=== PATIENT | female | born 1990 | race Caucasian/White ===

== ENCOUNTER 2016-10-09 17:24 | Emergency (ER) | payer BC ==
[2016-10-09 17:45] VITALS: BP 130/89; PULSE 90; O2SAT 96
--- NOTE | 2016-10-09 17:50 | ERPHSYRPT ---
- History of Present Illness Time Seen by Provider: 10/09/16 17:45 Source: patient Physician History: The patient is a 26-year-old female with a friend complaining of hurting her low back when she slipped while working with her donkey. This happened earlier today. Her low back muscles have been painful now. She has a past medical history of back pain. She denies any numbness or tingling in her legs. Timing/Duration: today Method of Injury: fall Quality: aching Back Pain Location: lumbar spine, paraspinous muscles Severity of Pain-Max: moderate Severity of Pain-Current: moderate Modifying Factors: Improves With: nothing Associated Symptoms: denies symptoms Previous symptoms: same symptoms as today Allergies/Adverse Reactions: No Known Drug Allergies Allergy (Verified 10/09/16 17:38) Home Medications: Bupropion HCl 150 mg Sr [Wellbutrin SR 150 MG] 200 mg PO BID 10/29/15 [ History] Vits W-Ca,Fe,FA(<1Mg) [] 1 each PO DAILY 10/09/16 [History] Hx Tetanus, Diphtheria Vaccination/Date Given: Yes (unknown) Hx Influenza Vaccination/Date Given: No Hx Pneumococcal Vaccination/Date Given: No - Review of Systems Constitutional: No Fever, No Chills Eyes: No Symptoms Ears, Nose, & Throat: No Symptoms Respiratory: No Cough, No Dyspnea Cardiac: No Chest Pain, No Edema, No Syncope Abdominal/Gastrointestinal: No Abdominal Pain, No Nausea, No Vomiting, No Diarrhea Genitourinary Symptoms: No Dysuria Musculoskeletal: Back Pain, Fall Skin: No Rash Neurological: No Dizziness, No Focal Weakness, No Sensory Changes Psychological: No Symptoms Endocrine: No Symptoms Hematologic/Lymphatic: No Symptoms Immunological/Allergic: No Symptoms All Other Systems: Reviewed and Negative - Past Medical History Pertinent Past Medical History: Yes Neurological History: No Pertinent History ENT History: No Pertinent History Cardiac History: Hypertension Respiratory History: No Pertinent History Endocrine Medical History: No Pertinent History Musculoskeletal History: Other GI Medical History: No Pertinent History History: No Pertinent History Psycho-Social History: Anxiety, Depression Female Reproductive Disorders: No Pertinent History Other Medical History: CONSTIPATION - Past Surgical History Past Surgical History: No Neuro Surgical History: No Pertinent History Cardiac: No Pertinent History Respiratory: No Pertinent History Gastrointestinal: No Pertinent History Genitourinary: No Pertinent History Musculoskeletal: No Pertinent History Female Surgical History: No Pertinent History Other Surgical History: excision of back cyst - Aug 2015 - Social History Smoking Status: Never smoker Exposure to second hand smoke: Yes Drug Use: none Patient Lives Alone: No - Physical Exam General Appearance: no apparent distress, alert Eye Exam: PERRL/EOMI, eyes nml inspection Neck Exam: normal inspection, non-tender, supple, full range of motion, No meningismus, No midline tenderness Respiratory Exam: normal breath sounds, lungs clear, No respiratory distress Cardiovascular Exam: regular rate/rhythm, normal heart sounds Gastrointestinal Exam: soft, No tenderness, No mass Back Exam: muscle spasm (lower bilateral paraspinous muscles), No vertebral tenderness Extremity Exam: normal inspection, normal range of motion, No calf tenderness, No pedal edema Neurologic Exam: alert, oriented x 3, cooperative, program analyst II-XII nml as tested, normal mood/affect, nml station & gait, sensation nml, No motor deficits Skin Exam: normal color, warm, dry, No rash SpO2 Interpretation: normal - Progress Progress: improved Counseled pt/family regarding: diagnosis - Departure Time of Disposition: 17:52 Departure Disposition: Home Clinical Impression: Back pain Condition: Stable Critical Care Time: No Additional Instructions: Take tylenol and ibuprofen as needed. Apply ice as needed. Take flexeril 10 mg every 8 hrs as needed. Prescriptions: Cyclobenzaprine HCl [Flexeril] 10 mg PO Q8H PRN PRN #10 tablet PRN Reason: Pain
[2016-10-09] MEDS ORDERED: TORAdol 30 mg Injection IM ONE (18:06)
[2016-10-09] MEDS ORDERED: TORAdol 30 mg Injection ONE (18:08)
== END 2016-10-09 18:02 | disposition home or self-care (01) ==
LOC: ED 17:24
DX: M54.9 Dorsalgia, unspecified (principal); W18.39XA Other fall on same level, initial encounter; I10 Essential (primary) hypertension
CPT/HCPCS: 96372; 99281; 99284; J1885

== ENCOUNTER 2017-01-18 06:11 | Emergency (ER) | payer BC ==
[2017-01-18] MEDS ORDERED: Reglan 10 MG/2 ML IV ONE (06:25)
[2017-01-18] MEDS ORDERED: BENADRYL 50 MG/ML IV ONE (06:25)
[2017-01-18] MEDS ORDERED: Sodium Chloride 0.9% 1000 ML 1,000 ML IV STA (06:25)
[2017-01-18] MEDS ORDERED: TORAdol 30 mg Injection IV ONE (06:25)
[2017-01-18] MEDS ORDERED: TORAdol 30 mg Injection ONE (06:37)
[2017-01-18] MEDS ORDERED: Reglan 10 MG/2 ML ONE (06:37)
[2017-01-18] MEDS ORDERED: BENADRYL 50 MG/ML ONE (06:37)
[2017-01-18] MEDS ORDERED: Sodium Chloride 0.9% 1000 ML 1,000 ML ONE (06:38)
--- NOTE | 2017-01-18 06:46 | ERPHSYRPT ---
- History of Present Illness Time Seen by Provider: 01/18/17 06:13 Source: patient, family () Patient Subjective Stated Complaint: Pt sts headaches off and on for awhile. Sts today pain 10/10 with nausea and dizziness. Sts headache has been pretty constant for the last few weeks after a control change. Pt sts lights and loud noises increase pain. Sts similar to headaches in the past. Triage Nursing Assessment: Pt alert, oriented, answers all questions appropriately. Skin p/w/d, resps non-labored. Follows all commands appropriately. Ambulatory, steady gait noted. Physician History: CC: headache HX: 26 y/o patient of JAMI Locke. She has hx of some headaches in the past. She had been on OCP and stopped it due to headache. She restarted a different kind thru Dr De La Garza. Now has headaches again. Worse in left. No fever. She has photophobia. Headache rather severe. Not better with cold compress. No N/T/W. Last headache of this severity was one month ago. Severity of Pain-Max: severe Severity of Pain-Current: severe Allergies/Adverse Reactions: No Known Drug Allergies Allergy (Verified 01/18/17 06:19) Home Medications: Bupropion HCl 150 mg Sr [Wellbutrin SR 150 MG] 200 mg PO BID 10/29/15 [ History] Vits W-Ca,Fe,FA(<1Mg) [] 1 each PO DAILY 10/09/16 [History] Desogestrel-Ethinyl Estradiol [Enskyce] 1 each PO 01/18/17 [History] Loratadine 10 mg PO 01/18/17 [History] Nortriptyline HCl 25 mg PO HS 01/18/17 [History] Hx Tetanus, Diphtheria Vaccination/Date Given: Yes (unknown) Hx Influenza Vaccination/Date Given: No Hx Pneumococcal Vaccination/Date Given: No Immunizations Up to Date: Yes - Review of Systems Constitutional: No Fever, No Chills Eyes: Photophobia, No Vision Changes Ears, Nose, & Throat: No Symptoms Respiratory: No Cough, No Dyspnea Cardiac: No Chest Pain Abdominal/Gastrointestinal: Nausea, No Abdominal Pain, No Vomiting Musculoskeletal: No Back Pain, No Neck Pain Skin: No Rash Neurological: Headache, No Focal Weakness, No Parasthesia All Other Systems: Reviewed and Negative - Past Medical History Pertinent Past Medical History: Yes Neurological History: No Pertinent History ENT History: No Pertinent History Cardiac History: Hypertension Respiratory History: No Pertinent History Endocrine Medical History: No Pertinent History Musculoskeletal History: Other GI Medical History: No Pertinent History History: No Pertinent History Psycho-Social History: Anxiety, Depression Female Reproductive Disorders: No Pertinent History Other Medical History: CONSTIPATION - Past Surgical History Past Surgical History: No Neuro Surgical History: No Pertinent History Cardiac: No Pertinent History Respiratory: No Pertinent History Gastrointestinal: No Pertinent History Genitourinary: No Pertinent History Musculoskeletal: No Pertinent History Female Surgical History: No Pertinent History Other Surgical History: excision of back cyst - Aug 2015 - Social History Smoking Status: Never smoker Exposure to second hand smoke: No Drug Use: none Patient Lives Alone: No - Female History Hx Last Menstrual Period: unsure of last regular period - spotting now - Nursing Vital Signs Nursing Vital Signs: Initial Vital Signs Temperature 97.8 F Temperature Source Oral Pulse Rate 91 Respiratory Rate 16 Blood Pressure [Right Arm] 122/83 Pain Intensity 10 - Physical Exam General Appearance: alert Eye Exam: PERRL/EOMI, photophobia Ears, Nose, Throat Exam: normal ENT inspection, moist mucous membranes Neck Exam: normal inspection, non-tender, supple, No meningismus Respiratory Exam: normal breath sounds, lungs clear Cardiovascular Exam: regular rate/rhythm Gastrointestinal/Abdominal Exam: soft, No tenderness, No distention Extremity Exam: normal inspection, normal range of motion Mental Status Exam: alert, oriented x 3, cooperative robotype operator Exam: normal hearing, normal speech, PERRL Coordination/Gait Exam: normal gait, normal cerebellar function Motor/Sensory Exam: no motor deficit, no sensory deficit Skin Exam: warm, dry, No rash SpO2 Interpretation: normal SpO2: 99 Oxygen Delivery: Room Air - Course Nursing assessment & vital signs reviewed: Yes Ordered Tests: Active Orders 24 hr Category Date Time Status IV Insertion STAT Care 01/18/17 06:25 Active Oxygen-ED Only NON-REBREATHER 100% Care 01/18/17 06:25 Active HCG,QUALITATIVE URINE Stat Lab 01/18/17 06:26 Completed VENOUS BLOOD GAS Urgent Lab 01/18/17 06:45 Completed Medication Summary Generic Name Dose Route Start Last Admin Trade Name Freq PRN Reason Stop Dose Admin Sodium Chloride 1,000 mls @ 999 mls/hr 01/18/17 06:25 01/18/17 06:48 Sodium Chloride 0.9% 1000 Ml IV 01/18/17 07:25 999 mls/hr .Q1H1M STA Administration Discontinued Medications Generic Name Dose Route Start Last Admin Trade Name Mandy PRN Reason Stop Dose Admin Diphenhydramine HCl 25 mg 01/18/17 06:25 01/18/17 06:47 Benadryl 50 Mg/Ml IV 01/18/17 06:26 25 mg STAT ONE Administration Diphenhydramine HCl Confirm 01/18/17 06:37 Benadryl 50 Mg/Ml Administered 01/18/17 06:38 Dose 50 mg .ROUTE .STK-MED ONE Sodium Chloride Confirm 01/18/17 06:38 Sodium Chloride 0.9% 1000 Ml Administered 01/18/17 06:39 Dose 1,000 mls @ ud .ROUTE .STK-MED ONE Ketorolac Tromethamine 30 mg 01/18/17 06:25 01/18/17 06:47 Toradol 30 Mg Injection IV 01/18/17 06:26 30 mg STAT ONE Administration Ketorolac Tromethamine Confirm 01/18/17 06:37 Toradol 30 Mg Injection Administered 01/18/17 06:38 Dose 30 mg .ROUTE .STK-MED ONE Metoclopramide HCl 10 mg 01/18/17 06:25 01/18/17 06:48 Reglan 10 Mg/2 Ml IV 01/18/17 06:26 10 mg STAT ONE Administration Metoclopramide HCl Confirm 01/18/17 06:37 Reglan 10 Mg/2 Ml Administered 01/18/17 06:38 Dose 10 mg .ROUTE .STK-MED ONE Lab/Rad Data: Laboratory Results 01/18/17 01/18/17 Range/Units 06:45 06:26 VBG pH 7.39 (7.32-7.42) VBG pCO2 at Pat Temp 42 (42-55) mm/Hg VBG pO2 at Pat Temp 35 (25-40) mm/Hg VBG HCO3 25.4 (22-28) meq/L VBG O2 Sat (Misty) 74.8 L (95-100) VBG Base Excess 0.3 (-2.0-2.0) VBG Hemoglobin 14.4 VBG Carboxyhemoglobin 3.6 (0.0-6.9) % T HGB POC Potassium 4.0 (3.5-5.1) Urine HCG, Qual NEGATIVE (Negative) - Progress Progress Note: 01/18/17 06:43 Trial oxygen. Not much relief. Will check VBG. HCG negative. IVF, benadryl, reglan, and toradol ordered for headache relief. Advised she follow up with JAMI Locke to discuss. Possibly this migraine type phenomena is related to her hormone manipulation. 01/18/17 07:03 Pain improved to level 2 after meds. Will release with migraine instructions. Counseled pt/family regarding: lab results, diagnosis, need for follow-up - Departure Time of Disposition: 07:04 Departure Disposition: Home Clinical Impression: Headache Qualifiers: Headache type: unspecified Headache chronicity pattern: episodic headache Intractability: intractable Qualified Code(s): R51 - Headache Condition: Stable Critical Care Time: No Referrals: WENDIE LOCKE [NON-STAFF PHY W/O PRIVILEGES] - Instructions: Headache Additional Instructions: HEADACHE 1. After discharge from the emergency department, you should rest at home in a cool, dark, quiet place for 12-24 hours. 2. If any of the following signs or symptoms are noticed, you should be re- evaluated right away: A. Visual changes B. Stiff Neck C. Change in quality or location of pain D. Fever E. Recurrent vomiting 3. If pain medications were prescribed or given, they may cause drowsiness. Follow up with JAMI Locke this week. No driving today and stay with family. Return for problems or concerns.
[2017-01-18 06:51] LABS: VBG BASE EXCESS 0.3 (-2.0-2.0); VBG CARBOXYHEMOGLOBIN 3.6 % T HGB (0.0-6.9); VBG HCO3- 25.4 meq/L (22-28); VBG HEMOGLOBIN 14.4; VBG O2 SATURATION 74.8 (95-100); VBG pH 7.39 (7.32-7.42)
[2017-01-18 07:52] VITALS: BP 123/76; PULSE 87; O2SAT 98
== END 2017-01-18 07:51 | disposition home or self-care (01) ==
LOC: ED 06:11
DX: R51 Headache (principal); R11.0 Nausea; R42 Dizziness and giddiness; Z79.899 Other long term (current) drug therapy; I10 Essential (primary) hypertension
CPT/HCPCS: 36000; 82805; 84703; 96360; 96374; 96375; 99284; J1200; J1885

== ENCOUNTER 2017-02-13 13:02 | Emergency (ER) | payer BC ==
[2017-02-13 13:10] VITALS: BP 165/98
[2017-02-13] MEDS ORDERED: Nitrostat 0.4 MG (ED) SL ONE ×2 (13:23→13:27)
[2017-02-13] MEDS ORDERED: BABY ASPIRIN 81 MG CHEW PO ONE (13:23)
[2017-02-13] MEDS ORDERED: Sodium Chloride 0.9% 1000 ML 1,000 ML ONE (13:27)
[2017-02-13] MEDS ORDERED: BABY ASPIRIN 81 MG CHEW ONE (13:27)
--- NOTE | 2017-02-13 13:28 | ERPHSYRPT ---
- History of Present Illness Time Seen by Provider: 02/13/17 13:25 Historian: patient, family Exam Limitations: no limitations Patient Subjective Stated Complaint: pt reports migranies et chest pain beginning on [id number]-[id number] diaphoresis-nausea with pain-pain substernal et nonradiaiting Triage Nursing Assessment: pt pink warm et orq-pfpod-bhoj easy et nonlabored- lungs clear et equal bialterally-cap refill 3 seconds-radial pulse regular et strong Physician History: pt reports migranies et chest pain beginning on avbspim-aybfsdgvbqvs-bessobl diaphoresis-nausea with pain-pain sub sternal and non radiating, patient has strong family hx of heart disease Timing/Duration: day(s) (4-5 days) Activities at Onset: none Quality: stabbing Location: substernal Chest Pain Radiation: no radiation Severity of Pain-Max: mild Severity of Pain-Current: mild Modifying Factors: Improves With: nothing Aspirin Treatment Today: no aspirin today Allergies/Adverse Reactions: No Known Drug Allergies Allergy (Verified 02/13/17 13:10) Home Medications: Bupropion HCl 150 mg Sr [Wellbutrin SR 150 MG] 200 mg PO BID 10/29/15 [ History] Vits W-Ca,Fe,FA(<1Mg) [] 1 each PO DAILY 10/09/16 [History] Desogestrel-Ethinyl Estradiol [Enskyce] 1 each PO UD 01/18/17 [History] Loratadine 10 mg PO UD 01/18/17 [History] Nortriptyline HCl 25 mg PO HS 01/18/17 [History] Hx Tetanus, Diphtheria Vaccination/Date Given: Yes Hx Influenza Vaccination/Date Given: Yes (2015) Hx Pneumococcal Vaccination/Date Given: No Immunizations Up to Date: Yes - Review of Systems Constitutional: No Fever, No Chills Eyes: No Symptoms Ears, Nose, & Throat: No Symptoms Respiratory: No Cough, No Dyspnea Cardiac: Chest Pain, No Edema, No Syncope Abdominal/Gastrointestinal: No Abdominal Pain, No Nausea, No Vomiting, No Diarrhea Genitourinary Symptoms: No Dysuria Musculoskeletal: No Back Pain, No Neck Pain Skin: No Rash Neurological: No Dizziness, No Focal Weakness, No Sensory Changes Psychological: No Symptoms Endocrine: No Symptoms All Other Systems: Reviewed and Negative - Past Medical History Pertinent Past Medical History: Yes Neurological History: No Pertinent History ENT History: No Pertinent History Cardiac History: Hypertension Respiratory History: No Pertinent History Endocrine Medical History: No Pertinent History Musculoskeletal History: Other GI Medical History: No Pertinent History History: No Pertinent History Psycho-Social History: Anxiety, Depression Female Reproductive Disorders: No Pertinent History Other Medical History: CONSTIPATION - Past Surgical History Past Surgical History: No Neuro Surgical History: No Pertinent History Cardiac: No Pertinent History Respiratory: No Pertinent History Gastrointestinal: No Pertinent History Genitourinary: No Pertinent History Musculoskeletal: No Pertinent History Female Surgical History: No Pertinent History Other Surgical History: excision of back cyst - Aug 2015 - Social History Smoking Status: Never smoker Exposure to second hand smoke: No Drug Use: none Patient Lives Alone: No - Female History Hx Last Menstrual Period: control - Nursing Vital Signs Nursing Vital Signs: Initial Vital Signs Temperature 98.3 F Temperature Source Oral Pulse Rate [] 100 Pulse Rate 100 Respiratory Rate 20 Blood Pressure [] 165/98 Pain Intensity 5 - Physical Exam General Appearance: no apparent distress, alert Eye Exam: PERRL/EOMI, eyes nml inspection Ears, Nose, Throat Exam: normal ENT inspection, moist mucous membranes Neck Exam: normal inspection, non-tender, supple, full range of motion Respiratory Exam: normal breath sounds, lungs clear, No respiratory distress Cardiovascular Exam: regular rate/rhythm, normal heart sounds Gastrointestinal/Abdomen Exam: soft, No tenderness, No mass Back Exam: normal inspection, No CVA tenderness, No vertebral tenderness Extremity Exam: normal inspection, normal range of motion Neurologic Exam: alert, oriented x 3, cooperative, normal mood/affect, sensation nml, No motor deficits Skin Exam: normal color, warm, dry SpO2: 100 Oxygen Delivery: Room Air - Course Nursing assessment & vital signs reviewed: Yes EKG Interpreted by Me: Sinus Rhythm - Radiology Exams Chest X-ray Interpretation: Reviewed by me Ordered Tests: Active Orders 24 hr Category Date Time Status Memorial Designer STAT Care 02/13/17 13:27 Active EKG-ER Only STAT Care 02/13/17 13:23 Active Pulse Oximetry (ED) STAT Care 02/13/17 13:27 Active CHEST 2 VIEWS (PA AND LAT) Stat Exams 02/13/17 13:24 Taken CBC W DIFF Stat Lab 02/13/17 13:15 Completed CMP Stat Lab 02/13/17 13:15 Completed TROPONIN Stat Lab 02/13/17 13:15 Completed Medication Summary Generic Name Dose Route Start Last Admin Trade Name Mandy PRN Reason Stop Dose Admin Sodium Chloride 1,000 mls @ 50 mls/hr 02/13/17 13:30 02/13/17 13:29 Sodium Chloride 0.9% 1000 Ml IV 03/15/17 13:29 50 mls/hr .Q20H VINAYAK Administration Discontinued Medications Generic Name Dose Route Start Last Admin Trade Name Mandy PRN Reason Stop Dose Admin Aspirin 324 mg 02/13/17 13:23 02/13/17 13:30 Baby Aspirin 81 Mg Chew PO 02/13/17 13:24 324 mg STAT ONE Administration Aspirin Confirm 02/13/17 13:27 Baby Aspirin 81 Mg Chew Administered 02/13/17 13:28 Dose 324 mg .ROUTE .STK-MED ONE Nitroglycerin 0.4 mg 02/13/17 13:23 02/13/17 13:30 Nitrostat 0.4 Mg (Ed) SL 02/13/17 13:24 0.4 mg STAT ONE Administration Nitroglycerin Confirm 02/13/17 13:27 Nitrostat 0.4 Mg (Ed) Administered 02/13/17 13:28 Dose 0.4 mg SL .STK-MED ONE Ondansetron HCl Confirm 02/13/17 13:36 Zofran 4 Mg/2 Ml Vial Administered 02/13/17 13:37 Dose 4 mg .ROUTE .STK-MED ONE Ondansetron HCl 4 mg 02/13/17 13:39 02/13/17 13:40 Zofran 4 Mg/2 Ml Vial IV 02/13/17 13:40 4 mg STAT ONE Administration Lab/Rad Data: Laboratory Result Diagrams 02/13/17 13:15 02/13/17 13:15 Laboratory Results 02/13/17 02/13/17 02/13/17 Range/Units 13:15 13:15 13:15 WBC 6.9 (4.0-10.5) K/mm3 RBC 4.50 (4.1-5.4) M/mm3 Hgb 13.4 (12.0-16.0) gm/dl Hct 38.8 (35-47) % MCV 86.2 (78-100) fl MCH 29.8 (26-32) pg MCHC 34.5 (32-36) g/dl RDW 12.6 (11.5-14.0) % Plt Count 306 (150-450) K/mm3 MPV 10.0 H (6-9.5) fl Gran % 51.7 (36.0-66.0) % Lymphocytes % 34.7 (24.0-44.0) % Monocytes % 12.0 (0.0-12.0) % Eosinophils % 1.3 (0.00-5.0) % Basophils % 0.3 (0.0-0.4) % Basophils # 0.02 (0-0.4) Sodium 142 (136-145) mEq/L Potassium 4.0 (3.5-5.1) mEq/L Chloride 106 (98-107) mEq/L Carbon Dioxide 25.0 (21-32) mEq/L Anion Gap 14.6 (5-15) MEQ/L BUN 8 L (9-20) mg/dL Creatinine 1.01 (0.55-1.30) mg/dl Estimated GFR > 60 ML/MIN Glucose 88 (70-110) MG/DL Calcium 8.9 (8.5-10.1) mg/dL Total Bilirubin 0.20 (0.2-1.0) mg/dL AST 17 (15-37) U/L ALT 24 (12-78) U/L Alkaline Phosphatase 75 (46-116) U/L Troponin I < 0.017 (0.000-0.056) ng/ml Serum Total Protein 7.5 (6.4-8.2) gm/dL Albumin 3.4 (3.4-5.0) g/dL - Progress Progress: improved Air Movement: good Blood Culture(s) Obtained: No Antibiotics given: No Counseled pt/family regarding: lab results, diagnosis, need for follow-up, rad results - Departure Time of Disposition: 14:06 Departure Disposition: Home Clinical Impression: Dyspepsia, Chest pain of uncertain etiology Condition: Stable Critical Care Time: Yes Critical Care Time(excluding separately billable procedures): 30-74 minutes Referrals: BRANDEE ANSARI [Primary Care Provider] - Instructions: Atypical Chest Pain, Gastroesophageal Reflux Disease (GERD), GERD Diet Prescriptions: Omeprazole 40 mg PO HS #30 capsule. Famotidine 20 mg [Pepcid 20 MG] 20 mg PO BID #60 tablet
[2017-02-13] MEDS ORDERED: Sodium Chloride 0.9% 1000 ML 1,000 ML IV SCH (13:30)
[2017-02-13 13:31] LABS: BASOPHIL % 0.3 % (0.0-0.4); Eosinophil % 1.3 % (0.00-5.0); Granulocytes % 51.7 % (36.0-66.0); Lymphocytes % 34.7 % (24.0-44.0); Mean Cell Volume 86.2 fl (78-100); Mean Corpuscular Hemoglobin 29.8 pg (26-32); Platelet Count 306 K/mm3 (150-450); Red Cell Distribution Width 12.6 % (11.5-14.0); White Blood Count 6.9 K/mm3 (4.0-10.5)
[2017-02-13] MEDS ORDERED: Zofran 4 MG/2 ML VIAL ONE (13:36)
[2017-02-13] MEDS ORDERED: Zofran 4 MG/2 ML VIAL IV ONE (13:39)
[2017-02-13 13:40] LABS: ALBUMIN 3.4 g/dL (3.4-5.0); ALKALINE PHOSPHATASE 75 U/L (46-116); ANION GAP 14.6 MEQ/L (5-15); BLOOD UREA NITROGEN 8 mg/dL (9-20); CHLORIDE 106 mEq/L (98-107); Glucose 88 MG/DL (70-110); SGOT/AST 17 U/L (15-37); SGPT/ALT 24 U/L (12-78); SODIUM 142 mEq/L (136-145); Total Protein 7.5 gm/dL (6.4-8.2)
[2017-02-13 13:57] VITALS: PULSE 100
[2017-02-13 14:09] VITALS: O2SAT 100
--- NOTE | 2017-02-13 22:06 | XRAY ---
Indication: Chest pain. Comparison: December 11, 2014. PA/lateral chest again demonstrates normal heart, lungs, and bony thorax.
== END 2017-02-13 14:19 | disposition home or self-care (01) ==
LOC: ED 13:02
DX: R10.13 Epigastric pain (principal); R07.89 Other chest pain; R61 Generalized hyperhidrosis; R11.0 Nausea; I10 Essential (primary) hypertension
CPT/HCPCS: 36000; 36415; 71020; 80053; 84484; 85025; 93005; 93041; 96360; 96361; 99283; 99285; J2405; A9270-GY

== ENCOUNTER 2017-10-03 11:37 | Emergency (ER) | payer BC ==
--- NOTE | 2017-10-03 12:07 | ERPHSYRPT ---
- History of Present Illness Time Seen by Provider: 10/03/17 11:54 Source: patient, family () Patient Subjective Stated Complaint: pt reports constipation intermittant for several days-mild relief with miralax no other tx tried-reports low intermittant cramping beginning garth 3 days ago-states it has not changed-denies vaginal discharge Triage Nursing Assessment: pt pink warm and tlg-tovsf-evls easy and nonlabored- abd soft and nontender to palp-pt is garth 8 wks Physician History: CC: abdominal cramping Hx: 27 y/o patient of Dr Alexander is around 8 weeks . Some constipation, abd cramping, and clear discharge today. No fever, vaginal bleeding, dysuria. She had prior diagnostic laparoscopy remotely. No intercourse since discovering . She had in vitro in May last year but no results. This current was naturally occuring. Allergies/Adverse Reactions: No Known Drug Allergies Allergy (Verified 10/03/17 11:55) Home Medications: Vits W-Ca,Fe,FA(<1Mg) [] 1 each PO DAILY 10/09/16 [History] Hx Tetanus, Diphtheria Vaccination/Date Given: Yes Hx Influenza Vaccination/Date Given: Yes (2016) Hx Pneumococcal Vaccination/Date Given: No - Review of Systems Constitutional: No Fever, No Chills Eyes: No Symptoms Ears, Nose, & Throat: No Symptoms Respiratory: No Cough, No Dyspnea Cardiac: No Chest Pain Abdominal/Gastrointestinal: Abdominal Pain (abd cramping), No Nausea, No Vomiting, No Diarrhea Genitourinary Symptoms: , Vaginal Discharge (clear), No Dysuria, No Vaginal Bleeding Musculoskeletal: No Back Pain Skin: No Rash Neurological: No Headache All Other Systems: Reviewed and Negative - Past Medical History Pertinent Past Medical History: Yes Neurological History: No Pertinent History ENT History: No Pertinent History Cardiac History: Hypertension Respiratory History: Asthma Endocrine Medical History: No Pertinent History Musculoskeletal History: Other GI Medical History: No Pertinent History History: No Pertinent History Psycho-Social History: Anxiety, Depression Female Reproductive Disorders: No Pertinent History Other Medical History: CONSTIPATION - Past Surgical History Past Surgical History: Yes Neuro Surgical History: No Pertinent History Cardiac: No Pertinent History Respiratory: No Pertinent History Gastrointestinal: No Pertinent History Genitourinary: No Pertinent History Musculoskeletal: No Pertinent History Female Surgical History: Other Other Surgical History: excision of back cyst - Aug 2015 - Social History Smoking Status: Never smoker Exposure to second hand smoke: No Drug Use: none Patient Lives Alone: No - Female History Hx Now: Yes - Nursing Vital Signs Nursing Vital Signs: Initial Vital Signs Temperature 97.9 F 10/03/17 11:49 Pulse Rate 89 10/03/17 11:49 Respiratory Rate 20 10/03/17 11:49 Blood Pressure 141/84 10/03/17 11:49 O2 Sat by Pulse Oximetry 100 10/03/17 11:49 Pain Scale Pain Intensity 1 - Physical Exam General Appearance: alert, obese, other (pleasant lady) Eye Exam: PERRL/EOMI Ears, Nose, Throat Exam: normal ENT inspection, moist mucous membranes Neck Exam: normal inspection, non-tender, supple Respiratory Exam: normal breath sounds, lungs clear Cardiovascular Exam: regular rate/rhythm Gastrointestinal/Abdomen Exam: soft, No tenderness, No distention Pelvic Exam: normal external exam, vaginal discharge (physiologic), No vaginal bleeding Back Exam: normal inspection Extremity Exam: normal inspection, normal range of motion Neurologic Exam: alert, oriented x 3, cooperative, customs inspector II-XII nml as tested, sensation nml, No motor deficits Skin Exam: warm, dry, No rash SpO2 Interpretation: normal SpO2: 100 Oxygen Delivery: Room Air - Course Nursing assessment & vital signs reviewed: Yes - Radiology Ultrasound Exam ob Ultrasound: tele radiology report (single viable 8 week IUP) Ordered Tests: Active Orders 24 hr Category Date Time Status Cath for Specimen-Straight STAT Care 10/03/17 12:00 Active Pelvic Exam Assist STAT Care 10/03/17 11:59 Active OB TRANSVAGINAL [US] Stat Exams 10/03/17 12:00 Completed CBC W DIFF Stat Lab 10/03/17 11:59 Completed CULTURE,URINE Stat Lab 10/03/17 12:46 Received HCG, Quantitative (Inhouse) Stat Lab 10/03/17 11:59 Ordered UA W/ MICROSCOPIC Stat Lab 10/03/17 12:46 Completed Wet Prep Stat Lab 10/03/17 12:46 Completed Lab/Rad Data: Laboratory Result Diagrams 10/03/17 11:59 Laboratory Results 10/03/17 10/03/17 10/03/17 Range/Units 12:46 12:46 11:59 WBC 9.8 (4.0-10.5) K/mm3 RBC 4.40 (4.1-5.4) M/mm3 Hgb 13.0 (12.0-16.0) gm/dl Hct 38.5 (35-47) % MCV 87.5 (78-100) fl MCH 29.5 (26-32) pg MCHC 33.8 (32-36) g/dl RDW 12.4 (11.5-14.0) % Plt Count 343 (150-450) K/mm3 MPV 9.5 (6-9.5) fl Gran % 61.0 (36.0-66.0) % Lymphocytes % 25.4 (24.0-44.0) % Monocytes % 12.3 H (0.0-12.0) % Eosinophils % 1.1 (0.00-5.0) % Basophils % 0.2 (0.0-0.4) % Basophils # 0.02 (0-0.4) Ur Collection Type CATH Urine Color YELLOW (YELLOW) Urine Appearance CLEAR (CLEAR) Urine pH 6.0 (5-6) Ur Specific [place] 1.005 (1.005-1.025) Urine Protein NEGATIVE (Negative) Urine Ketones NEGATIVE (NEGATIVE) Urine Blood 50 (0-5) Mychal/ul Urine Nitrite NEGATIVE (NEGATIVE) Urine Bilirubin NEGATIVE (NEGATIVE) Urine Urobilinogen NORMAL (0-1) mg/dL Ur Leukocyte Esterase TRACE (NEGATIVE) Urine Microscopic RBC 0-2 (0-2) /HPF Ur Epithelial Cells FEW (FEW) /HPF Urine Bacteria FEW (NEGATIVE) /HPF Urine Culture Reflexed YES (NO) Urine Glucose NEGATIVE (NEGATIVE) mg/dL WBC (Wet Prep) None Seen RBC (Wet Prep) Rare Epi Cells (Wet Prep) Few Bacteria (Wet Prep) Few Clue Cells (Wet Prep) Few Trichomonas (Wet Prep) None Seen Budding Yeast (Wet Prp) None Seen Specimen Received 10-03-17 1300 - Progress Progress Note: 10/03/17 13:12 Pt stable. Sonogram reassuring. Will release with instructions to follow up with Dr Alexander. Counseled pt/family regarding: lab results, diagnosis, need for follow-up, rad results - Departure Time of Disposition: 13:13 Departure Disposition: Home Clinical Impression: 8 week intrauterine Condition: Stable Critical Care Time: No Referrals: MONET ALEXANDER [ACTIVE STAFF] - Instructions: Nutrition Before and During , Taking Ylsl-ozo-Xzfjzln Medicines During Additional Instructions: Drink plenty of fluids. Follow up with Dr Alexander. Continue vitamins.
[2017-10-03 12:42] LABS: BASOPHIL % 0.2 % (0.0-0.4); Basophil (Absolute #) 0.02 (0-0.4); Eosinophil % 1.1 % (0.00-5.0); Eosinophil (Absolute #) 0.11 (0-0.5); Granulocyte Absolute (ANC) 5.94 (1.4-6.9); Hematocrit 38.5 % (35-47); Lymphocyte (Absolute #) 2.48 (1.0-4.6); Lymphocytes % 25.4 % (24.0-44.0); Mean Cell Volume 87.5 fl (78-100); Mean Corpuscular Hemoglobin 29.5 pg (26-32); Mean Corpuscular Hgb Concent. 33.8 g/dl (32-36); Mean Platelet Volume 9.5 fl (6-9.5); Monocytes % 12.3 % (0.0-12.0); Platelet Count 343 K/mm3 (150-450); Red Cell Distribution Width 12.4 % (11.5-14.0); White Blood Count 9.8 K/mm3 (4.0-10.5)
[2017-10-03 12:52] LABS: Bacteria Few; Clue Cells Few; Red Blood Cells Rare; Trichomonas None Seen; White Blood Cells None Seen
[2017-10-03 12:54] VITALS: PULSE 90
--- NOTE | 2017-10-03 12:57 | XRAY ---
Indication: Cramping. Two-dimensional transvaginal early OB ultrasound performed. Comparison: None There is a single intrauterine gestational sac with presence of a single pole. The mean crown-rump length measures 1.55 cm corresponding to 8 weeks 0 days. heart rate 154 BPM. No abnormal subchorionic fluid collection. Right ovary demonstrates a 2.5 cm corpus luteal cyst. Left ovary unremarkable. No free fluid. Impression: Single viable intrauterine measuring 8 weeks 0 days. Expected date confinement is May 15, 2018.
[2017-10-03 13:03] LABS: Appearance CLEAR (CLEAR); Bacteria FEW /HPF (NEGATIVE); Bilirubin NEGATIVE (NEGATIVE); Blood 50 Ery/ul (0-5); Epithelial Cells FEW /HPF (FEW); Glucose NEGATIVE (NEGATIVE); Ketones NEGATIVE (NEGATIVE); Leukocyte Esterase TRACE (NEGATIVE); Nitrite NEGATIVE (NEGATIVE); Protein,Urine Dip NEGATIVE (Negative); Specific Gravity 1.005 (1.005-1.025); Urobilinogen NORMAL mg/dL (0-1)
[2017-10-03 13:20] VITALS: BP 138/78; O2SAT 98
[2017-10-03 16:42] LABS: ABO TYPING A
[2017-10-03 16:43] LABS: Antibody Screen NEGATIVE (NEGATIVE); RH TYPING POSITIVE
== END 2017-10-03 13:21 | disposition home or self-care (01) ==
LOC: ED 11:37
DX: O26.891 Other specified pregnancy related conditions, first trimester (principal); Z3A.08 8 weeks gestation of pregnancy; K59.00 Constipation, unspecified
CPT/HCPCS: 36415; 76815; 76817; 81000; 84702; 85025; 86850; 86900; 86901; 87086; 87210; 87490; 87590; 99284; P9612

== ENCOUNTER 2017-11-22 17:59 | Emergency (ER) | payer BC ==
--- NOTE | 2017-11-22 19:18 | ERPHSYRPT ---
- History of Present Illness Time Seen by Provider: 11/22/17 19:12 Source: patient Patient Subjective Stated Complaint: cramping in lower abd today. is 15 wks . denies any vaginal discharge or bleeding. states vaginal area itches. Triage Nursing Assessment: ambulated to room per self. skin w/d, color normal, resp easy. tender lower abd. urine yellow, clear. denies any vaginal bleeding Physician History: PATIENT IS A 15 WEEKS GESTATION WITH AN EDC 05/2018 COMPLAINS OF ABDOMINAL CRAMPING THROUGHOUT THE DAY. DENIES VAGINAL BLEEDING. COMPLAINS OF VAGINAL ITCHING. Timing/Duration: today Activites at Onset: none Quality: cramping Onset Location: suprapubic Pain Radiation: none Severity of Pain-Max: moderate Severity of Pain-Current: none Sexual intercourse history: non-contributory Modifying Factors: Improves With: nothing Associated Symptoms: denies symptoms Allergies/Adverse Reactions: miconazole [From Monistat 7] Allergy (Verified 11/22/17 18:15) Home Medications: Vits W-Ca,Fe,FA(<1Mg) [] 1 each PO DAILY 10/09/16 [History] Hydroxyzine HCl 25 mg [Atarax 25 mg] 25 mg PO TID 11/22/17 [History] Melatonin/Pyridoxine HCl (B6) [Melatonin 10 mg Tablet] 1 each PO HS 11/22/17 [ History] Polyethylene Glycol 3350 17 gm [Miralax Powder 17GM PACKET] 17 gm PO DAILY [History] Hx Tetanus, Diphtheria Vaccination/Date Given: Yes Hx Influenza Vaccination/Date Given: Yes (2016) Hx Pneumococcal Vaccination/Date Given: No - Review of Systems Constitutional: No Fever, No Chills Eyes: No Symptoms Ears, Nose, & Throat: No Symptoms Respiratory: No Cough, No Dyspnea Cardiac: No Chest Pain, No Edema, No Syncope Abdominal/Gastrointestinal: Abdominal Pain, No Nausea, No Vomiting, No Diarrhea Genitourinary Symptoms: No Symptoms, No Dysuria Musculoskeletal: No Back Pain, No Neck Pain Skin: No Rash Neurological: No Dizziness, No Focal Weakness, No Sensory Changes Psychological: No Symptoms Endocrine: No Symptoms All Other Systems: Reviewed and Negative - Past Medical History Pertinent Past Medical History: Yes Neurological History: No Pertinent History ENT History: No Pertinent History Cardiac History: Hypertension Respiratory History: Asthma Endocrine Medical History: No Pertinent History Musculoskeletal History: Other GI Medical History: No Pertinent History History: No Pertinent History Psycho-Social History: Anxiety, Depression Female Reproductive Disorders: No Pertinent History Other Medical History: CONSTIPATION - Past Surgical History Past Surgical History: Yes Neuro Surgical History: No Pertinent History Cardiac: No Pertinent History Respiratory: No Pertinent History Gastrointestinal: No Pertinent History Genitourinary: No Pertinent History Musculoskeletal: No Pertinent History Female Surgical History: Other Other Surgical History: excision of back cyst - Aug 2015 - Social History Smoking Status: Never smoker Exposure to second hand smoke: No Drug Use: none Patient Lives Alone: No - Female History Hx Now: Yes - Nursing Vital Signs Nursing Vital Signs: Initial Vital Signs Temperature 97.7 F 11/22/17 18:10 Pulse Rate 81 11/22/17 18:10 Respiratory Rate 16 11/22/17 18:10 Blood Pressure 125/73 11/22/17 18:10 O2 Sat by Pulse Oximetry 100 11/22/17 18:10 Pain Scale Pain Intensity 0 - Physical Exam General Appearance: no apparent distress, alert Eye Exam: PERRL/EOMI, eyes nml inspection Ears, Nose, Throat Exam: normal ENT inspection, TMs normal, pharynx normal, moist mucous membranes Neck Exam: normal inspection, non-tender, supple, full range of motion Respiratory Exam: normal breath sounds, lungs clear, No respiratory distress Cardiovascular Exam: regular rate/rhythm, normal heart sounds, normal peripheral pulses Gastrointestinal/Abdomen Exam: soft, No tenderness, No mass Pelvic Exam: normal external exam, other (UTERINE SIZE 13-14 WEEKS GESTATION) Back Exam: normal inspection, normal range of motion, No CVA tenderness, No vertebral tenderness Extremity Exam: normal inspection, normal range of motion, pelvis stable Neurologic Exam: alert, oriented x 3, cooperative, automation engineer II-XII nml as tested, normal mood/affect, sensation nml, No motor deficits Skin Exam: normal color, warm, dry Lymphatic Exam: No adenopathy SpO2 Interpretation: normal SpO2: 99 Oxygen Delivery: Room Air - Radiology Ultrasound Exam OB Ultrasound: discussed w/radiologist (15 WEEKS INTRAUTERIN GESTATION, HEART 155) Ordered Tests: Active Orders 24 hr Category Date Time Status Clean Catch Urine Specimen STAT Care 11/22/17 19:19 Active IV Insertion STAT Care 11/22/17 19:18 Active OB >14 WKS 1st GESTATION [US] Stat Exams 11/22/17 Ordered UA W/RFX UR CULTURE Stat Lab 11/22/17 19:16 Completed Wet Prep Stat Lab 11/22/17 19:25 Completed Lab/Rad Data: Laboratory Results 11/22/17 11/22/17 Range/Units 19:25 19:16 Ur Collection Type CLEAN CATCH Urine Color YELLOW (YELLOW) Urine Appearance CLEAR (CLEAR) Urine pH 6.0 (5-6) Ur Specific [place] 1.010 (1.005-1.025) Urine Protein NEGATIVE (Negative) Urine Ketones NEGATIVE (NEGATIVE) Urine Blood NEGATIVE (0-5) Mychal/ul Urine Nitrite NEGATIVE (NEGATIVE) Urine Bilirubin NEGATIVE (NEGATIVE) Urine Urobilinogen NORMAL (0-1) mg/dL Ur Leukocyte Esterase NEGATIVE (NEGATIVE) Urine Culture Reflexed NO (NO) Urine Glucose NEGATIVE (NEGATIVE) mg/dL WBC (Wet Prep) Rare RBC (Wet Prep) Rare Epi Cells (Wet Prep) Rare Bacteria (Wet Prep) Few Clue Cells (Wet Prep) None Seen Trichomonas (Wet Prep) None Seen Budding Yeast (Wet Prp) None Seen Specimen Received 11/22/176 - Progress Counseled pt/family regarding: lab results, diagnosis - Departure Time of Disposition: 21:30 Departure Disposition: Home Clinical Impression: Condition: Stable Critical Care Time: No Referrals: BRANDEE ANSARI [Primary Care Provider] - Additional Instructions: CONSULT YOUR PRIMARY CARE PROVIDER FOR EVALUATION, AND TIME OFF WORK. RETURN TO EMERGENCY FOR VAGINAL BLEEDING OR INCREASING PAIN.
[2017-11-22 19:39] LABS: Appearance CLEAR (CLEAR); Bilirubin NEGATIVE (NEGATIVE); Blood NEGATIVE Ery/ul (0-5); Glucose NEGATIVE (NEGATIVE); Ketones NEGATIVE (NEGATIVE); Leukocyte Esterase NEGATIVE (NEGATIVE); Nitrite NEGATIVE (NEGATIVE); Protein,Urine Dip NEGATIVE (Negative); Urobilinogen NORMAL mg/dL (0-1)
[2017-11-22 19:57] LABS: Bacteria Few; Clue Cells None Seen; Red Blood Cells Rare; Trichomonas None Seen; White Blood Cells Rare
[2017-11-22 20:51] VITALS: BP 133/86; PULSE 76; O2SAT 98
--- NOTE | 2017-11-23 08:37 | XRAY ---
Indication: Pain. Two-dimensional early OB ultrasound performed. Comparison: October 03, 2017. Again there is a single viable intrauterine with heart rate 155 BPM. Posterior placenta without abruption/previa. BPD measures 3.20 cm corresponding to 16 weeks 0 day. HC measures 11.05 cm corresponding to 15 weeks 2 days. AC measures 9.06 cm corresponding to 15 weeks 2 days. FL measures 2.05 cm corresponding to 16 weeks 1 day. Impression: Again single viable intrauterine with mean gestational age 15 weeks 5 days. Normal progression of . Nothing acute. Comment: Preliminary report was given.
== END 2017-11-22 20:50 | disposition home or self-care (01) ==
LOC: ED 17:59
DX: O26.892 Other specified pregnancy related conditions, second trimester (principal); Z3A.15 15 weeks gestation of pregnancy
CPT/HCPCS: 36000; 76805; 81002; 87210; 87490; 87590; 99283; 99284

== ENCOUNTER 2017-12-28 18:17 | Observation (INO) | payer BC ==
[2017-12-28 18:46] VITALS: BP 119/64; PULSE 92
== END 2017-12-28 19:20 | disposition home or self-care (01) ==
LOC: UNDOADMOB 18:17 → OB 18:17 → UNDODISOB 19:20
PROVIDERS: ADMIT Family Medicine; ATTEND Family Medicine
DX: Z34.02 Encounter for supervision of normal first pregnancy, second trimester (principal)
CPT/HCPCS: G0378

== ENCOUNTER 2018-01-25 10:51 | Observation (INO) | payer BC | END 2018-01-25 11:50 | disposition home or self-care (01) | LOC: MED SURG 10:51 | PROVIDERS: ADMIT Family Medicine; ATTEND Family Medicine | DX: Z34.90 Encounter for supervision of normal pregnancy, unspecified, unspecified trimester (principal) | CPT/HCPCS: G0378 ==

== ENCOUNTER 2018-02-06 14:54 | Observation (INO) | payer BC ==
[2018-02-06 16:28] VITALS: BP 121/73; PULSE 89
--- NOTE | 2018-02-06 16:57 | XRAY ---
Indication: well-being following fall. 2-dimensional ultrasound performed. Comparison: December 29, 2017. Again there is a single viable intrauterine now in cephalic presentation. heart rate 140 BPM. Normal three-vessel cord and cord insertion previously documented. Visualized stomach, kidneys, and bladder are unremarkable. Again posterior placenta without abruption/previa. BPD measures 6.54 cm corresponding to 26 weeks 3 days. HC measures 23.66 cm corresponding to 25 weeks 5 days. AC measures 22.00 cm corresponding to 26 weeks 3 days. FL measures 4.95 cm corresponding to 26 weeks 5 days. MIRNA 9.0 cm. Impression: Again single viable intrauterine with mean gestational age 26 weeks 2 days. Normal progression of . No new/acute findings.
== END 2018-02-06 16:50 | disposition home or self-care (01) ==
LOC: OB 14:54
PROVIDERS: ADMIT Family Medicine; ATTEND Family Medicine
DX: O26.892 Other specified pregnancy related conditions, second trimester (principal); Z3A.25 25 weeks gestation of pregnancy; W11.XXXA Fall on and from ladder, initial encounter; Y92.219 Unspecified school as the place of occurrence of the external cause; Y99.0 Civilian activity done for income or pay
CPT/HCPCS: 76805; G0378

== ENCOUNTER 2018-02-20 15:33 | Observation (INO) | payer BC ==
[2018-02-20 17:58] LABS: Appearance HAZY (CLEAR)
[2018-02-20 17:59] LABS: Bilirubin NEGATIVE (NEGATIVE); Blood NEGATIVE Ery/ul (0-5); Glucose NEGATIVE (NEGATIVE); Ketones NEGATIVE (NEGATIVE); Leukocyte Esterase TRACE (NEGATIVE); Nitrite NEGATIVE (NEGATIVE); Protein,Urine Dip NEGATIVE (Negative); Urobilinogen NORMAL mg/dL (0-1)
[2018-02-20 18:00] LABS: Bacteria MODERATE /HPF (NEGATIVE); Epithelial Cells MODERATE /HPF (FEW)
[2018-02-20 18:39] LABS: Granulocyte Absolute (ANC) 14.19 (1.4-6.9); Hematocrit 34.6 % (35-47); Hemoglobin 11.9 gm/dl (12.0-16.0); Mean Cell Volume 87.8 fl (78-100); Mean Corpuscular Hemoglobin 30.2 pg (26-32); Mean Corpuscular Hgb Concent. 34.4 g/dl (32-36); Mean Platelet Volume 9.3 fl (6-9.5); Platelet Count 312 K/mm3 (150-450); Red Blood Count 3.94 M/mm3 (4.1-5.4); Red Cell Distribution Width 13.2 % (11.5-14.0); White Blood Count 17.9 K/mm3 (4.0-10.5)
[2018-02-20 19:01] LABS: ALBUMIN 3.7 g/dL (3.5-5.0); ALKALINE PHOSPHATASE 120 U/L (38-126); BILIRUBIN,TOTAL < 0.10 mg/dL (0.2-1.3); BLOOD UREA NITROGEN 4 mg/dL (7-17); CHLORIDE 107 mmol/L (98-107); Calcium 9.2 mg/dL (8.4-10.2); Carbon Dioxide 18 mmol/L (22-30); Creatinine 1 0.46 mg/dL (0.52-1.04); Glucose 142 mg/dL (74-106); Potassium 3.7 mmol/L (3.5-5.1); SGOT/AST 14 U/L (14-36); SODIUM 138 mmol/L (137-145); Total Protein 6.8 g/dL (6.3-8.2)
[2018-02-20 19:08] LABS: SGPT/ALT 17 U/L (0-35)
[2018-02-20] MEDS ORDERED: TYLENOL 325 MG PO ONE (19:45)
[2018-02-20] MEDS ORDERED: BENADRYL 25 MG CAPSULE PO ONE (19:45)
[2018-02-20] MEDS ORDERED: TYLENOL 325 MG ONE (19:48)
[2018-02-20] MEDS ORDERED: BENADRYL 25 MG CAPSULE ONE (19:49)
[2018-02-20 21:14] VITALS: BP 129/62; PULSE 86
[2018-02-20 21:24] LABS: BAND 4 % (0.0-2.0); Neutrophils 77 % (36.0-66.0); Total Cells Counted 100
[2018-02-20 21:25] LABS: Eosinophil 2 % (0.00-3.0); Lymphocytes 16 % (24-44); Monocyte 1 % (0.0-12.0); Platelet Estimate NORMAL (NORMAL)
== END 2018-02-20 21:37 | disposition home or self-care (01) ==
LOC: OB 15:33
PROVIDERS: ADMIT Family Medicine; ATTEND Family Medicine
DX: Z34.83 Encounter for supervision of other normal pregnancy, third trimester (principal)
CPT/HCPCS: 36415; 80053; 81000; 84550; 85025; G0378; 59025; A9270-GY

== ENCOUNTER 2018-03-13 11:56 | Observation (INO) | payer BC ==
[2018-03-13 14:11] VITALS: BP 117/65; PULSE 87
== END 2018-03-13 13:50 | disposition home or self-care (01) ==
LOC: OB 11:56
PROVIDERS: ADMIT Family Medicine; ATTEND Family Medicine
DX: Z34.03 Encounter for supervision of normal first pregnancy, third trimester (principal)
CPT/HCPCS: G0378

== ENCOUNTER 2018-03-17 12:42 | Observation (INO) | payer BC ==
[2018-03-17 13:21] VITALS: PULSE 85
--- NOTE | 2018-03-17 14:16 | XRAY ---
Indication: Decreased movement. Evaluate cervical length. 2-dimensional ultrasound performed. Comparison: February 06, 2018. Again there is a single viable intrauterine in cephalic presentation. heart rate 154 BPM. anatomy previously documented. Visualized stomach and bladder are unremarkable. Again posterior placenta without abruption/previa. Cervical length is 3.4 cm. BPD measures 8.09 cm corresponding to 32 weeks 3 days. HC measures 28.88 cm corresponding to 31 weeks 5 days. AC measures 29.55 cm corresponding to 33 weeks 4 days. FL measures 6.56 cm corresponding to 33 weeks 6 days. MIRNA is 15.3 cm. Impression: Again single viable intrauterine with mean gestational age 32 weeks 6 days. There has been progression of the with fetus now measuring 9 days larger compared to initial exam of October 03, 2017. No new/acute findings. Cervical length is 3.4 cm.
[2018-03-17 14:38] VITALS: BP 116/79
== END 2018-03-17 14:39 | disposition home or self-care (01) ==
LOC: OB 12:42
PROVIDERS: ADMIT Family Medicine; ATTEND Family Medicine
DX: Z34.03 Encounter for supervision of normal first pregnancy, third trimester (principal)
CPT/HCPCS: 36415; 76805; 87340; G0378; 59025

== ENCOUNTER 2018-03-27 09:09 | Observation (INO) | payer BC ==
[2018-03-27 09:53] VITALS: BP 118/65; PULSE 96; O2SAT 96
[2018-03-27] MEDS ORDERED: Lactated Ringers 1,000 ML IV ONE (10:24)
[2018-03-27 10:59] LABS: Appearance CLEAR (CLEAR); Bilirubin NEGATIVE (NEGATIVE); Glucose NEGATIVE (NEGATIVE); Ketones TRACE (NEGATIVE); Leukocyte Esterase TRACE (NEGATIVE); Nitrite NEGATIVE (NEGATIVE); Protein,Urine Dip TRACE (Negative); Urobilinogen NORMAL mg/dL (0-1)
[2018-03-27 11:00] LABS: Bacteria FEW /HPF (NEGATIVE); Epithelial Cells FEW /HPF (FEW); Mucus SLIGHT /HPF (NEGATIVE); RBC 0-2 /HPF (0-2); WBC 0-2 /HPF (0-5)
[2018-03-27 11:45] LABS: Hematocrit 35.9 % (35-47); Hemoglobin 12.5 gm/dl (12.0-16.0); Mean Cell Volume 87.6 fl (78-100); Mean Corpuscular Hemoglobin 30.5 pg (26-32); Mean Corpuscular Hgb Concent. 34.8 g/dl (32-36); Mean Platelet Volume 9.6 fl (6-9.5); Platelet Count 286 K/mm3 (150-450); Red Cell Distribution Width 13.7 % (11.5-14.0); White Blood Count 16.4 K/mm3 (4.0-10.5)
[2018-03-27 11:52] LABS: ALBUMIN 3.6 g/dL (3.5-5.0); ALKALINE PHOSPHATASE 148 U/L (38-126); ANION GAP 12.7 MEQ/L (5-15); BLOOD UREA NITROGEN 6 mg/dL (7-17); CHLORIDE 107 mmol/L (98-107); Calcium 9.4 mg/dL (8.4-10.2); Carbon Dioxide 22 mmol/L (22-30); Creatinine 1 0.44 mg/dL (0.52-1.04); Glucose 96 mg/dL (74-106); Potassium 3.9 mmol/L (3.5-5.1); SGOT/AST 14 U/L (14-36); SGPT/ALT 12 U/L (0-35); SODIUM 137 mmol/L (137-145); Total Protein 6.9 g/dL (6.3-8.2)
[2018-03-27 14:09] LABS: Eosinophil 1 % (0.00-3.0); Lymphocytes 11 % (24-44); Monocyte 2 % (0.0-12.0); Neutrophils 86 % (36.0-66.0); Total Cells Counted 100
[2018-03-27 14:10] LABS: Platelet Estimate NORMAL (NORMAL)
== END 2018-03-27 13:25 | disposition home or self-care (01) ==
LOC: OB 09:09
PROVIDERS: ADMIT Family Medicine; ATTEND Family Medicine
DX: Z34.03 Encounter for supervision of normal first pregnancy, third trimester (principal)
CPT/HCPCS: 36415; 80053; 81000; 83986; 85025; G0378

== ENCOUNTER 2018-04-03 08:13 | Observation (INO) | payer BC ==
--- NOTE | 2018-04-03 10:05 | XRAY ---
Indication: Evaluate MIRNA. Cramping. Limited OB ultrasound performed to evaluate MIRNA. heart rate is 139 BPM. Four-quadrant MIRNA is 14.7 cm, previously 15.3 cm on March 17, 2018.
[2018-04-03 10:39] VITALS: BP 115/71; PULSE 88
== END 2018-04-03 10:10 | disposition home or self-care (01) ==
LOC: OB 08:13
PROVIDERS: ADMIT Family Medicine; ATTEND Family Medicine
DX: Z34.02 Encounter for supervision of normal first pregnancy, second trimester (principal)
CPT/HCPCS: 76815; G0378; 59025

== ENCOUNTER 2018-04-07 10:48 | Observation (INO) | payer BC ==
[2018-04-07 11:20] LABS: Hematocrit 34.5 % (35-47); Hemoglobin 11.9 gm/dl (12.0-16.0); Mean Cell Volume 87.8 fl (78-100); Mean Corpuscular Hgb Concent. 34.5 g/dl (32-36); Mean Platelet Volume 9.2 fl (6-9.5); Platelet Count 285 K/mm3 (150-450); Red Blood Count 3.93 M/mm3 (4.1-5.4); Red Cell Distribution Width 13.5 % (11.5-14.0); White Blood Count 15.5 K/mm3 (4.0-10.5)
[2018-04-07 11:21] LABS: Mean Corpuscular Hemoglobin 30.2 pg (26-32)
[2018-04-07 11:41] LABS: BAND 9 % (0.0-2.0); Basophil 1 % (0.0-1.0); Eosinophil 2 % (0.00-3.0); Lymphocytes 8 % (24-44); Monocyte 5 % (0.0-12.0); Neutrophils 75 % (36.0-66.0); Total Cells Counted 100
[2018-04-07 11:42] LABS: ANISOCYTOSIS 2+; Platelet Estimate NORMAL (NORMAL); Polychromasia 1+
[2018-04-07 11:45] LABS: ALBUMIN 3.4 g/dL (3.5-5.0); ALKALINE PHOSPHATASE 175 U/L (38-126); ANION GAP 12.7 MEQ/L (5-15); BLOOD UREA NITROGEN 6 mg/dL (7-17); CHLORIDE 108 mmol/L (98-107); Calcium 9.1 mg/dL (8.4-10.2); Carbon Dioxide 21 mmol/L (22-30); Creatinine 1 0.47 mg/dL (0.52-1.04); Glucose 92 mg/dL (74-106); Potassium 4.1 mmol/L (3.5-5.1); SGOT/AST 12 U/L (14-36); SGPT/ALT 11 U/L (0-35); SODIUM 137 mmol/L (137-145); Total Protein 6.5 g/dL (6.3-8.2); Uric Acid 3.7 mg/dL (2.6-6.0)
[2018-04-07 14:27] VITALS: BP 118/68; PULSE 99
== END 2018-04-07 14:04 | disposition home or self-care (01) ==
LOC: MED SURG 10:48
PROVIDERS: ADMIT Family Medicine; ATTEND Family Medicine
DX: Z34.03 Encounter for supervision of normal first pregnancy, third trimester (principal)
CPT/HCPCS: 36415; 80053; 84550; 85025; 85060; 87040; G0378; 59025

== ENCOUNTER 2018-04-10 11:09 | Observation (INO) | payer BC ==
[2018-04-10 16:02] LABS: Hematocrit 35.1 % (35-47); Hemoglobin 12.2 gm/dl (12.0-16.0); Mean Cell Volume 88.9 fl (78-100); Mean Corpuscular Hgb Concent. 34.8 g/dl (32-36); Mean Platelet Volume 9.3 fl (6-9.5); Platelet Count 287 K/mm3 (150-450); Red Blood Count 3.95 M/mm3 (4.1-5.4); Red Cell Distribution Width 13.5 % (11.5-14.0); White Blood Count 16.2 K/mm3 (4.0-10.5)
[2018-04-10 16:13] LABS: Mean Corpuscular Hemoglobin 30.8 pg (26-32)
[2018-04-10 16:39] LABS: BAND 3 % (0.0-2.0); Eosinophil 1 % (0.00-3.0); Lymphocytes 13 % (24-44); Monocyte 7 % (0.0-12.0); Neutrophils 76 % (36.0-66.0); Platelet Estimate NORMAL (NORMAL); Total Cells Counted 100
[2018-04-10 17:40] VITALS: BP 108/57; PULSE 85
== END 2018-04-10 17:05 | disposition home or self-care (01) ==
LOC: OB 11:09
PROVIDERS: ADMIT Family Medicine; ATTEND Family Medicine
DX: Z34.03 Encounter for supervision of normal first pregnancy, third trimester (principal)
CPT/HCPCS: 36415; 85025; G0378

== ENCOUNTER 2018-04-13 10:36 | Observation (INO) | payer BC ==
[2018-04-13 11:01] LABS: Granulocyte Absolute (ANC) 12.45 (1.4-6.9); Hematocrit 36.3 % (35-47); Hemoglobin 12.5 gm/dl (12.0-16.0); Mean Cell Volume 88.3 fl (78-100); Mean Corpuscular Hemoglobin 30.4 pg (26-32); Mean Corpuscular Hgb Concent. 34.4 g/dl (32-36); Mean Platelet Volume 9.3 fl (6-9.5); Platelet Count 286 K/mm3 (150-450); Red Blood Count 4.11 M/mm3 (4.1-5.4); Red Cell Distribution Width 13.5 % (11.5-14.0)
[2018-04-13 11:10] LABS: ADD MANUAL DIFF? YES (NO)
[2018-04-13 11:26] LABS: ALBUMIN 3.7 g/dL (3.5-5.0); ALKALINE PHOSPHATASE 195 U/L (38-126); ANION GAP 14.2 MEQ/L (5-15); BLOOD UREA NITROGEN 7 mg/dL (7-17); CHLORIDE 106 mmol/L (98-107); Calcium 9.5 mg/dL (8.4-10.2); Carbon Dioxide 22 mmol/L (22-30); Creatinine 1 0.47 mg/dL (0.52-1.04); EST GLOMERULAR FILTRATION RATE > 60.0 ML/MIN; Glucose 104 mg/dL (74-106); Potassium 4.2 mmol/L (3.5-5.1); SGOT/AST 15 U/L (14-36); SGPT/ALT 13 U/L (0-35); SODIUM 138 mmol/L (137-145); Total Protein 6.9 g/dL (6.3-8.2)
[2018-04-13 11:47] LABS: Lymphocytes 10 % (24-44); Monocyte 4 % (0.0-12.0); Neutrophils 86 % (36.0-66.0); Platelet Estimate NORMAL (NORMAL); Total Cells Counted 100; Toxic Granulation 1+
== END 2018-04-13 12:15 | disposition home or self-care (01) ==
LOC: OB 10:36
CPT/HCPCS: 36415; 76815; 76818; 80053; 84550; 85025

== ENCOUNTER 2018-04-17 08:32 | Observation (INO) | payer BC ==
--- NOTE | 2018-04-17 09:40 | XRAY ---
Indication: Evaluate MIRNA. Limited OB ultrasound performed to evaluate MIRNA. There is a single intrauterine with heart rate 144 BPM. Four-quadrant MIRNA is 8.4 cm, previously 12.8 cm April 13, 2018.
[2018-04-17 09:50] VITALS: BP 108/62; PULSE 89
== END 2018-04-17 09:40 | disposition home or self-care (01) ==
LOC: OB 08:32
PROVIDERS: ADMIT Family Medicine; ATTEND Family Medicine
DX: Z34.03 Encounter for supervision of normal first pregnancy, third trimester (principal)
CPT/HCPCS: 76815; G0378; 59025

== ENCOUNTER 2018-04-20 10:12 | Observation (INO) | payer BC ==
[2018-04-20 11:01] LABS: Granulocyte Absolute (ANC) 16.39 (1.4-6.9); Hematocrit 35.7 % (35-47); Hemoglobin 12.6 gm/dl (12.0-16.0); Mean Cell Volume 87.7 fl (78-100); Mean Corpuscular Hgb Concent. 35.3 g/dl (32-36); Mean Platelet Volume 9.6 fl (6-9.5); Platelet Count 299 K/mm3 (150-450); Red Blood Count 4.07 M/mm3 (4.1-5.4); Red Cell Distribution Width 13.4 % (11.5-14.0); White Blood Count 20.8 K/mm3 (4.0-10.5)
--- NOTE | 2018-04-20 11:37 | XRAY ---
Indication: growth and MIRNA. 2-dimensional ultrasound performed. Comparison: March 17, 2018. Again there is a single viable intrauterine in cephalic presentation. heart rate 133 BPM. anatomy previously documented. Visualized stomach and bladder are unremarkable. Again posterior placenta without abruption/previa. BPD measures 8.86 cm corresponding to 35 weeks 6 days. HC measures 31.68 cm corresponding to 35 weeks 4 days. AC measures 31.10 cm corresponding to 35 weeks 0 days. FL measures 7.06 cm corresponding to 36 weeks 1 day. MIRNA is 7.1 cm. Impression: Again single viable intrauterine with mean gestational age 35 weeks 5 days. There has been progression of the . No new/acute findings.
[2018-04-20 12:39] LABS: Mean Corpuscular Hemoglobin 30.9 pg (26-32)
[2018-04-20 13:05] LABS: ALBUMIN 3.8 g/dL (3.5-5.0); ALKALINE PHOSPHATASE 213 U/L (38-126); ANION GAP 14.4 MEQ/L (5-15); BLOOD UREA NITROGEN 7 mg/dL (7-17); CHLORIDE 106 mmol/L (98-107); Calcium 9.2 mg/dL (8.4-10.2); Carbon Dioxide 20 mmol/L (22-30); Creatinine 1 0.56 mg/dL (0.52-1.04); Glucose 101 mg/dL (74-106); Potassium 3.9 mmol/L (3.5-5.1); SGOT/AST 19 U/L (14-36); SGPT/ALT 14 U/L (0-35); SODIUM 136 mmol/L (137-145)
[2018-04-20 14:17] LABS: BAND 3 % (0.0-2.0); Lymphocytes 11 % (24-44); Monocyte 3 % (0.0-12.0); Neutrophils 83 % (36.0-66.0); Total Cells Counted 100
[2018-04-20 14:18] LABS: Platelet Estimate NORMAL (NORMAL)
[2018-04-20 15:44] VITALS: BP 124/75; PULSE 93
== END 2018-04-20 15:25 | disposition home or self-care (01) ==
LOC: UNDOADMOB 10:12 → OB 10:12
PROVIDERS: ADMIT Family Medicine; ATTEND Family Medicine
DX: Z34.83 Encounter for supervision of other normal pregnancy, third trimester (principal)
CPT/HCPCS: 36415; 76805; 80053; 84550; 85025; G0378; 59025

== ENCOUNTER 2018-04-24 08:10 | Inpatient (IN) | payer BC ==
[2018-04-24] MEDS ORDERED: Cervidil 10 MG VAG SCH (20:00)
[2018-04-24] MEDS ORDERED: XYLOCAINE 1% HCL 20 ML MDV IJ PRN (20:24)
[2018-04-24] MEDS ORDERED: BRETHINE 1 MG/ML SQ PRN (20:24)
[2018-04-24 20:30] LABS: Granulocyte Absolute (ANC) 15.68 (1.4-6.9); Hematocrit 36.3 % (35-47); Hemoglobin 12.8 gm/dl (12.0-16.0); Mean Cell Volume 87.7 fl (78-100); Mean Corpuscular Hemoglobin 30.9 pg (26-32); Mean Corpuscular Hgb Concent. 35.3 g/dl (32-36); Mean Platelet Volume 9.7 fl (6-9.5); Platelet Count 335 K/mm3 (150-450); Red Blood Count 4.14 M/mm3 (4.1-5.4); Red Cell Distribution Width 13.4 % (11.5-14.0); White Blood Count 20.6 K/mm3 (4.0-10.5)
[2018-04-24 20:46] LABS: Barbiturate,Urine NEGATIVE (NEGATIVE); Benzodiazepine,Urine NEGATIVE (NEGATIVE); Cocaine,Urine NEGATIVE (NEGATIVE); Methadone,Urine NEGATIVE (NEGATIVE); Opiate,Urine NEGATIVE (NEGATIVE); PCP,Urine NEGATIVE (NEGATIVE); THC,Urine NEGATIVE (NEGATIVE)
[2018-04-24 21:01] LABS: Amphetamine,Urine NEGATIVE (NEGATIVE)
[2018-04-24 23:43] LABS: Lymphocytes 18 % (24-44); Monocyte 8 % (0.0-12.0); Neutrophils 74 % (36.0-66.0); Platelet Estimate NORMAL (NORMAL); Total Cells Counted 100
[2018-04-25] MEDS ORDERED: PITOCIN 30 UNITS/ LR 500 ML 500 ML IV SCH ×2 (08:00→09:00)
[2018-04-25] MEDS: Lactated Ringers 1,000 ML IV SCH ×2 (08:59→16:24)
[2018-04-25] MEDS ORDERED: ENGERIX-B 10 MCG FREE PEDIATRIC IM ONE (16:48)
[2018-04-25] MEDS ORDERED: Erythromycin 1 GM OP ONE (16:48)
[2018-04-25] MEDS ORDERED: XYLOCAINE 1% HCL 20 ML MDV IJ PRN (16:48)
[2018-04-25] MEDS ORDERED: Vitamin K 1 MG IM ONE (16:48)
[2018-04-25] MEDS ORDERED: Cervidil 10 MG VAG SCH (18:00)
[2018-04-25] MEDS ORDERED: TYLENOL 325 MG ONE (22:06)
[2018-04-25] MEDS: TYLENOL 325 MG PO PRN (22:08)
[2018-04-26] MEDS ORDERED: BRETHINE 1 MG/ML SQ PRN (07:00)
[2018-04-26] MEDS ORDERED: PITOCIN 30 UNITS/ LR 500 ML 500 ML IV SCH (07:00)
[2018-04-26] MEDS ORDERED: Ephedrine Sulfate 50 MG/ML IV PRN (09:22)
[2018-04-26] MEDS ORDERED: Lactated Ringers 1,000 ML IV ONE (09:22)
[2018-04-26] MEDS: OB EPIDURAL NAROPIN/SUFENTANIL IN NACL EPIDURAL PRN ×2 (09:42→18:38)
[2018-04-26] MEDS: Lactated Ringers 1,000 ML IV SCH ×2 (10:28→13:30)
[2018-04-26] MEDS: TYLENOL 325 MG PO PRN (20:40)
[2018-04-27] MEDS: Lactated Ringers 1,000 ML IV SCH ×2 (04:05→05:06)
[2018-04-27] MEDS: OB EPIDURAL NAROPIN/SUFENTANIL IN NACL EPIDURAL PRN (04:06)
[2018-04-27] MEDS ORDERED: CEFAZOLIN 2 GM-D5W BAG** 2 GM/50 ML ML IV SCH (04:30)
[2018-04-27] MEDS: TYLENOL 325 MG PO PRN (04:41)
[2018-04-27 05:34] LABS: Hematocrit 35.7 % (35-47); Hemoglobin 12.2 gm/dl (12.0-16.0); Mean Cell Volume 89.5 fl (78-100); Mean Corpuscular Hgb Concent. 34.2 g/dl (32-36); Mean Platelet Volume 9.5 fl (6-9.5); Platelet Count 287 K/mm3 (150-450); Red Blood Count 3.99 M/mm3 (4.1-5.4); Red Cell Distribution Width 13.5 % (11.5-14.0); White Blood Count 18.2 K/mm3 (4.0-10.5)
[2018-04-27 05:36] LABS: Mean Corpuscular Hemoglobin 30.5 pg (26-32)
[2018-04-27 05:48] LABS: INR 1.08 (0.8-3.0)
[2018-04-27 05:50] LABS: PTT 32.3 SECONDS (25.3-37.0)
[2018-04-27] MEDS ORDERED: Lactated Ringers 1,000 ML IV ONE (06:00)
[2018-04-27] MEDS ORDERED: BICITRA 30 ML CUP PO SCH (06:00)
[2018-04-27] MEDS ORDERED: Pepcid 20 MG VIAL IV SCH (06:00)
[2018-04-27] MEDS ORDERED: Reglan 10 MG/2 ML IV SCH (06:00)
[2018-04-27 06:11] LABS: ABO TYPING A; Antibody Screen NEGATIVE (NEGATIVE); RH TYPING POSITIVE
[2018-04-27] MEDS ORDERED: LANSINOH 40 GM TOP PRN (09:00)
[2018-04-27] MEDS ORDERED: BENADRYL 50 MG/ML IV PRN (09:00)
[2018-04-27] MEDS ORDERED: MORPHINE SULFATE 2 MG INJ IV PRN (09:00)
[2018-04-27] MEDS ORDERED: HOLD NARCOTIC ANALGESICS AND SEDATIVES X24 HR MC PRN (09:00)
[2018-04-27] MEDS ORDERED: Anucort-HC SUPPOSITORY PR PRN (09:00)
[2018-04-27] MEDS ORDERED: Dulcolax 10 MG SUPP PR PRN (09:00)
[2018-04-27] MEDS ORDERED: Nubain 10 MG/ML IV PRN (09:00)
[2018-04-27] MEDS ORDERED: Narcan 0.4 MG/ML IV PRN (09:00)
[2018-04-27] MEDS ORDERED: DEMEROL 50 MG IV PRN (09:00)
[2018-04-27] MEDS ORDERED: CLARITIN 10 MG PO PRN (09:00)
[2018-04-27] MEDS ORDERED: Dermoplast Spray TP PRN (09:00)
[2018-04-27] MEDS ORDERED: TYLENOL EXTRA STRENGTH 500 MG PO PRN (09:00)
[2018-04-27] MEDS ORDERED: Zofran 4 MG/2 ML VIAL IV PRN (09:00)
[2018-04-27] MEDS ORDERED: CORTISONE 1% CREAM TP PRN (09:00)
--- NOTE | 2018-04-27 09:30 | OP ---
SURGERY DATE/TIME: 04/27/2018 0710 PREOPERATIVE DIAGNOSES: 1) Preeclampsia. 2) Failed induction of labor. POSTOPERATIVE DIAGNOSES: 1) Preeclampsia. 2) Failed induction of labor. PROCEDURE: Primary section. SURGEON: Isak Gabriel M.D. NUCLEAR ENGINEERING TECHNICIAN: Tanja Alexander M.D. ANESTHESIA: Epidural by Paco Landers CRNA. ESTIMATED BLOOD LOSS: 400 cc. IV FLUIDS: 1500 cc of Crystalloid. URINE OUTPUT: 200 cc clear straw-colored urine. SPECIMEN: Placenta was sent for pathology. DESCRIPTION OF PROCEDURE: After informed, written consent was obtained the patient was taken to the OR. She had a previously placed laboring epidural dosed for surgery and then was prepped and draped in usual sterile fashion. After adequate level of anesthesia was assessed, a low transverse skin incision was made by knife and carried down through the subcutaneous fat to the level of the fascia. The fascia was nicked on both sides of the midline and extended in horizontal fashion using curved Stein scissors. The superior free edge of the fascia was grasped with Bandar clamps and the underlying rectus muscles were dissected free. The same was repeated inferiorly. The peritoneal cavity was opened and bladder flap was created and reflected over the lower uterine segment. Horizontal uterine incision was made by knife and carried down to the level of the amniotic membranes which were carefully artificially ruptured. A viable female infant with a strong cry immediately upon delivery was delivered from the vertex presentation. The cord clamped and cut. Dr. Alexander robed/scrubbed to attend to the baby after the oropharynx and nares were bulb suctioned free of fluid. Next, the uterus was exteriorized and the placenta manually removed. The uterine cavity was then sponge curetted clean with lap sponge. Next, the uterine incision was closed with #1 chromic in a running locked fashion. Good closure and good hemostasis were achieved. Posterior cul-de-sac was wiped free of blood and clot with moist lap sponge and the uterus was returned to the peritoneal cavity. The lateral gutters were wiped free of blood and clot with moist lap sponges. Again the uterine incision was inspected and noted to be hemostatic with good closure. Next, the fascia was closed with 0 Vicryl in a running fashion. Good closure and good hemostasis were achieved. The subcutaneous fat was irrigated with warm, sterile saline and any areas of bleeding were cauterized with electrocautery. Finally the skin layer was closed with 4-0 undyed Vicryl in a running subcuticular fashion. Steri-Strips and occlusive dressing were placed over the incision and the patient was transferred to the recovery room in good condition.
[2018-04-27] MEDS ORDERED: Decadron 4 MG INJ IV ONE (10:26)
[2018-04-27] MEDS ORDERED: XYLOCAINE 2%/Epi 1:200000 20ML VIAL MPF IJ ONE (10:26)
[2018-04-27] MEDS ORDERED: Zofran 4 MG/2 ML VIAL IV ONE (10:26)
[2018-04-27] MEDS ORDERED: Astramorph-Pf 5 MG/10 ML IV ONE (10:26)
[2018-04-27] MEDS ORDERED: Pitocin 10 UNITS/ML IV ONE (10:26)
[2018-04-27] MEDS ORDERED: TORAdol 30 mg Injection IJ ONE (10:26)
[2018-04-27] MEDS ORDERED: Naropin 0.5% 30 ML VIAL IJ ONE (10:26)
[2018-04-27] MEDS ORDERED: LIDOCAINE HCL 2% 100 MG/5 ML IJ ONE (10:26)
[2018-04-27] MEDS ORDERED: Nesacaine 3% -Mpf*** 20ML SDV IJ ONE (10:26)
[2018-04-27] MEDS: Dextrose 5%-Lr IV Solution 1000 ML 1,000 ML IV SCH ×2 (12:13→19:52)
[2018-04-27] MEDS: PERCOCET TABLET 5/325MG PO PRN ×3 (13:28→21:40)
[2018-04-27] MEDS: MOTRIN 400 MG PO PRN (20:54)
[2018-04-27] MEDS: Colace 100 MG PO SCH ×2 (21:39→21:40)
[2018-04-28] MEDS: PERCOCET TABLET 5/325MG PO PRN ×2 (01:49→05:51)
[2018-04-28] MEDS: MOTRIN 400 MG PO PRN ×2 (02:54→16:08)
[2018-04-28] MEDS: Mylicon 80MG PO PRN (02:59)
[2018-04-28 05:46] LABS: Granulocyte Absolute (ANC) 14.56 (1.4-6.9); Hematocrit 31.6 % (35-47); Hemoglobin 10.5 gm/dl (12.0-16.0); Mean Cell Volume 91.1 fl (78-100); Mean Corpuscular Hgb Concent. 33.2 g/dl (32-36); Mean Platelet Volume 9.6 fl (6-9.5); Platelet Count 300 K/mm3 (150-450); Red Blood Count 3.47 M/mm3 (4.1-5.4); Red Cell Distribution Width 13.4 % (11.5-14.0); White Blood Count 19.6 K/mm3 (4.0-10.5)
[2018-04-28 06:11] LABS: Mean Corpuscular Hemoglobin 30.2 pg (26-32)
[2018-04-28 07:27] LABS: BAND 8 % (0.0-2.0); Lymphocytes 13 % (24-44); Monocyte 5 % (0.0-12.0); Neutrophils 74 % (36.0-66.0); Total Cells Counted 100
[2018-04-28 07:29] LABS: Platelet Estimate NORMAL (NORMAL)
[2018-04-28] MEDS ORDERED: NORCO 5/325 MG PO PRN (09:00)
[2018-04-28] MEDS ORDERED: Phenergan 25 MG INJ IM PRN (09:00)
[2018-04-28] MEDS ORDERED: DEMEROL 75 MG IM PRN (09:00)
[2018-04-28] MEDS: FERREX 150 PO SCH (10:05)
[2018-04-28] MEDS: Colace 100 MG PO SCH ×2 (10:05→21:03)
[2018-04-28] MEDS: NORCO 5/325 MG PO PRN ×4 (10:05→22:44)
[2018-04-28] MEDS ORDERED: Ambien 10 MG PO PRN (20:58)
[2018-04-29] MEDS: Mylicon 80MG PO PRN (02:59)
[2018-04-29 03:43] VITALS: O2SAT 100
[2018-04-29] MEDS: NORCO 5/325 MG PO PRN ×2 (04:38→11:31)
[2018-04-29 08:46] VITALS: BP 120/55; PULSE 105
[2018-04-29] MEDS: Colace 100 MG PO SCH (09:53)
[2018-04-29] MEDS: FERREX 150 PO SCH (09:53)
--- NOTE | 2018-04-29 12:00 | PCM.DS ---
Discharge Summary Date of Admission: 04/26/18 09:14 Admitting Physician: MONET GOODWIN Consults: Consults on Case 04/27/18 06:00 Notify Anesthesia Provider ROUTINE Notify Physician OF ADMISSION Primary Care Provider: MONET GOODWIN Allergies Allergies miconazole [From Monistat 7] Allergy (Verified 04/13/18 10:56) Hospital Summary - Hospital Course Hospital Course: Pt was admitted as 28 yo at 37 wks with pre-eclampsia and leukocytosis for induction of labor. She was given cervadil overnight with pitocin, which failed , then repeated cervadil and pitocin. FHT reassuring throughout. No cervical dilation over 1 cm so had primary . Baby weight 7lb 5oz and had no respiratory issues. well. She is up out of bed without dizziness. Bleeding like menses. Still having LE edema. no c/o RODRIGUEZ or visual changes. - Vitals & Intake/Output Vital Signs: Vital Signs Temperature 97.9 F 04/29/18 02:00 Pulse Rate 105 H 04/29/18 08:00 Respiratory Rate 22 04/29/18 08:00 Blood Pressure 120/55 04/29/18 08:00 O2 Sat by Pulse Oximetry 100 04/29/18 02:00 Intake & Output: Intake & Output 04/26/18 04/27/18 04/28/18 04/29/18 11:59 11:59 11:59 11:59 Intake Total 2800 54114 2932 360 Output Total 2700 6800 3750 Balance 100 6086 -818 360 Weight 120.202 kg - Lab Result Diagrams: 04/28/18 05:20 Micro Results-Entire Visit: Microbiology 04/26/18 13:00 Urine Culture - Final Urine, Indwelling Catheter NO GROWTH - Procedures and Test Procedures and Tests throughout Hospitalization: Therapy Orders & Screens 04/27/18 13:32 Standby STAT Comment: Diagnosis: Induction of Labor Discharge Exam General Appearance: no apparent distress, alert, obese Neurologic Exam: oriented x 3, cooperative Skin Exam: normal color, warm, dry, No rash Neck Exam: normal inspection Respiratory Exam: normal breath sounds, lungs clear, No crackles/rales, No rhonchi, No wheezing Cardiovascular Exam: regular rate/rhythm, normal heart sounds, No murmur Gastrointestinal/Abdomen Exam: soft, other (fundus firm under umbilicus. wound c/d/i. purple discoloration of skin just proximal to wound.), No tenderness Extremity Exam: pedal edema (1+ pretibial edema bilat) Final Diagnosis/Problem List - Final Discharge Diagnosis/Problem (1) delivery delivered Current Visit: Yes Status: Acute Assessment & Plan: Doing well, POD #2 today. home today. (2) Pre-eclampsia Current Visit: Yes Status: Acute Assessment & Plan: Her BP have been great. Advised continue watching them, watch for sx including RODRIGUEZ, visual changes, or RUQ pain or generally feeling unwell. (3) Leukocytosis Current Visit: Yes Status: Acute Assessment & Plan: recheck in1 wk. Per hematology likely related to the preeclampsia. - Discharge Disposition: Home, Self-Care Condition: Good Prescriptions: New Docusate Sodium 100 mg [Colace 100 MG] 100 mg PO BID PRN #60 capsule PRN Reason: Constipation Ferrous Sulfate 325 mg [Feosol 325 mg] 325 mg PO DAILY #30 tablet Ibuprofen 800 mg PO TID PRN #35 tablet PRN Reason: Pain Hydrocodone Bit/Acetaminophen [Pritchett 5-325 Tablet] 1 each PO Q4H PRN #30 tablet MDD 6 PRN Reason: Severe Pain Continue Vits W-Ca,Fe,FA(<1Mg) [] 1 each PO DAILY Polyethylene Glycol 3350 17 gm [Miralax Powder 17GM PACKET] 17 gm PO DAILY Melatonin/Pyridoxine HCl (B6) [Melatonin 10 mg Tablet] 1 each PO HS Hydroxyzine HCl 25 mg [Atarax 25 mg] 25 mg PO DAILY Ranitidine HCl [Zantac 75] 75 mg PO DAILY PRN PRN PRN Reason: heartburn Diphenhydramine HCl [Benadryl Allergy] 25 mg PO HS Aspirin [Aspirin EC] 81 mg PO DAILY Follow up with: MONET GOODWIN [Primary Care Provider] - 1 Week
== END 2018-04-29 12:25 | disposition home or self-care (01) | DRG 766 ==
LOC: OB 09:14 → OBSVTOIN 04-26 09:14
PROVIDERS: ADMIT Family Medicine; ATTEND Family Medicine
PROC: 10D00Z1 Extraction of Products of Conception, Low, Open Approach (ICD-10-PCS; principal; 2018-04-27)
DX: O14.93 Unspecified pre-eclampsia, third trimester (principal); O61.0 Failed medical induction of labor; Z3A.37 37 weeks gestation of pregnancy; Z37.0 Single live birth
CPT/HCPCS: 36415; 64488; 76937; 76942; 80307; 85025; 85027; 85610; 85730; 86850; 86900; 86901; 87086; 88307; 94799; G0378; J0690; J1100; J1885; J2274; J2405; J2590; J2795; L0625; A9270-GY

== ENCOUNTER 2018-04-30 13:08 | Emergency (ER) | payer BC ==
--- NOTE | 2018-04-30 13:52 | ERPHSYRPT ---
- History of Present Illness Time Seen by Provider: 04/30/18 13:32 Source: patient, family Exam Limitations: no limitations Patient Subjective Stated Complaint: pt reports swelling to the feet and lower legs since being discharged from this facility approx 24 hours ago. pt delivered via c section 2 days ago after being hospitalized last tuesday due to pre-eclampsia. pt reports slight pain to the feet and legs. Triage Nursing Assessment: pt is aox3, pupils perrl, afebrile, resps easy and non labored, radial pulses strong and equal, skin pink warm dry. 1+ pitting edema noted to the bilat lower extremities. pedal pulses present bilat. pt is able to ambulate with no difficulties. pt is . Physician History: The patient is a 28-year-old female with her who just delivered her first child via on . She was in the hospital and discharged yesterday. She returns to the hospital today because her feet and lower legs are swollen more than they were when she left. She had been in the hospital prior to the because she was preeclamptic. She had swelling of her feet and protein in her urine. However her blood pressure remained normal. She is breast-feeding and is up every hour to breast-feed. She is just worried that she has an increase in swelling since being discharged from the hospital. She denies shortness of breath. Method of Injury: unknown Occurred: this morning Quality: constant Severity of Pain-Max: none Severity of Pain-Current: none Modifying Factors: Improves With: nothing Associated Symptoms: other (swelling) Allergies/Adverse Reactions: miconazole [From Monistat 7] Allergy (Verified 04/13/18 10:56) Home Medications: Vits W-Ca,Fe,FA(<1Mg) [] 1 each PO DAILY 10/09/16 [History] Hydroxyzine HCl 25 mg [Atarax 25 mg] 25 mg PO DAILY 11/22/17 [History] Melatonin/Pyridoxine HCl (B6) [Melatonin 10 mg Tablet] 1 each PO HS 11/22/17 [ History] Polyethylene Glycol 3350 17 gm [Miralax Powder 17GM PACKET] 17 gm PO DAILY [History] Diphenhydramine HCl [Benadryl Allergy] 25 mg PO HS 03/17/18 [History] Ranitidine HCl [Zantac 75] 75 mg PO DAILY PRN PRN 03/17/18 [History] Aspirin [Aspirin EC] 81 mg PO DAILY 04/20/18 [History] Hx Tetanus, Diphtheria Vaccination/Date Given: Yes Hx Influenza Vaccination/Date Given: No Hx Pneumococcal Vaccination/Date Given: No Immunizations Up to Date: Yes - Review of Systems Constitutional: No Fever, No Chills Eyes: No Symptoms Ears, Nose, & Throat: No Symptoms Respiratory: No Cough, No Dyspnea Cardiac: Edema, No Chest Pain, No Syncope Abdominal/Gastrointestinal: No Abdominal Pain, No Nausea, No Vomiting, No Diarrhea Genitourinary Symptoms: No Dysuria Musculoskeletal: No Back Pain, No Neck Pain Skin: No Rash Neurological: No Dizziness, No Focal Weakness, No Sensory Changes Psychological: No Symptoms Endocrine: No Symptoms Hematologic/Lymphatic: No Symptoms Immunological/Allergic: No Symptoms All Other Systems: Reviewed and Negative - Past Medical History Pertinent Past Medical History: Yes Neurological History: No Pertinent History ENT History: No Pertinent History Cardiac History: Hypertension Respiratory History: Asthma Endocrine Medical History: No Pertinent History Musculoskeletal History: Other GI Medical History: GI Bleed, Hepatitis, Polyps, Other History: No Pertinent History Psycho-Social History: Anxiety, Depression Female Reproductive Disorders: No Pertinent History Other Medical History: CONSTIPATION - Past Surgical History Past Surgical History: Yes Neuro Surgical History: No Pertinent History Cardiac: No Pertinent History Respiratory: No Pertinent History Gastrointestinal: No Pertinent History Genitourinary: No Pertinent History Musculoskeletal: No Pertinent History Female Surgical History: Other Other Surgical History: excision of back cyst - Aug 2015, laporascopy - Social History Smoking Status: Never smoker Exposure to second hand smoke: No Drug Use: none Patient Lives Alone: No - Female History Hx Last Menstrual Period: 08/14/17 Hx Now: No - Nursing Vital Signs Nursing Vital Signs: Initial Vital Signs Temperature 98.6 F 04/30/18 13:13 Pulse Rate 103 H 04/30/18 13:13 Respiratory Rate 04/30/18 13:13 Blood Pressure 135/84 04/30/18 13:13 O2 Sat by Pulse Oximetry 100 04/30/18 13:13 Pain Scale Pain Intensity 0 - Physical Exam General Appearance: alert Eyes, Ears, Nose, Throat Exam: moist mucous membranes Neck Exam: non-tender, supple Cardiovascular/Respiratory Exam: chest non-tender, normal breath sounds, regular rate/rhythm, no respiratory distress Gastrointestinal/Abdominal Exam: non-tender, guarding Back Exam: normal inspection, No vertebral tenderness Hips Exam: bilateral: non-tender, normal inspection Legs Exam: bilateral leg: non-tender, swelling (3+ lower legs) Knees Exam: bilateral knee: non-tender Ankle Exam: bilateral ankle: non-tender, swelling (3+) Foot Exam: bilateral foot: non-tender, swelling (2+) Neuro/Tendon Exam: normal sensation, normal motor functions Mental Status Exam: alert, oriented x 3, cooperative Skin Exam: normal color, warm, dry SpO2 Interpretation: normal SpO2: 100 Oxygen Delivery: Room Air - Radiology Exams Chest X-ray Interpretation: Interpreted by me, Negative Ordered Tests: Active Orders 24 hr Category Date Time Status CHEST 2 VIEWS (PA AND LAT) Stat Exams 04/30/18 14:29 Taken BMP/HFII Stat Lab 04/30/18 14:19 Completed CBC W DIFF Stat Lab 04/30/18 14:19 Completed CULTURE,URINE Stat Lab 04/30/18 14:15 Received NT PRO BNP Stat Lab 04/30/18 14:19 Completed UA W/ MICROSCOPIC Stat Lab 04/30/18 14:15 Completed Lab/Rad Data: Laboratory Result Diagrams 04/30/18 14:19 04/30/18 14:19 Laboratory Results 04/30/18 04/30/18 04/30/18 Range/Units 14:19 14:19 14:15 WBC 10.5 (4.0-10.5) K/mm3 RBC 3.26 L (4.1-5.4) M/mm3 Hgb 10.0 L (12.0-16.0) gm/dl Hct 29.9 L (35-47) % MCV 91.7 (78-100) fl MCH 30.6 (26-32) pg MCHC 33.4 (32-36) g/dl RDW 13.5 (11.5-14.0) % Plt Count 332 (150-450) K/mm3 MPV 9.0 (6-9.5) fl Gran % 66.1 H (36.0-66.0) % Eos # (Auto) 0.48 (0-0.5) Absolute Lymphs (auto) 2.07 (1.0-4.6) Absolute Monos (auto) 0.97 (0.0-1.3) Lymphocytes % 19.8 L (24.0-44.0) % Monocytes % 9.3 (0.0-12.0) % Eosinophils % 4.6 (0.00-5.0) % Basophils % 0.2 (0.0-0.4) % Absolute Granulocytes 6.94 H (1.4-6.9) Basophils # 0.02 (0-0.4) Sodium 140 (137-145) mmol/L Potassium 3.9 (3.5-5.1) mmol/L Chloride 104 (98-107) mmol/L Carbon Dioxide 30 (22-30) mmol/L Anion Gap 10.4 (5-15) MEQ/L BUN 8 (7-17) mg/dL Creatinine 0.56 (0.52-1.04) mg/dL Estimated GFR > 60.0 ML/MIN Glucose 90 (74-106) mg/dL Calcium 9.6 (8.4-10.2) mg/dL Total Bilirubin 0.40 (0.2-1.3) mg/dL Direct Bilirubin 0.2 (0.0-0.4) mg/dL AST 45 H (14-36) U/L ALT 35 (0-35) U/L Alkaline Phosphatase 146 H (38-126) U/L NT-Pro-B Natriuret Pep 192 (0-450) pg/mL Serum Total Protein 6.5 (6.3-8.2) g/dL Albumin 3.4 L (3.5-5.0) g/dL Ur Collection Type CCMS Urine Color YELLOW (YELLOW) Urine Appearance HAZY (CLEAR) Urine pH 7.0 (5-6) Ur Specific [place] 1.015 (1.005-1.025) Urine Protein NEGATIVE (Negative) Urine Ketones NEGATIVE (NEGATIVE) Urine Blood 250 (0-5) Mychal/ul Urine Nitrite NEGATIVE (NEGATIVE) Urine Bilirubin NEGATIVE (NEGATIVE) Urine Urobilinogen NORMAL (0-1) mg/dL Ur Leukocyte Esterase 1+ (NEGATIVE) Urine Microscopic RBC 50-100 (0-2) /HPF Urine Microscopic WBC 5-10 (0-5) /HPF Ur Epithelial Cells FEW (FEW) /HPF Urine Bacteria FEW (NEGATIVE) /HPF Urine Culture Reflexed YES (NO) Urine Glucose NEGATIVE (NEGATIVE) mg/dL - Progress Progress: unchanged Discussed with : Catherine Counseled pt/family regarding: lab results, diagnosis - Departure Time of Disposition: 16:10 Departure Disposition: Home Clinical Impression: Edema, UTI (urinary tract infection) Condition: Stable Critical Care Time: No Referrals: MONET ALEXANDER [Primary Care Provider] - Additional Instructions: You have swelling of her lower extremities that will get better over the next few days. Stay well hydrated. Elevate your feet and legs as often as possible. You also have a UTI. Take Keflex 500 mg 4 times a day for 7 days. I spoke with Dr. Alexander who wants to see you on Tuesday at 845.
[2018-04-30 14:22] LABS: BASOPHIL % 0.2 % (0.0-0.4); Basophil (Absolute #) 0.02 (0-0.4); Eosinophil % 4.6 % (0.00-5.0); Eosinophil (Absolute #) 0.48 (0-0.5); Granulocyte Absolute (ANC) 6.94 (1.4-6.9); Granulocytes % 66.1 % (36.0-66.0); Hematocrit 29.9 % (35-47); Lymphocyte (Absolute #) 2.07 (1.0-4.6); Lymphocytes % 19.8 % (24.0-44.0); Mean Cell Volume 91.7 fl (78-100); Mean Corpuscular Hgb Concent. 33.4 g/dl (32-36); Monocyte (Absolute #) 0.97 (0.0-1.3); Monocytes % 9.3 % (0.0-12.0); Platelet Count 332 K/mm3 (150-450); Red Blood Count 3.26 M/mm3 (4.1-5.4); Red Cell Distribution Width 13.5 % (11.5-14.0); White Blood Count 10.5 K/mm3 (4.0-10.5)
[2018-04-30 14:24] LABS: Mean Corpuscular Hemoglobin 30.6 pg (26-32)
[2018-04-30 14:32] LABS: Appearance HAZY (CLEAR); Bilirubin NEGATIVE (NEGATIVE); Blood 250 Ery/ul (0-5); Glucose NEGATIVE (NEGATIVE); Ketones NEGATIVE (NEGATIVE); Leukocyte Esterase 1+ (NEGATIVE); Nitrite NEGATIVE (NEGATIVE); Protein,Urine Dip NEGATIVE (Negative); Specific Gravity 1.015 (1.005-1.025); Urobilinogen NORMAL mg/dL (0-1)
[2018-04-30 14:35] LABS: Bacteria FEW /HPF (NEGATIVE); Epithelial Cells FEW /HPF (FEW); RBC 50-100 /HPF (0-2)
[2018-04-30 14:48] LABS: ANION GAP 10.4 MEQ/L (5-15); BLOOD UREA NITROGEN 8 mg/dL (7-17); CHLORIDE 104 mmol/L (98-107); Calcium 9.6 mg/dL (8.4-10.2); Carbon Dioxide 30 mmol/L (22-30); Creatinine 1 0.56 mg/dL (0.52-1.04); Glucose 90 mg/dL (74-106); NT PRO BNP 192 pg/mL (0-450); Potassium 3.9 mmol/L (3.5-5.1); SODIUM 140 mmol/L (137-145)
[2018-04-30 14:49] VITALS: BP 127/80; PULSE 89
[2018-04-30 15:32] VITALS: O2SAT 100
[2018-04-30 15:41] LABS: ALBUMIN 3.4 g/dL (3.5-5.0); ALKALINE PHOSPHATASE 146 U/L (38-126); Direct Bilirubin 0.2 mg/dL (0.0-0.4); SGOT/AST 45 U/L (14-36); SGPT/ALT 35 U/L (0-35); Total Protein 6.5 g/dL (6.3-8.2)
--- NOTE | 2018-04-30 20:21 | XRAY ---
Indication: Bilateral leg swelling. Status post . Comparison: February 13, 2017. PA/lateral chest again demonstrates normal heart, lungs, and bony thorax.
== END 2018-04-30 16:20 | disposition home or self-care (01) ==
LOC: ED 13:08
DX: O12.05 Gestational edema, complicating the puerperium (principal); O86.20 Urinary tract infection following delivery, unspecified
CPT/HCPCS: 36415; 71046; 80048; 80076; 81001; 83880; 85025; 87077; 87086; 87186; 99283

== ENCOUNTER 2018-07-24 12:48 | Emergency (ER) | payer BC ==
--- NOTE | 2018-07-24 14:16 | ERPHSYRPT ---
- History of Present Illness Time Seen by Provider: 07/24/18 13:53 Source: patient Exam Limitations: no limitations Patient Subjective Stated Complaint: pt states she feels like her chest is tight and hurts pt states it feels different than when she has an asthma attack. Pt states she started a new antibiotic 07/19/18 for an in grown toe nail on third toe from the small toe on bilateral feet. Pt reports hives on her face 07/23/18 pt states it is hard to swallow today. no cardiac hx. Triage Nursing Assessment: pt started cephalexin 500mg TID 07/19/18. pt has chest pain and difficulty swallowing. No tenderness with neck palpation or redness. No rash or difficulty breathing at this time. No cardiac hx. pt's father and grandfather have HTN and CHF. Physician History: +This is a 28-year-old white female with history of high blood pressure, GI bleed, polyps, anxiety, depression, constipation Patient arrives with complaint of tightness in her chest this morning as if she was having a hard time breathing According to the patient she was placed on Keflex Tuesday 2 days ago the following day she began to experience hives and this morning she woke up with tightness in her chest and shortness of breath. She denies any chest pain other than tightness in her chest with breathing she states she just doesn't feel well she has no nausea no vomiting. Past medical history includes high blood pressure, asthma, GI bleed, polyps, anxiety, depression, constipation Past surgical history includes , excision of a cyst on her back, Timing/Duration: day(s) (2 days) Severity: moderate Modifying Factors: Improves With: medication (started keflex 2 days ago) Associated Symptoms: shortness of breath, other (tight in chest with breathing) , No nausea, No vomiting, No abdominal pain, No heartburn, No diaphoresis, No cough, No chills, No chest pain, No fever, No headaches, No loss of appetite, No malaise, No rash, No syncope, No seizure, No weakness Allergies/Adverse Reactions: miconazole [From Monistat 7] Allergy (Mild, Verified 07/24/18 13:17) itching Home Medications: Cephalexin Mh 500 mg [Keflex 500 mg] 500 mg PO TID 07/24/18 [History] Hydroxyzine HCl 25 mg [Atarax 25 mg] 25 mg PO TIDPRN 07/24/18 [History] Norgestimate-Ethinyl Estradiol [Tri-Sprintec] 1 cap PO DAILY 07/24/18 [History] Ranitidine HCl [Zantac] 150 mg PO DAILY 07/24/18 [History] Hx Tetanus, Diphtheria Vaccination/Date Given: Yes Hx Influenza Vaccination/Date Given: Yes Hx Pneumococcal Vaccination/Date Given: No Immunizations Up to Date: Yes - Review of Systems Constitutional: No Fever, No Chills Eyes: No Symptoms Ears, Nose, & Throat: No Symptoms Respiratory: Dyspnea, Other (tightness in chest with breathing), No Cough Cardiac: Other (tightness in chest with breathing), No Chest Pain, No Edema, No Palpitations, No Syncope, No Orthopnea Abdominal/Gastrointestinal: No Abdominal Pain, No Nausea, No Vomiting, No Diarrhea Genitourinary Symptoms: No Dysuria Musculoskeletal: No Back Pain, No Neck Pain Skin: Rash (hives yesterday) Neurological: No Dizziness, No Focal Weakness, No Sensory Changes Psychological: No Symptoms Endocrine: No Symptoms All Other Systems: Reviewed and Negative - Past Medical History Pertinent Past Medical History: Yes Neurological History: No Pertinent History ENT History: No Pertinent History Cardiac History: Hypertension Respiratory History: Asthma Endocrine Medical History: No Pertinent History Musculoskeletal History: Other GI Medical History: GI Bleed, Polyps, Other History: No Pertinent History Psycho-Social History: Anxiety, Depression Female Reproductive Disorders: No Pertinent History Other Medical History: CONSTIPATION - Past Surgical History Past Surgical History: Yes Neuro Surgical History: No Pertinent History Cardiac: No Pertinent History Respiratory: No Pertinent History Gastrointestinal: No Pertinent History Genitourinary: No Pertinent History Musculoskeletal: No Pertinent History Female Surgical History: Section, Other Other Surgical History: excision of back cyst - Aug 2015, laporascopy apr 27 2018 - Social History Smoking Status: Never smoker Exposure to second hand smoke: Yes Drug Use: none Patient Lives Alone: No - Female History Hx Last Menstrual Period: end of jun. Hx Now: No - Nursing Vital Signs Nursing Vital Signs: Initial Vital Signs Temperature 98.0 F 07/24/18 12:49 Pulse Rate 95 H 07/24/18 12:49 Respiratory Rate 16 07/24/18 12:49 Blood Pressure 123/95 07/24/18 12:49 Pain Scale Pain Intensity 5 - Physical Exam General Appearance: no apparent distress, alert Eye Exam: PERRL/EOMI, eyes nml inspection Ears, Nose, Throat Exam: normal ENT inspection, TMs normal, pharynx normal, moist mucous membranes Neck Exam: normal inspection, non-tender, supple, full range of motion Respiratory Exam: normal breath sounds, lungs clear, airway intact, No respiratory distress Cardiovascular Exam: regular rate/rhythm, normal heart sounds, normal peripheral pulses, capillary refill <2 sec, No murmur Gastrointestinal/Abdomen Exam: soft, normal bowel sounds, No tenderness, No mass Back Exam: normal inspection, normal range of motion, No CVA tenderness, No vertebral tenderness Extremity Exam: normal inspection, normal range of motion, pelvis stable Neurologic Exam: alert, oriented x 3, cooperative, pan puller II-XII nml as tested, normal mood/affect, nml cerebellar function, nml station & gait, sensation nml, No motor deficits Skin Exam: normal color, warm, dry, No rash Lymphatic Exam: No adenopathy SpO2 Interpretation: normal (95%) - Course Nursing assessment & vital signs reviewed: Yes EKG Interpreted by Me: RATE (76 bpm), Sinus Rhythm, NORMAL AXIS, Other (EKG, sinus rhythm, 76 bpm, normal axis, no acute ST or T wave changes) Ordered Tests: Active Orders 24 hr Category Date Time Status EKG-ER Only STAT Care 07/24/18 14:07 Active IV Insertion STAT Care 07/24/18 14:07 Active CBC W DIFF Stat Lab 07/24/18 14:20 Completed CMP Stat Lab 07/24/18 14:20 Completed TROPONIN Q3H Lab 07/24/18 14:20 Completed TROPONIN Q3H Lab 07/24/18 17:16 Received TROPONIN Q3H Lab 07/24/18 20:15 Ordered TROPONIN Q3H Lab 07/24/18 23:15 Ordered Lab/Rad Data: Laboratory Result Diagrams 07/24/18 14:20 07/24/18 14:20 Laboratory Results 07/24/18 07/24/18 07/24/18 Range/Units 14:20 14:20 14:20 WBC 6.7 (4.0-10.5) K/mm3 RBC 4.85 (4.1-5.4) M/mm3 Hgb 13.8 (12.0-16.0) gm/dl Hct 41.3 (35-47) % MCV 85.2 (78-100) fl MCH 28.5 (26-32) pg MCHC 33.4 (32-36) g/dl RDW 12.7 (11.5-14.0) % Plt Count 332 (150-450) K/mm3 MPV 10.2 H (6-9.5) fl Gran % 58.8 (36.0-66.0) % Eos # (Auto) 0.11 (0-0.5) Absolute Lymphs (auto) 2.01 (1.0-4.6) Absolute Monos (auto) 0.62 (0.0-1.3) Lymphocytes % 30.0 (24.0-44.0) % Monocytes % 9.3 (0.0-12.0) % Eosinophils % 1.6 (0.00-5.0) % Basophils % 0.3 (0.0-0.4) % Absolute Granulocytes 3.94 (1.4-6.9) Basophils # 0.02 (0-0.4) Sodium 141 (137-145) mmol/L Potassium 4.3 (3.5-5.1) mmol/L Chloride 106 (98-107) mmol/L Carbon Dioxide 24 (22-30) mmol/L Anion Gap 14.6 (5-15) MEQ/L BUN 13 (7-17) mg/dL Creatinine 0.74 (0.52-1.04) mg/dL Estimated GFR > 60.0 ML/MIN Glucose 100 (74-106) mg/dL Calcium 9.1 (8.4-10.2) mg/dL Total Bilirubin 0.20 (0.2-1.3) mg/dL AST 31 (14-36) U/L ALT 25 (0-35) U/L Alkaline Phosphatase 112 (38-126) U/L Troponin I < 0.012 (0.000-0.034) ng/mL Serum Total Protein 7.7 (6.3-8.2) g/dL Albumin 4.2 (3.5-5.0) g/dL - Progress Progress: improved Progress Note: 07/24/18 14:16 28-year-old white female arrives with complaint of tightness in her chest with breathing since this morning she states she is not experiencing tightness in her chest with breathing at this time however she states that she had recently started taking Keflex she stated that yesterday she started having hives which have resolved and then this morning she felt tight in her chest with breathing. She has no nausea no vomiting she does state that she just doesn't feel well. Patient states she is breathing fine at this point in time. Will go ahead and obtain an EKG CBC CMP troponin. Anticipate a reaction to Keflex which the patient has recently started. It does however appear that the hives as well as tightness in her chest with breathing has resolved. 07/24/18 17:46 Patient is really in no distress at this time she states she is feeling much better she is not short of breath I cannot find a rash. Will go ahead and write for prednisone tapering dose for the patient she is to take Benadryl 50 mg orally every 6 hours as needed. She is to contact her family physician and discuss whether to continue taking her Keflex. I do not see any obvious signs of allergic reaction however she did complain of some shortness of breath and in a rash which resolve spontaneously. - Departure Time of Disposition: 17:47 Departure Disposition: Home Clinical Impression: rule out allergy Adverse reaction to drug Qualifiers: Encounter type: initial encounter Qualified Code(s): T50.905A - Adverse effect of unspecified drugs, medicaments and biological substances, initial encounter Condition: Fair Critical Care Time: No Referrals: MONET GOODWIN [Primary Care Provider] - Additional Instructions: Return home. Tapering dose of prednisone as directed. Benadryl 50 mg every 6 hours as needed for one to 2 days. Plenty of fluids. Follow-up with your family doctor. Return for acute distress or for severe symptoms.
[2018-07-24 14:29] LABS: BASOPHIL % 0.3 % (0.0-0.4); Basophil (Absolute #) 0.02 (0-0.4); Eosinophil % 1.6 % (0.00-5.0); Eosinophil (Absolute #) 0.11 (0-0.5); Granulocyte Absolute (ANC) 3.94 (1.4-6.9); Granulocytes % 58.8 % (36.0-66.0); Hematocrit 41.3 % (35-47); Hemoglobin 13.8 gm/dl (12.0-16.0); Lymphocyte (Absolute #) 2.01 (1.0-4.6); Mean Cell Volume 85.2 fl (78-100); Mean Corpuscular Hemoglobin 28.5 pg (26-32); Mean Corpuscular Hgb Concent. 33.4 g/dl (32-36); Mean Platelet Volume 10.2 fl (6-9.5); Monocyte (Absolute #) 0.62 (0.0-1.3); Monocytes % 9.3 % (0.0-12.0); Platelet Count 332 K/mm3 (150-450); Red Blood Count 4.85 M/mm3 (4.1-5.4); Red Cell Distribution Width 12.7 % (11.5-14.0); White Blood Count 6.7 K/mm3 (4.0-10.5)
[2018-07-24 14:38] LABS: ALBUMIN 4.2 g/dL (3.5-5.0); ALKALINE PHOSPHATASE 112 U/L (38-126); ANION GAP 14.6 MEQ/L (5-15); BLOOD UREA NITROGEN 13 mg/dL (7-17); CHLORIDE 106 mmol/L (98-107); Calcium 9.1 mg/dL (8.4-10.2); Carbon Dioxide 24 mmol/L (22-30); Creatinine 1 0.74 mg/dL (0.52-1.04); Glucose 100 mg/dL (74-106); Potassium 4.3 mmol/L (3.5-5.1); SGOT/AST 31 U/L (14-36); SGPT/ALT 25 U/L (0-35); SODIUM 141 mmol/L (137-145); Total Protein 7.7 g/dL (6.3-8.2)
[2018-07-24 17:54] VITALS: BP 124/88; PULSE 74; O2SAT 98
== END 2018-07-24 17:57 | disposition home or self-care (01) ==
LOC: ED 12:48
DX: R07.89 Other chest pain (principal); R06.02 Shortness of breath; T36.1X5A Adverse effect of cephalosporins and other beta-lactam antibiotics, initial encounter; Z79.899 Other long term (current) drug therapy
CPT/HCPCS: 36000; 36415; 80053; 84484; 85025; 93005; 99284

== ENCOUNTER 2019-06-15 05:50 | Day surgery (SDC) | payer BC ==
[2019-06-15] MEDS ORDERED: Lactated Ringers 1,000 ML IV SCH (06:30)
[2019-06-15] MEDS ORDERED: DIPRIVAN 200 MG/20 ML IV ONE ×2 (07:34→07:42)
[2019-06-15] MEDS ORDERED: Versed 2 MG/2 ML Injection ONE (07:34)
[2019-06-15] MEDS ORDERED: Lactated Ringers 1,000 ML IV ONE (08:10)
--- NOTE | 2019-06-15 08:21 | OP ---
SURGERY DATE/TIME: 06/15/2019 0736 PREOPERATIVE DIAGNOSIS: Chronic constipation. POSTOPERATIVE DIAGNOSIS: Normal colon. PROCEDURE: Colonoscopy. SURGEON: Dr. Beauchamp. ANESTHESIA: MAC. Medications given by anesthesia department. HISTORY: The patient is a 29 year-old white female who reports that she has had years of constipation. She uses MiraLAX every other day to have bowel movements which at times will go up to a month without having a bowel movement but usually up to a week. The patient was felt the need to have endoscopic evaluation. She was appraised of the risks of the procedure including the risk of perforation, phlebitis, untoward reaction to medication, bleeding and missed lesions. The patient verbalized her understanding and desired to have the procedure performed. DESCRIPTION OF PROCEDURE: The patient was given the medications by the anesthesia department. She had continuous pulse oximetry, ECG monitoring, intermittent blood pressure monitoring and tidal CO2 monitoring during the examination. She was placed in the left lateral decubitus position. A digital rectal examination was performed and revealed normal anal sphincter tone and no masses. The flexible Olympus pediatric colonoscope was used to intubate the rectum. A view of the colon was developed sequentially to the cecum. Upon insertion and withdrawal, including a retroflex view in the rectum, no mucosal lesions were encountered. The scope was removed from the patient who tolerated the procedure well and was sent back to OP recovery in good condition. The prep was noted to be good.
[2019-06-15 08:54] VITALS: O2SAT 98
[2019-06-15 09:01] VITALS: BP 122/78; PULSE 78
== END 2019-06-15 09:04 | disposition home or self-care (01) ==
LOC: SDC 05:50
PROVIDERS: ATTEND Family Medicine
DX: K59.09 Other constipation (principal)
CPT/HCPCS: 84703; J2250; J2704

== ENCOUNTER 2020-06-11 16:05 | Emergency (ER) | payer BC ==
--- NOTE | 2020-06-11 16:25 | ERPHSYRPT ---
- History of Present Illness Time Seen by Provider: 06/11/20 16:06 Source: patient Exam Limitations: no limitations Patient Subjective Stated Complaint: Pt states "Dr Pierce nurse told me to come here. I have been having chest pain when I get all worked up at my 2 year old. I am almost 14 weeks ." Triage Nursing Assessment: Pt presented alert and oriented X 3, skin pwd pt ambulates with an upright steady gait, able to speak in clear full setences, no apparent respiratory distress. Physician History: Patient states I have history of anxiety and I take hydroxyzine for that. For last 3 days I get the chest pain lasting 2 to 3 minutes when I get mad at my 2 years old. And when I go away from her I feel better. Patient's [employer] sent her to the ER to be checked out and is 15 weeks . Patient has recently seen the [employer] and had ultrasound done which was okay according to patient Timing/Duration: day(s) (3) Severity: mild Modifying Factors: Improves With: other (When she gets mad at her child) Associated Symptoms: chest pain, No nausea, No vomiting, No abdominal pain, No shortness of breath, No heartburn, No diaphoresis, No cough, No chills, No fever, No headaches, No loss of appetite, No malaise, No rash, No syncope, No seizure, No weakness Allergies/Adverse Reactions: No Known Drug Allergies Allergy (Verified 06/15/19 06:21) Home Medications: Hydroxyzine HCl 25 mg [Atarax 25 mg] 25 mg PO TID 06/14/19 [History] Melatonin 20 mg PO QHS 06/14/19 [History] Vits W-Ca,Fe,FA(<1Mg) [] 2 each PO DAILY 06/14/19 [History] Verapamil HCl [Verapamil ER] 120 mg PO DAILY 06/11/20 [History] Hx Tetanus, Diphtheria Vaccination/Date Given: Yes Hx Influenza Vaccination/Date Given: Yes Hx Pneumococcal Vaccination/Date Given: No Immunizations Up to Date: Yes Travel Risk - International Travel Have you traveled outside of the country in past 3 weeks: No - Coronavirus Screening Are you exhibiting any of the following symptoms?: No Close contact with a COVID-19 positive Pt in past 14-21 Days: No - Review of Systems Constitutional: No Fever, No Chills Eyes: No Symptoms Ears, Nose, & Throat: No Symptoms Respiratory: No Cough, No Dyspnea Cardiac: Chest Pain, No Edema, No Syncope Abdominal/Gastrointestinal: No Abdominal Pain, No Nausea, No Vomiting, No Diarrhea Genitourinary Symptoms: No Dysuria Musculoskeletal: No Back Pain, No Neck Pain Skin: No Rash Neurological: No Dizziness, No Focal Weakness, No Sensory Changes Psychological: Anxiety Endocrine: No Symptoms All Other Systems: Reviewed and Negative - Past Medical History Pertinent Past Medical History: Yes Neurological History: No Pertinent History ENT History: No Pertinent History Cardiac History: Hypertension Respiratory History: Asthma Endocrine Medical History: No Pertinent History Musculoskeletal History: No Pertinent History GI Medical History: GERD, Other History: No Pertinent History Psycho-Social History: Anxiety, Depression Female Reproductive Disorders: No Pertinent History Other Medical History: CONSTIPATION - Past Surgical History Past Surgical History: Yes Neuro Surgical History: No Pertinent History Cardiac: No Pertinent History Respiratory: No Pertinent History Gastrointestinal: No Pertinent History Genitourinary: No Pertinent History Musculoskeletal: No Pertinent History Female Surgical History: Section, Other Other Surgical History: excision of back cyst - Aug 2015, laporascopy apr 27 2018 - Social History Smoking Status: Never smoker Exposure to second hand smoke: Yes Drug Use: none Patient Lives Alone: No - Female History Hx Last Menstrual Period: unknown Hx Now: Yes Expected Date of Delivery: 12/12/20 Gestational Age: 13 weeks 5 - Nursing Vital Signs Nursing Vital Signs: Initial Vital Signs Temperature 98.2 F 06/11/20 16:06 Pulse Rate 105 H 06/11/20 16:06 Respiratory Rate 20 06/11/20 16:06 Blood Pressure 135/85 06/11/20 16:06 O2 Sat by Pulse Oximetry 98 06/11/20 16:06 Pain Scale Pain Intensity 0 - Physical Exam General Appearance: no apparent distress, alert, anxiety, other (Examined in presence of female RN) Eye Exam: PERRL/EOMI, eyes nml inspection Ears, Nose, Throat Exam: normal ENT inspection, TMs normal, pharynx normal, moist mucous membranes Neck Exam: normal inspection, non-tender, supple, full range of motion Respiratory Exam: normal breath sounds, lungs clear, No respiratory distress Cardiovascular Exam: regular rate/rhythm, normal heart sounds, normal peripheral pulses Gastrointestinal/Abdomen Exam: soft, normal bowel sounds, No tenderness, No mass Pelvic Exam: not done Rectal Exam: deferred Back Exam: normal inspection, normal range of motion, No CVA tenderness, No vertebral tenderness Extremity Exam: normal inspection, normal range of motion, pelvis stable Neurologic Exam: alert, oriented x 3, cooperative, normal mood/affect, nml cerebellar function, nml station & gait, sensation nml, No motor deficits Skin Exam: normal color, warm, dry, No rash Lymphatic Exam: No adenopathy SpO2 Interpretation: normal SpO2: 98 O2 Delivery: Room Air - Course Nursing assessment & vital signs reviewed: Yes EKG Interpreted by Me: RATE, Sinus Rhythm, Sinus Tach, NORMAL AXIS, NORMAL INTERVALS, NORMAL QRS, NORMAL ST-T Ordered Tests: Active Orders 24 hr Category Date Time Status EKG-ER Only STAT Care 06/11/20 16:11 Active CBC W DIFF Stat Lab 06/11/20 16:30 Completed CK-Creatinine Phosphokinase Stat Lab 06/11/20 16:30 Completed CMP Stat Lab 06/11/20 16:30 Completed D-DIMER QUANTITATIVE Stat Lab 06/11/20 16:30 Completed TROPONIN Stat Lab 06/11/20 16:30 Completed Lab/Rad Data: Laboratory Result Diagrams 06/11/20 16:30 06/11/20 16:30 Laboratory Results 06/11/20 06/11/20 06/11/20 Range/Units 16:30 16:30 16:30 WBC 11.4 H (4.0-10.5) K/mm3 RBC 4.26 (4.1-5.4) M/mm3 Hgb 12.5 (12.0-16.0) gm/dl Hct 37.1 (35-47) % MCV 87.1 (78-100) fl MCH 29.3 (26-32) pg MCHC 33.7 (32-36) g/dl RDW 13.0 (11.5-14.0) % Plt Count 292 (150-450) K/mm3 MPV 9.5 (7.5-11.0) fl Gran % 69.8 H (36.0-66.0) % Eos # (Auto) 0.14 (0-0.5) Absolute Lymphs (auto) 2.18 (1.0-4.6) Absolute Monos (auto) 1.09 (0.0-1.3) Lymphocytes % 19.2 L (24.0-44.0) % Monocytes % 9.6 (0.0-12.0) % Eosinophils % 1.2 (0.00-5.0) % Basophils % 0.2 (0.0-0.4) % Absolute Granulocytes 7.92 H (1.4-6.9) Basophils # 0.02 (0-0.4) D-Dimer 373 (215-500) ng/mL Sodium 135 L (137-145) mmol/L Potassium 4.3 (3.5-5.1) mmol/L Chloride 106 (98-107) mmol/L Carbon Dioxide 22 (22-30) mmol/L Anion Gap 11.4 (5-15) MEQ/L BUN 7 (7-17) mg/dL Creatinine 0.48 L (0.52-1.04) mg/dL Estimated GFR > 60.0 ML/MIN Glucose 98 (74-106) mg/dL Calcium 9.3 (8.4-10.2) mg/dL Total Bilirubin 0.20 (0.2-1.3) mg/dL AST 19 (14-36) U/L ALT 18 (0-35) U/L Alkaline Phosphatase 86 (38-126) U/L Creatine Kinase 32 (30-135) U/L Troponin I < 0.012 (0.000-0.034) ng/mL Serum Total Protein 7.3 (6.3-8.2) g/dL Albumin 3.9 (3.5-5.0) g/dL - Progress Progress: improved Progress Note: 06/11/20 17:50 Given the large differential diagnosis for Domenica Posadas, the decision making in this case is of Moderate complexity. After evaluating all of the data points in this case, the presentation of Domenica Posadas is NOT consistent with Acute Coronary Syndrome (ACS) and/or myocardial ischemia, pulmonary embolism, aortic dissection; Borhaave's, significant arrythmia, pneumothorax, cardiac tamponade, or other emergent cardiopulmonary condition. Further, the presentation of Domenica Posadas is NOT consistent with pericarditis, myocarditis, cholecystitis, pancreatitis, mediastinitis, endocarditis, new valvular disease. Additionally, the presentation of Domenica Posadas is NOT consistent with flail chest, cardiac contusion, ARDS, or significant intra-thoracic or intra-abdominal bleeding. Similarly, this presentation is NOT consistent with pneumonia, sepsis, or pyelonephritis. Strict return and follow-up precautions have been given by me personally to the patient. Data Reviewed/Counseling: I have reviewed the patient's vital signs, nursing notes, and other relevant tests/information. I had a detailed discussion regarding the historical points, exam findings, and any diagnostic results supporting the discharge diagnosis. I also discussed the need for outpatient follow-up and the need to return to the ED if symptoms worsen or if there are any questions or concerns that arise at home. Counseled pt/family regarding: lab results, diagnosis, need for follow-up - Departure Departure Disposition: Home Clinical Impression: Chest pain of uncertain etiology, Generalized anxiety disorder Condition: Good Critical Care Time: No Referrals: MONET SANFORD [Primary Care Provider] - Follow Up with PCP/3 days
[2020-06-11 16:49] LABS: Absolute Neutrophil Ct (ANC) 7.92 (1.4-6.9); BASOPHIL % 0.2 % (0.0-0.4); Basophil (Absolute #) 0.02 (0-0.4); Eosinophil % 1.2 % (0.00-5.0); Eosinophil (Absolute #) 0.14 (0-0.5); Hematocrit 37.1 % (35-47); Hemoglobin 12.5 gm/dl (12.0-16.0); Lymphocyte (Absolute #) 2.18 (1.0-4.6); Lymphocytes % 19.2 % (24.0-44.0); Mean Cell Volume 87.1 fl (78-100); Mean Corpuscular Hemoglobin 29.3 pg (26-32); Mean Corpuscular Hgb Concent. 33.7 g/dl (32-36); Mean Platelet Volume 9.5 fl (7.5-11.0); Monocyte (Absolute #) 1.09 (0.0-1.3); Monocytes % 9.6 % (0.0-12.0); Neutrophil % 69.8 % (36.0-66.0); Platelet Count 292 K/mm3 (150-450); Red Blood Count 4.26 M/mm3 (4.1-5.4); White Blood Count 11.4 K/mm3 (4.0-10.5)
[2020-06-11 17:09] LABS: ALBUMIN 3.9 g/dL (3.5-5.0); ALKALINE PHOSPHATASE 86 U/L (38-126); ANION GAP 11.4 MEQ/L (5-15); BLOOD UREA NITROGEN 7 mg/dL (7-17); CHLORIDE 106 mmol/L (98-107); CK-Creatinine Phosphokinase 32 U/L (30-135); Calcium 9.3 mg/dL (8.4-10.2); Carbon Dioxide 22 mmol/L (22-30); Creatinine 1 0.48 mg/dL (0.52-1.04); EST GLOMERULAR FILTRATION RATE > 60.0 ML/MIN; Glucose 98 mg/dL (74-106); Potassium 4.3 mmol/L (3.5-5.1); SGOT/AST 19 U/L (14-36); SGPT/ALT 18 U/L (0-35); SODIUM 135 mmol/L (137-145); Total Protein 7.3 g/dL (6.3-8.2)
[2020-06-11 17:10] LABS: TROPONIN < 0.012 ng/mL (0.000-0.034)
[2020-06-11 18:09] VITALS: BP 100/61; PULSE 88; O2SAT 99
== END 2020-06-11 18:22 | disposition home or self-care (01) ==
LOC: ED 16:05
DX: O26.892 Other specified pregnancy related conditions, second trimester (principal); Z3A.15 15 weeks gestation of pregnancy; R07.9 Chest pain, unspecified; F41.1 Generalized anxiety disorder; I10 Essential (primary) hypertension
CPT/HCPCS: 36415; 80053; 82550; 84484; 85025; 85379; 93005; 99284

== ENCOUNTER 2020-06-16 10:42 | Emergency (ER) | payer BC ==
[2020-06-16 11:20] LABS: Appearance SLIGHTLY CLOUDY (CLEAR); Bacteria RARE /HPF (NEGATIVE); Bilirubin NEGATIVE (NEGATIVE); Blood NEGATIVE Ery/ul (0-5); Epithelial Cells RARE /HPF (FEW); Glucose NEGATIVE (NEGATIVE); Ketones NEGATIVE (NEGATIVE); Leukocyte Esterase NEGATIVE (NEGATIVE); Mucus SLIGHT /HPF (NEGATIVE); Nitrite NEGATIVE (NEGATIVE); Protein,Urine Dip NEGATIVE (Negative); RBC 0-2 /HPF (0-2); Specific Gravity 1.023 (1.005-1.025); Urobilinogen NEGATIVE mg/dL (0-1); WBC 0-2 /HPF (0-5)
[2020-06-16] MEDS ORDERED: Sodium Chloride 0.9% 1000 ML 1,000 ML IV STA (11:34)
[2020-06-16] MEDS ORDERED: Sodium Chloride 0.9% 1000 ML 1,000 ML ONE (11:36)
--- NOTE | 2020-06-16 11:45 | ERPHSYRPT ---
- History of Present Illness Time Seen by Provider: 06/16/20 11:20 Source: patient Exam Limitations: no limitations Patient Subjective Stated Complaint: pt here for a syncopal on tuesday and states she now gets dizzy at times, she johan hitting head on tuesday, she is 14 weeks and 4 days Triage Nursing Assessment: pt alert, walked in, resp easy, face mask in place, skin w/d/p. abd soft, no vaginal bleeding , no cramping Physician History: Patient is a 30-year-old female who is G2, P1 at 14 weeks and 4 days gestation. Patient has history of anxiety and preeclampsia with her previous as well as this one. Patient was walking upstairs on her porch stairs on Tuesday which was 3 days ago when she felt faint and dropped to her knees and hands at the top step. She does not remember falling but had a brief loss of consciousness. Her caught her as she was going down. Patient denies any head injury. She did not feel any abdominal pain or cramping and did not think that she hit her stomach on the fall. Patient was seen here on the fourth 2 days prior to the fall for anxiety. Patient had a full work-up which was negative. Patient does take hydroxyzine for her anxiety. She was advised to take the pill 3 times a day which is an increase from 2 times a day which she took in the morning and before bedtime. Since the fall, she went back to 2 times a day on her hydroxyzine and has felt no dizziness or feeling faint. Patient denies any abdominal pain or vaginal bleeding since then. Witnessed: by family Prior Episodes: recent history Timing/Duration: day(s) (3) Precipitating Factors: lightheadedness Context: other (Walking upstairs on porch steps) Loss of Consciousness: brief (seconds) Allergies/Adverse Reactions: No Known Drug Allergies Allergy (Verified 06/16/20 10:49) Home Medications: Hydroxyzine HCl 25 mg [Atarax 25 mg] 25 mg PO TID 06/14/19 [History] Melatonin 20 mg PO QHS 06/14/19 [History] Vits W-Ca,Fe,FA(<1Mg) [] 2 each PO DAILY 06/14/19 [History] Verapamil HCl [Verapamil ER] 120 mg PO DAILY 06/11/20 [History] Hx Tetanus, Diphtheria Vaccination/Date Given: No Hx Influenza Vaccination/Date Given: Yes Hx Pneumococcal Vaccination/Date Given: No Immunizations Up to Date: Yes Travel Risk - International Travel Have you traveled outside of the country in past 3 weeks: No - Coronavirus Screening Are you exhibiting any of the following symptoms?: No Close contact with a COVID-19 positive Pt in past 14-21 Days: No - Past Medical History Pertinent Past Medical History: Yes Neurological History: No Pertinent History ENT History: No Pertinent History Cardiac History: Hypertension Respiratory History: Asthma Endocrine Medical History: No Pertinent History Musculoskeletal History: No Pertinent History GI Medical History: GERD, Other History: No Pertinent History Psycho-Social History: Anxiety, Depression Female Reproductive Disorders: No Pertinent History Other Medical History: CONSTIPATION - Past Surgical History Past Surgical History: Yes Neuro Surgical History: No Pertinent History Cardiac: No Pertinent History Respiratory: No Pertinent History Gastrointestinal: No Pertinent History Genitourinary: No Pertinent History Musculoskeletal: No Pertinent History Female Surgical History: Section, Other Other Surgical History: excision of back cyst - Aug 2015, laporascopy apr 27 2018 - Social History Smoking Status: Never smoker Exposure to second hand smoke: No Drug Use: none Patient Lives Alone: No - Female History Hx Last Menstrual Period: unsure Hx Now: Yes Expected Date of Delivery: 12/12/20 - Review of Systems Constitutional: No Fever, No Chills Eyes: No Symptoms Ears, Nose, & Throat: No Symptoms Respiratory: No Cough, No Dyspnea Cardiac: No Chest Pain, No Edema, No Syncope Abdominal/Gastrointestinal: No Abdominal Pain, No Nausea, No Vomiting, No Diarrhea Genitourinary Symptoms: No Dysuria Musculoskeletal: No Back Pain, No Neck Pain Skin: No Rash Neurological: Dizziness, Other (Syncope), No Focal Weakness, No Sensory Changes Psychological: No Symptoms Endocrine: No Symptoms All Other Systems: Reviewed and Negative Physical Exam - Nursing Vital Signs Nursing Vital Signs: Initial Vital Signs Temperature 97.1 F 06/16/20 10:49 Respiratory Rate 18 06/16/20 10:49 Blood Pressure 123/67 06/16/20 10:49 O2 Sat by Pulse Oximetry 100 06/16/20 10:49 Pain Scale Pain Intensity 0 - Lexy Coma Scale Best Eye Response (Lexy): (4) open spontaneously Best Verbal Response (Lexy): (5) oriented Best Motor Response (Adena): (6) obeys commands Adena Total: 15 - Physical Exam General Appearance: no apparent distress, alert Eye Exam: bilateral eye: PERRL, EOMI Ears, Nose, Throat Exam: normal ENT inspection, pharynx normal, moist mucous membranes Neck Exam: normal inspection, non-tender, supple, full range of motion Respiratory: normal breath sounds, lungs clear, No chest tenderness, No respiratory distress Cardiovascular: regular rate/rhythm, capillary refill <2 sec, No murmur, No pulse deficit Gastrointestinal: soft, No tenderness, No distention, No mass Back Exam: normal inspection, normal range of motion, No CVA tenderness, No vertebral tenderness Extremity Exam: normal inspection, normal range of motion, pelvis stable, No tenderness Mental Status: alert, oriented x 3, 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 Exam: normal speech, PERRL, No facial droop Coordination/Gait: normal finger to nose Motor/Sensory: no motor deficit, no sensory deficit, no pronator drift Skin Exam: normal color, warm, dry, No rash SpO2 Interpretation: normal SpO2: 100 Comments: heart tones 152 - Course Nursing assessment & vital signs reviewed: Yes EKG Interpreted by Me: Sinus Rhythm, NORMAL AXIS, NORMAL INTERVALS, NORMAL QRS Ordered Tests: Active Orders 24 hr Category Date Time Status EKG-ER Only STAT Care 06/16/20 11:34 Active IV Insertion ROUTINE Care 06/16/20 11:34 Active CBC W DIFF Stat Lab 06/16/20 11:44 Completed CMP Stat Lab 06/16/20 11:44 Completed UA W/RFX UR CULTURE Stat Lab 06/16/20 10:58 Completed Medication Summary Generic Name Dose Route Start Last Admin Trade Name Freq PRN Reason Stop Dose Admin Sodium Chloride 1,000 mls @ 999 mls/hr 06/16/20 11:34 06/16/20 11:37 Sodium Chloride 0.9% 1000 Ml IV 06/16/20 12:34 999 mls/hr .[id number] STA Administration Discontinued Medications Generic Name Dose Route Start Last Admin Trade Name Freq PRN Reason Stop Dose Admin Sodium Chloride Confirm 06/16/20 11:36 Sodium Chloride 0.9% 1000 Ml Administered 06/16/20 11:37 Dose 1,000 mls @ ud .ROUTE .K-MED ONE Lab/Rad Data: Laboratory Result Diagrams 06/16/20 11:44 11/09/20 11:44 Laboratory Results 06/16/20 06/16/20 06/16/20 Range/Units 11:44 11:44 10:58 WBC 10.6 H (4.0-10.5) K/mm3 RBC 4.27 (4.1-5.4) M/mm3 Hgb 12.4 (12.0-16.0) gm/dl Hct 37.1 (35-47) % MCV 86.9 (78-100) fl MCH 29.0 (26-32) pg MCHC 33.4 (32-36) g/dl RDW 13.1 (11.5-14.0) % Plt Count 279 (150-450) K/mm3 MPV 9.3 (7.5-11.0) fl Gran % 73.9 H (36.0-66.0) % Eos # (Auto) 0.10 (0-0.5) Absolute Lymphs (auto) 1.71 (1.0-4.6) Absolute Monos (auto) 0.94 (0.0-1.3) Lymphocytes % 16.2 L (24.0-44.0) % Monocytes % 8.9 (0.0-12.0) % Eosinophils % 0.9 (0.00-5.0) % Basophils % 0.1 (0.0-0.4) % Absolute Granulocytes 7.81 H (1.4-6.9) Basophils # 0.01 (0-0.4) Sodium 136 L (137-145) mmol/L Potassium 4.0 (3.5-5.1) mmol/L Chloride 107 (98-107) mmol/L Carbon Dioxide 23 (22-30) mmol/L Anion Gap 9.2 (5-15) MEQ/L BUN 7 (7-17) mg/dL Creatinine 0.53 (0.52-1.04) mg/dL Estimated GFR > 60.0 ML/MIN Glucose 97 (74-106) mg/dL Calcium 9.0 (8.4-10.2) mg/dL Total Bilirubin 0.20 (0.2-1.3) mg/dL AST 18 (14-36) U/L ALT 16 (0-35) U/L Alkaline Phosphatase 82 (38-126) U/L Serum Total Protein 7.1 (6.3-8.2) g/dL Albumin 3.7 (3.5-5.0) g/dL Urine Color YELLOW (YELLOW) Urine Appearance SLIGHTLY CLOUDY (CLEAR) Urine pH 5.0 (5-6) Ur Specific [place] 1.023 (1.005-1.025) Urine Protein NEGATIVE (Negative) Urine Ketones NEGATIVE (NEGATIVE) Urine Blood NEGATIVE (0-5) Mychal/ul Urine Nitrite NEGATIVE (NEGATIVE) Urine Bilirubin NEGATIVE (NEGATIVE) Urine Urobilinogen NEGATIVE (0-1) mg/dL Ur Leukocyte Esterase NEGATIVE (NEGATIVE) Urine WBC (Auto) 0-2 (0-5) /HPF Urine RBC (Auto) 0-2 (0-2) /HPF U Epithel Cells (Auto) RARE (FEW) /HPF Urine Bacteria (Auto) RARE (NEGATIVE) /HPF Urine Mucus (Auto) SLIGHT (NEGATIVE) /HPF Urine Culture Reflexed NO (NO) Urine Glucose NEGATIVE (NEGATIVE) mg/dL - Progress Progress: improved Progress Note: 06/16/20 11:46 Most likely symptoms related to the extra dose of hydroxyzine which will definitely cause lightheadedness and dizziness. Orthostatics, CBC, CMP, EKG, urinalysis and IV fluids. 06/16/20 12:31 Discussed with OB. We will keep hydroxyzine at twice a day. Can discharge home. Discussed with : Liam Will see patient in: office Counseled pt/family regarding: lab results, diagnosis, need for follow-up - Departure Departure Disposition: Home Clinical Impression: Adverse reaction to drug, Condition: Stable Critical Care Time: No Referrals: MONET SANFORD [Primary Care Provider] - Instructions: Side Effects From Medicines Additional Instructions: Drink plenty of water Stick with twice a day hydroxyzine. Follow-up with OB as scheduled. Return to ER if worse.
[2020-06-16 11:48] LABS: Absolute Neutrophil Ct (ANC) 7.81 (1.4-6.9); BASOPHIL % 0.1 % (0.0-0.4); Basophil (Absolute #) 0.01 (0-0.4); Eosinophil % 0.9 % (0.00-5.0); Hematocrit 37.1 % (35-47); Hemoglobin 12.4 gm/dl (12.0-16.0); Lymphocyte (Absolute #) 1.71 (1.0-4.6); Lymphocytes % 16.2 % (24.0-44.0); Mean Cell Volume 86.9 fl (78-100); Mean Corpuscular Hgb Concent. 33.4 g/dl (32-36); Mean Platelet Volume 9.3 fl (7.5-11.0); Monocyte (Absolute #) 0.94 (0.0-1.3); Monocytes % 8.9 % (0.0-12.0); Neutrophil % 73.9 % (36.0-66.0); Platelet Count 279 K/mm3 (150-450); Red Blood Count 4.27 M/mm3 (4.1-5.4); Red Cell Distribution Width 13.1 % (11.5-14.0); White Blood Count 10.6 K/mm3 (4.0-10.5)
[2020-06-16 11:57] LABS: ALBUMIN 3.7 g/dL (3.5-5.0); ALKALINE PHOSPHATASE 82 U/L (38-126); ANION GAP 9.2 MEQ/L (5-15); BLOOD UREA NITROGEN 7 mg/dL (7-17); CHLORIDE 107 mmol/L (98-107); Carbon Dioxide 23 mmol/L (22-30); Creatinine 1 0.53 mg/dL (0.52-1.04); EST GLOMERULAR FILTRATION RATE > 60.0 ML/MIN; Glucose 97 mg/dL (74-106); SGOT/AST 18 U/L (14-36); SGPT/ALT 16 U/L (0-35); SODIUM 136 mmol/L (137-145); Total Protein 7.1 g/dL (6.3-8.2)
[2020-06-16 13:07] VITALS: BP 101/57; PULSE 74; O2SAT 98
== END 2020-06-16 13:07 | disposition home or self-care (01) ==
LOC: ED 10:42
DX: O26.92 Pregnancy related conditions, unspecified, second trimester (principal); Z3A.14 14 weeks gestation of pregnancy; R42 Dizziness and giddiness; T43.595A Adverse effect of other antipsychotics and neuroleptics, initial encounter
CPT/HCPCS: 36415; 80053; 81001; 85025; 93005; 96360; 99284

== ENCOUNTER → 2020-07-05 10:36 | Observation (INO) | payer BC | END | disposition home or self-care (01) | LOC: OB 10:36 → MED SURG 10:36 → UNDOADMOB 10:36 | PROVIDERS: ADMIT Family Medicine; ATTEND Family Medicine | DX: Z53.9 Procedure and treatment not carried out, unspecified reason (principal) ==

== ENCOUNTER 2020-09-16 14:14 | Emergency (ER) | payer BC, SELFPAY ==
[2020-09-16 14:33] LABS: Absolute Neutrophil Ct (ANC) 11.51 (1.4-6.9); BASOPHIL % 0.1 % (0.0-0.4); Basophil (Absolute #) 0.01 (0-0.4); Eosinophil % 0.9 % (0.00-5.0); Eosinophil (Absolute #) 0.13 (0-0.5); Hematocrit 36.9 % (35-47); Hemoglobin 12.2 gm/dl (12.0-16.0); Lymphocyte (Absolute #) 1.54 (1.0-4.6); Lymphocytes % 10.7 % (24.0-44.0); Mean Cell Volume 89.3 fl (78-100); Mean Corpuscular Hemoglobin 29.5 pg (26-32); Mean Corpuscular Hgb Concent. 33.1 g/dl (32-36); Mean Platelet Volume 9.3 fl (7.5-11.0); Monocyte (Absolute #) 1.24 (0.0-1.3); Monocytes % 8.6 % (0.0-12.0); Neutrophil % 79.7 % (36.0-66.0); Platelet Count 299 K/mm3 (150-450); Red Blood Count 4.13 M/mm3 (4.1-5.4); Red Cell Distribution Width 13.7 % (11.5-14.0); White Blood Count 14.4 K/mm3 (4.0-10.5)
[2020-09-16 14:44] LABS: Appearance SLIGHTLY CLOUDY (CLEAR); Bacteria FEW /HPF (NEGATIVE); Bilirubin NEGATIVE (NEGATIVE); Blood NEGATIVE Ery/ul (0-5); Epithelial Cells RARE /HPF (FEW); Glucose NEGATIVE (NEGATIVE); Ketones NEGATIVE (NEGATIVE); Leukocyte Esterase NEGATIVE (NEGATIVE); Mucus SLIGHT /HPF (NEGATIVE); Nitrite NEGATIVE (NEGATIVE); Protein,Urine Dip NEGATIVE (Negative); Specific Gravity 1.011 (1.005-1.025); Urobilinogen NEGATIVE mg/dL (0-1)
--- NOTE | 2020-09-16 14:46 | XRAY ---
Indication: Ankle swelling. 28 weeks . Comparison: April 30, 2018. Portable chest again demonstrates normal heart, lungs, and bony thorax.
[2020-09-16 14:51] LABS: ALBUMIN 3.6 g/dL (3.5-5.0); ALKALINE PHOSPHATASE 105 U/L (38-126); ANION GAP 10.3 MEQ/L (5-15); BLOOD UREA NITROGEN 4 mg/dL (7-17); CHLORIDE 103 mmol/L (98-107); Calcium 9.5 mg/dL (8.4-10.2); Carbon Dioxide 26 mmol/L (22-30); Creatinine 1 0.51 mg/dL (0.52-1.04); EST GLOMERULAR FILTRATION RATE > 60.0 ML/MIN; Glucose 105 mg/dL (74-106); SGOT/AST 16 U/L (14-36); SGPT/ALT 12 U/L (0-35); SODIUM 135 mmol/L (137-145)
--- NOTE | 2020-09-16 15:03 | ERPHSYRPT ---
- History of Present Illness Source: patient Exam Limitations: no limitations Patient Subjective Stated Complaint: Pt states that she has had a head ache for about 3 days and today her legs/feet/and hands have swollen, she also has pain in her medial upper chest Triage Nursing Assessment: Pt was brought to the ER by her dad, vitals wnl, rates pain 4/10, pulses normal, slight swelling of hands and feet, no difficulties with breathing, skin n/w/d, 27 weeks and 4 days gestation, preeclampsia with first around 27 weeks, doesn't appear to be in any distress Allergies/Adverse Reactions: No Known Drug Allergies Allergy (Verified 09/16/20 14:25) Home Medications: Hydroxyzine HCl 25 mg [Atarax 25 mg] 25 mg PO DAILY 06/14/19 [History] Melatonin 20 mg PO QHS 06/14/19 [History] Vits W-Ca,Fe,FA(<1Mg) [] 2 each PO DAILY 06/14/19 [History] Verapamil HCl [Verapamil ER] 120 mg PO DAILY 06/11/20 [History] Aspirin EC 81 mg [Ecotrin 81 mg] 81 mg PO DAILY 09/16/20 [History] Hx Tetanus, Diphtheria Vaccination/Date Given: No Hx Influenza Vaccination/Date Given: Yes Hx Pneumococcal Vaccination/Date Given: No Travel Risk - International Travel Have you traveled outside of the country in past 3 weeks: No - Coronavirus Screening Are you exhibiting any of the following symptoms?: No Close contact with a COVID-19 positive Pt in past 14-21 Days: No - Review of Systems Constitutional: No Symptoms, No Fever, No Chills Eyes: No Symptoms Ears, Nose, & Throat: No Symptoms Respiratory: No Symptoms, No Cough, No Dyspnea Cardiac: No Symptoms, No Chest Pain, No Edema, No Syncope Abdominal/Gastrointestinal: No Symptoms, No Abdominal Pain, No Nausea, No Vomiting, No Diarrhea Genitourinary Symptoms: No Symptoms, No Dysuria Musculoskeletal: No Symptoms, No Back Pain, No Neck Pain Skin: No Symptoms, No Rash Neurological: No Symptoms, No Dizziness, No Focal Weakness, No Sensory Changes Psychological: No Symptoms Endocrine: No Symptoms Hematologic/Lymphatic: No Symptoms Immunological/Allergic: No Symptoms All Other Systems: Reviewed and Negative - Past Medical History Pertinent Past Medical History: Yes Neurological History: No Pertinent History ENT History: No Pertinent History Cardiac History: Hypertension Respiratory History: Asthma Endocrine Medical History: No Pertinent History Musculoskeletal History: No Pertinent History GI Medical History: GERD, Other History: No Pertinent History Psycho-Social History: Anxiety, Depression Female Reproductive Disorders: No Pertinent History Other Medical History: CONSTIPATION - Past Surgical History Past Surgical History: Yes Neuro Surgical History: No Pertinent History Cardiac: No Pertinent History Respiratory: No Pertinent History Gastrointestinal: No Pertinent History Genitourinary: No Pertinent History Musculoskeletal: No Pertinent History Female Surgical History: Section, Other Other Surgical History: excision of back cyst - Aug 2015, laporascopy apr 27 2018 - Social History Smoking Status: Never smoker Exposure to second hand smoke: No Drug Use: none Patient Lives Alone: No - Female History Hx Now: Yes - Nursing Vital Signs Nursing Vital Signs: Initial Vital Signs Pulse Rate 100 H 09/16/20 14:16 Blood Pressure 126/80 09/16/20 14:16 O2 Sat by Pulse Oximetry 98 09/16/20 14:16 Pain Scale Pain Intensity 4 - Physical Exam General Appearance: no apparent distress, alert Eye Exam: PERRL/EOMI, eyes nml inspection Neck Exam: normal inspection, non-tender, supple, full range of motion, No meningismus, No midline tenderness Respiratory Exam: normal breath sounds, lungs clear, No respiratory distress Cardiovascular Exam: regular rate/rhythm, normal heart sounds Gastrointestinal Exam: soft, No tenderness, No mass Extremity Exam: normal inspection, normal range of motion, No calf tenderness, No pedal edema Neurologic Exam: alert, oriented x 3, cooperative, general service officer II-XII nml as tested, normal mood/affect, nml station & gait, sensation nml, No motor deficits Skin Exam: normal color, warm, dry, No rash Lymphatic Exam: No adenopathy SpO2 Interpretation: normal SpO2: 98 O2 Delivery: Room Air - Course Nursing assessment & vital signs reviewed: Yes EKG Interpreted by Me: RATE ([id number]), Sinus Tach, NORMAL AXIS, NORMAL INTERVALS - Radiology Exams Chest X-ray Interpretation: Teleradiologist Report (Normal Heart lungs and bony thorax.) Ordered Tests: Active Orders 24 hr Category Date Time Status Rn Radiology STAT Care 09/16/20 14:22 Active EKG-ER Only STAT Care 09/16/20 14:21 Active IV Insertion STAT Care 09/16/20 14:21 Active Pulse Oximetry (ED) STAT Care 09/16/20 14:21 Active CHEST 1 VIEW (PORTABLE) Stat Exams 09/16/20 14:21 Completed CBC W DIFF Stat Lab 09/16/20 14:25 Completed CMP Stat Lab 09/16/20 14:25 Completed TROPONIN Q3H Lab 09/16/20 14:25 Received TROPONIN Q3H Lab 09/16/20 17:30 Ordered TROPONIN Q3H Lab 09/16/20 20:30 Ordered TROPONIN Q3H Lab 09/16/20 23:30 Ordered TROPONIN Q3H Lab 09/17/20 02:30 Ordered UA W/RFX UR CULTURE Stat Lab 09/16/20 14:28 Completed Uric Acid Stat Lab 09/16/20 14:25 Completed Lab/Rad Data: Laboratory Result Diagrams 09/16/20 14:25 09/16/20 14:25 Laboratory Results 09/16/20 09/16/20 09/16/20 Range/Units 14:28 14:25 14:25 WBC (4.0-10.5) K/mm3 RBC (4.1-5.4) M/mm3 Hgb (12.0-16.0) gm/dl Hct (35-47) % MCV (78-100) fl MCH (26-32) pg MCHC (32-36) g/dl RDW (11.5-14.0) % Plt Count (150-450) K/mm3 MPV (7.5-11.0) fl Gran % (36.0-66.0) % Eos # (Auto) (0-0.5) Absolute Lymphs (auto) (1.0-4.6) Absolute Monos (auto) (0.0-1.3) Lymphocytes % (24.0-44.0) % Monocytes % (0.0-12.0) % Eosinophils % (0.00-5.0) % Basophils % (0.0-0.4) % Absolute Granulocytes (1.4-6.9) Basophils # (0-0.4) Sodium 135 L (137-145) mmol/L Potassium 4.0 (3.5-5.1) mmol/L Chloride 103 (98-107) mmol/L Carbon Dioxide 26 (22-30) mmol/L Anion Gap 10.3 (5-15) MEQ/L BUN 4 L (7-17) mg/dL Creatinine 0.51 L (0.52-1.04) mg/dL Estimated GFR > 60.0 ML/MIN Glucose 105 (74-106) mg/dL Uric Acid 3.7 (2.6-6.0) mg/dL Calcium 9.5 (8.4-10.2) mg/dL Total Bilirubin 0.10 L (0.2-1.3) mg/dL AST 16 (14-36) U/L ALT 12 (0-35) U/L Alkaline Phosphatase 105 (38-126) U/L Serum Total Protein 7.0 (6.3-8.2) g/dL Albumin 3.6 (3.5-5.0) g/dL Urine Color YELLOW (YELLOW) Urine Appearance SLIGHTLY CLOUDY (CLEAR) Urine pH 7.0 (5-6) Ur Specific [place] 1.011 (1.005-1.025) Urine Protein NEGATIVE (Negative) Urine Ketones NEGATIVE (NEGATIVE) Urine Blood NEGATIVE (0-5) Mychal/ul Urine Nitrite NEGATIVE (NEGATIVE) Urine Bilirubin NEGATIVE (NEGATIVE) Urine Urobilinogen NEGATIVE (0-1) mg/dL Ur Leukocyte Esterase NEGATIVE (NEGATIVE) Urine WBC (Auto) 3-5 (0-5) /HPF Urine RBC (Auto) NONE (0-2) /HPF U Epithel Cells (Auto) RARE (FEW) /HPF Urine Bacteria (Auto) FEW (NEGATIVE) /HPF Urine Mucus (Auto) SLIGHT (NEGATIVE) /HPF Urine Culture Reflexed NO (NO) Urine Glucose NEGATIVE (NEGATIVE) mg/dL 09/16/20 Range/Units 14:25 WBC 14.4 H (4.0-10.5) K/mm3 RBC 4.13 (4.1-5.4) M/mm3 Hgb 12.2 (12.0-16.0) gm/dl Hct 36.9 (35-47) % MCV 89.3 (78-100) fl MCH 29.5 (26-32) pg MCHC 33.1 (32-36) g/dl RDW 13.7 (11.5-14.0) % Plt Count 299 (150-450) K/mm3 MPV 9.3 (7.5-11.0) fl Gran % 79.7 H (36.0-66.0) % Eos # (Auto) 0.13 (0-0.5) Absolute Lymphs (auto) 1.54 (1.0-4.6) Absolute Monos (auto) 1.24 (0.0-1.3) Lymphocytes % 10.7 L (24.0-44.0) % Monocytes % 8.6 (0.0-12.0) % Eosinophils % 0.9 (0.00-5.0) % Basophils % 0.1 (0.0-0.4) % Absolute Granulocytes 11.51 H (1.4-6.9) Basophils # 0.01 (0-0.4) Sodium (137-145) mmol/L Potassium (3.5-5.1) mmol/L Chloride (98-107) mmol/L Carbon Dioxide (22-30) mmol/L Anion Gap (5-15) MEQ/L BUN (7-17) mg/dL Creatinine (0.52-1.04) mg/dL Estimated GFR ML/MIN Glucose (74-106) mg/dL Uric Acid (2.6-6.0) mg/dL Calcium (8.4-10.2) mg/dL Total Bilirubin (0.2-1.3) mg/dL AST (14-36) U/L ALT (0-35) U/L Alkaline Phosphatase (38-126) U/L Serum Total Protein (6.3-8.2) g/dL Albumin (3.5-5.0) g/dL Urine Color (YELLOW) Urine Appearance (CLEAR) Urine pH (5-6) Ur Specific [place] (1.005-1.025) Urine Protein (Negative) Urine Ketones (NEGATIVE) Urine Blood (0-5) Mychal/ul Urine Nitrite (NEGATIVE) Urine Bilirubin (NEGATIVE) Urine Urobilinogen (0-1) mg/dL Ur Leukocyte Esterase (NEGATIVE) Urine WBC (Auto) (0-5) /HPF Urine RBC (Auto) (0-2) /HPF U Epithel Cells (Auto) (FEW) /HPF Urine Bacteria (Auto) (NEGATIVE) /HPF Urine Mucus (Auto) (NEGATIVE) /HPF Urine Culture Reflexed (NO) Urine Glucose (NEGATIVE) mg/dL - Progress Progress: improved - Departure Referrals: MONET SANFORD [Primary Care Provider] -
--- NOTE | 2020-09-16 15:09 | ERPHSYRPT ---
- History of Present Illness Time Seen by Provider: 09/16/20 14:20 Historian: patient Patient Subjective Stated Complaint: Pt states that she has had a head ache for about 3 days and today her legs/feet/and hands have swollen, she also has pain in her medial upper chest Triage Nursing Assessment: Pt was brought to the ER by her dad, vitals wnl, rates pain 4/10, pulses normal, slight swelling of hands and feet, no difficulties with breathing, skin n/w/d, 27 weeks and 4 days gestation, preeclampsia with first around 27 weeks, doesn't appear to be in any distress Physician History: Patient is a 30-year-old female presents to our ED for evaluation of chest pain. Patient is G2, P1. She is currently 27 weeks and 4 days. Patient has had a headache for 3 days. Headache is's minimal at this time. Patient concerned with possible preeclampsia. She had preeclampsia with her 1st .. Patient's chest pain rated 4 out of 10. Chest pain is mostly middle upper chest. No associated nausea vomiting or diaphoresis. No rash. No trauma. No fever. Symptoms are mild to moderate in intensity. No specific worsening improving factors. Patient called her ELIGIBILITY MANAGER physician who advised she come to our ED for evaluation. Patient voices no other complaints at this time. Timing/Duration: day(s) (3 days), resolved prior to arrival Activities at Onset: none Quality: aching Location: substernal Chest Pain Radiation: no radiation Severity of Pain-Max: moderate Severity of Pain-Current: mild Modifying Factors: Improves With: nothing Associated Symptoms: headache, edema Prior Chest Pain/Cardiac Workup: no prior chest pain Nitro Today/Relief: no nitro taken today Aspirin Treatment Today: no aspirin today Allergies/Adverse Reactions: No Known Drug Allergies Allergy (Verified 09/16/20 14:25) Home Medications: Hydroxyzine HCl 25 mg [Atarax 25 mg] 25 mg PO DAILY 06/14/19 [History] Melatonin 20 mg PO QHS 06/14/19 [History] Vits W-Ca,Fe,FA(<1Mg) [] 2 each PO DAILY 06/14/19 [History] Verapamil HCl [Verapamil ER] 120 mg PO DAILY 06/11/20 [History] Aspirin EC 81 mg [Ecotrin 81 mg] 81 mg PO DAILY 09/16/20 [History] Hx Tetanus, Diphtheria Vaccination/Date Given: No Hx Influenza Vaccination/Date Given: Yes Hx Pneumococcal Vaccination/Date Given: No Travel Risk - International Travel Have you traveled outside of the country in past 3 weeks: No - Coronavirus Screening Are you exhibiting any of the following symptoms?: No Close contact with a COVID-19 positive Pt in past 14-21 Days: No - Review of Systems Constitutional: No Symptoms, No Fever, No Chills Eyes: No Symptoms Ears, Nose, & Throat: No Symptoms Respiratory: No Symptoms, No Cough, No Dyspnea Cardiac: No Symptoms, No Chest Pain, No Edema, No Syncope Abdominal/Gastrointestinal: No Symptoms, No Abdominal Pain, No Nausea, No Vomiting, No Diarrhea Genitourinary Symptoms: No Symptoms, No Dysuria Musculoskeletal: No Symptoms, No Back Pain, No Neck Pain Skin: No Symptoms, No Rash Neurological: No Symptoms, No Dizziness, No Focal Weakness, No Sensory Changes Psychological: No Symptoms Endocrine: No Symptoms Hematologic/Lymphatic: No Symptoms Immunological/Allergic: No Symptoms All Other Systems: Reviewed and Negative - Past Medical History Pertinent Past Medical History: Yes Neurological History: No Pertinent History ENT History: No Pertinent History Cardiac History: Hypertension Respiratory History: Asthma Endocrine Medical History: No Pertinent History Musculoskeletal History: No Pertinent History GI Medical History: GERD, Other History: No Pertinent History Psycho-Social History: Anxiety, Depression Female Reproductive Disorders: No Pertinent History Other Medical History: CONSTIPATION - Past Surgical History Past Surgical History: Yes Neuro Surgical History: No Pertinent History Cardiac: No Pertinent History Respiratory: No Pertinent History Gastrointestinal: No Pertinent History Genitourinary: No Pertinent History Musculoskeletal: No Pertinent History Female Surgical History: Section, Other Other Surgical History: excision of back cyst - Aug 2015, laporascopy apr 27 2018 - Social History Smoking Status: Never smoker Exposure to second hand smoke: No Drug Use: none Patient Lives Alone: No - Female History Hx Now: Yes - Nursing Vital Signs Nursing Vital Signs: Initial Vital Signs Pulse Rate 100 H 09/16/20 14:16 Blood Pressure 126/80 09/16/20 14:16 O2 Sat by Pulse Oximetry 98 09/16/20 14:16 Pain Scale Pain Intensity 2 - Physical Exam General Appearance: no apparent distress, alert Eye Exam: PERRL/EOMI, eyes nml inspection Ears, Nose, Throat Exam: normal ENT inspection, moist mucous membranes Neck Exam: normal inspection, non-tender, supple, full range of motion Respiratory Exam: normal breath sounds, lungs clear, No respiratory distress Cardiovascular Exam: regular rate/rhythm, normal heart sounds Gastrointestinal/Abdomen Exam: soft, No tenderness, No mass Back Exam: normal inspection, No CVA tenderness, No vertebral tenderness Extremity Exam: normal inspection, normal range of motion, other (negative homans sign bilaterally. NO obvious extremity swelling observed. ), No swelling Neurologic Exam: alert, oriented x 3, cooperative, normal mood/affect, sensation nml, No motor deficits Skin Exam: normal color, warm, dry SpO2 Interpretation: normal SpO2: 98 O2 Delivery: Room Air - Course Nursing assessment & vital signs reviewed: Yes EKG Interpreted by Me: RATE (107), Sinus Tach, NORMAL AXIS, NORMAL QRS - Radiology Exams Chest X-ray Interpretation: Teleradiologist Report (Portable chest again demonstrates normal heart lungs and bony thorax.) Ordered Tests: Active Orders 24 hr Category Date Time Status Japanese Interpreter STAT Care 09/16/20 14:22 Active EKG-ER Only STAT Care 09/16/20 14:21 Active IV Insertion STAT Care 09/16/20 14:21 Active Pulse Oximetry (ED) STAT Care 09/16/20 14:21 Active CHEST 1 VIEW (PORTABLE) Stat Exams 09/16/20 14:21 Completed CHEST WITH CONTRAST [CT] Stat Exams 09/16/20 18:12 Taken VENOUS BILATERAL EXTREMITY [US] Stat Exams 09/16/20 17:19 Taken CBC W DIFF Stat Lab 09/16/20 14:25 Completed CMP Stat Lab 09/16/20 14:25 Completed D-DIMER QUANTITATIVE Stat Lab 09/16/20 14:22 Completed TROPONIN Q3H Lab 09/16/20 14:25 Completed TROPONIN Q3H Lab 09/16/20 18:10 Completed TROPONIN Q3H Lab 09/16/20 20:30 Ordered TROPONIN Q3H Lab 09/16/20 23:30 Ordered TROPONIN Q3H Lab 09/17/20 02:30 Ordered UA W/RFX UR CULTURE Stat Lab 09/16/20 14:28 Completed Uric Acid Stat Lab 09/16/20 14:25 Completed Medication Summary Discontinued Medications Generic Name Dose Route Start Last Admin Trade Name Freq PRN Reason Stop Dose Admin Acetaminophen 975 mg 09/16/20 15:45 09/16/20 15:48 Tylenol 325 Mg PO 09/16/20 15:46 975 mg STAT ONE Administration Acetaminophen Confirm 09/16/20 15:47 Tylenol 325 Mg Administered 09/16/20 15:48 Dose 975 mg .ROUTE .STK-MED ONE Lab/Rad Data: Laboratory Result Diagrams 09/16/20 14:25 09/16/20 14:25 Laboratory Results 09/16/20 09/16/20 09/16/20 Range/Units 18:10 14:28 14:25 WBC (4.0-10.5) K/mm3 RBC (4.1-5.4) M/mm3 Hgb (12.0-16.0) gm/dl Hct (35-47) % MCV (78-100) fl MCH (26-32) pg MCHC (32-36) g/dl RDW (11.5-14.0) % Plt Count (150-450) K/mm3 MPV (7.5-11.0) fl Gran % (36.0-66.0) % Eos # (Auto) (0-0.5) Absolute Lymphs (auto) (1.0-4.6) Absolute Monos (auto) (0.0-1.3) Lymphocytes % (24.0-44.0) % Monocytes % (0.0-12.0) % Eosinophils % (0.00-5.0) % Basophils % (0.0-0.4) % Absolute Granulocytes (1.4-6.9) Basophils # (0-0.4) D-Dimer (215-500) ng/mL Sodium (137-145) mmol/L Potassium (3.5-5.1) mmol/L Chloride (98-107) mmol/L Carbon Dioxide (22-30) mmol/L Anion Gap (5-15) MEQ/L BUN (7-17) mg/dL Creatinine (0.52-1.04) mg/dL Estimated GFR ML/MIN Glucose (74-106) mg/dL Uric Acid 3.7 (2.6-6.0) mg/dL Calcium (8.4-10.2) mg/dL Total Bilirubin (0.2-1.3) mg/dL AST (14-36) U/L ALT (0-35) U/L Alkaline Phosphatase (38-126) U/L Troponin I < 0.012 (0.000-0.034) ng/mL Serum Total Protein (6.3-8.2) g/dL Albumin (3.5-5.0) g/dL Urine Color YELLOW (YELLOW) Urine Appearance SLIGHTLY CLOUDY (CLEAR) Urine pH 7.0 (5-6) Ur Specific [place] 1.011 (1.005-1.025) Urine Protein NEGATIVE (Negative) Urine Ketones NEGATIVE (NEGATIVE) Urine Blood NEGATIVE (0-5) Mychal/ul Urine Nitrite NEGATIVE (NEGATIVE) Urine Bilirubin NEGATIVE (NEGATIVE) Urine Urobilinogen NEGATIVE (0-1) mg/dL Ur Leukocyte Esterase NEGATIVE (NEGATIVE) Urine WBC (Auto) 3-5 (0-5) /HPF Urine RBC (Auto) NONE (0-2) /HPF U Epithel Cells (Auto) RARE (FEW) /HPF Urine Bacteria (Auto) FEW (NEGATIVE) /HPF Urine Mucus (Auto) SLIGHT (NEGATIVE) /HPF Urine Culture Reflexed NO (NO) Urine Glucose NEGATIVE (NEGATIVE) mg/dL 09/16/20 09/16/20 09/16/20 Range/Units 14:25 14:25 14:25 WBC 14.4 H (4.0-10.5) K/mm3 RBC 4.13 (4.1-5.4) M/mm3 Hgb 12.2 (12.0-16.0) gm/dl Hct 36.9 (35-47) % MCV 89.3 (78-100) fl MCH 29.5 (26-32) pg MCHC 33.1 (32-36) g/dl RDW 13.7 (11.5-14.0) % Plt Count 299 (150-450) K/mm3 MPV 9.3 (7.5-11.0) fl Gran % 79.7 H (36.0-66.0) % Eos # (Auto) 0.13 (0-0.5) Absolute Lymphs (auto) 1.54 (1.0-4.6) Absolute Monos (auto) 1.24 (0.0-1.3) Lymphocytes % 10.7 L (24.0-44.0) % Monocytes % 8.6 (0.0-12.0) % Eosinophils % 0.9 (0.00-5.0) % Basophils % 0.1 (0.0-0.4) % Absolute Granulocytes 11.51 H (1.4-6.9) Basophils # 0.01 (0-0.4) D-Dimer (215-500) ng/mL Sodium 135 L (137-145) mmol/L Potassium 4.0 (3.5-5.1) mmol/L Chloride 103 (98-107) mmol/L Carbon Dioxide 26 (22-30) mmol/L Anion Gap 10.3 (5-15) MEQ/L BUN 4 L (7-17) mg/dL Creatinine 0.51 L (0.52-1.04) mg/dL Estimated GFR > 60.0 ML/MIN Glucose 105 (74-106) mg/dL Uric Acid (2.6-6.0) mg/dL Calcium 9.5 (8.4-10.2) mg/dL Total Bilirubin 0.10 L (0.2-1.3) mg/dL AST 16 (14-36) U/L ALT 12 (0-35) U/L Alkaline Phosphatase 105 (38-126) U/L Troponin I < 0.012 (0.000-0.034) ng/mL Serum Total Protein 7.0 (6.3-8.2) g/dL Albumin 3.6 (3.5-5.0) g/dL Urine Color (YELLOW) Urine Appearance (CLEAR) Urine pH (5-6) Ur Specific [place] (1.005-1.025) Urine Protein (Negative) Urine Ketones (NEGATIVE) Urine Blood (0-5) Mychal/ul Urine Nitrite (NEGATIVE) Urine Bilirubin (NEGATIVE) Urine Urobilinogen (0-1) mg/dL Ur Leukocyte Esterase (NEGATIVE) Urine WBC (Auto) (0-5) /HPF Urine RBC (Auto) (0-2) /HPF U Epithel Cells (Auto) (FEW) /HPF Urine Bacteria (Auto) (NEGATIVE) /HPF Urine Mucus (Auto) (NEGATIVE) /HPF Urine Culture Reflexed (NO) Urine Glucose (NEGATIVE) mg/dL 09/16/20 Range/Units 14:22 WBC (4.0-10.5) K/mm3 RBC (4.1-5.4) M/mm3 Hgb (12.0-16.0) gm/dl Hct (35-47) % MCV (78-100) fl MCH (26-32) pg MCHC (32-36) g/dl RDW (11.5-14.0) % Plt Count (150-450) K/mm3 MPV (7.5-11.0) fl Gran % (36.0-66.0) % Eos # (Auto) (0-0.5) Absolute Lymphs (auto) (1.0-4.6) Absolute Monos (auto) (0.0-1.3) Lymphocytes % (24.0-44.0) % Monocytes % (0.0-12.0) % Eosinophils % (0.00-5.0) % Basophils % (0.0-0.4) % Absolute Granulocytes (1.4-6.9) Basophils # (0-0.4) D-Dimer 1211 H* (215-500) ng/mL Sodium (137-145) mmol/L Potassium (3.5-5.1) mmol/L Chloride (98-107) mmol/L Carbon Dioxide (22-30) mmol/L Anion Gap (5-15) MEQ/L BUN (7-17) mg/dL Creatinine (0.52-1.04) mg/dL Estimated GFR ML/MIN Glucose (74-106) mg/dL Uric Acid (2.6-6.0) mg/dL Calcium (8.4-10.2) mg/dL Total Bilirubin (0.2-1.3) mg/dL AST (14-36) U/L ALT (0-35) U/L Alkaline Phosphatase (38-126) U/L Troponin I (0.000-0.034) ng/mL Serum Total Protein (6.3-8.2) g/dL Albumin (3.5-5.0) g/dL Urine Color (YELLOW) Urine Appearance (CLEAR) Urine pH (5-6) Ur Specific [place] (1.005-1.025) Urine Protein (Negative) Urine Ketones (NEGATIVE) Urine Blood (0-5) Mychal/ul Urine Nitrite (NEGATIVE) Urine Bilirubin (NEGATIVE) Urine Urobilinogen (0-1) mg/dL Ur Leukocyte Esterase (NEGATIVE) Urine WBC (Auto) (0-5) /HPF Urine RBC (Auto) (0-2) /HPF U Epithel Cells (Auto) (FEW) /HPF Urine Bacteria (Auto) (NEGATIVE) /HPF Urine Mucus (Auto) (NEGATIVE) /HPF Urine Culture Reflexed (NO) Urine Glucose (NEGATIVE) mg/dL - Progress Progress: improved Air Movement: good Progress Note: Patient reassessed. She has no chest pain. Cardiac work-up essentially within normal limits. Troponin negative x2. D-dimer positive at 1200. Ultrasound bilateral lower extremity negative for DVT. Based on the years algorithm for pulmonary embolism in CT scanning to rule out PE indicated. Risks and benefits to fetus mother due to obtain a CT scan versus risks and benefits of not obtaining CT scan were discussed. Patient decided to move forward with a CT scan. This was discussed with patient's ELIGIBILITY MANAGER physician Dr. Pierce who also agreed with our plan. CT negative for PE. We will discharge patient home at this time. Patient to follow-up with her ELIGIBILITY MANAGER physician tomorrow to schedule a follow-up appointment sooner than the currently scheduled appointment. Patient voices no other complaints at this time. Will discharge home. 09/16/20 19:54 . Blood Culture(s) Obtained: No Antibiotics given: No Discussed with Dr.: Liam Will see patient in: other Counseled pt/family regarding: lab results, diagnosis, rad results - Departure Departure Disposition: Home Clinical Impression: Chest pain, Tachycardia, Elevated d-dimer Condition: Stable Critical Care Time: No Referrals: MONET SANFORD [Primary Care Provider] - Additional Instructions: Discharge/Care Plan BRADFORD BLACKMON was seen on 09/16/20 in the Emergency Room. The patient was counseled regarding Diagnosis,Lab results, Imaging studies, need for follow up and when to return to the Emergency Room. Prescriptions given: Discharge Note I have spoken with the patient and/or caregivers. I have explained the patient's condition, diagnosis and treatment plan based on the information available to me at this time. I have answered the patient's and/or caregiver's questions and addressed any concerns. The patient and/or caregivers have as good understanding of the patient's diagnosis, condition and treatment plan as can be expected at this point. The vital signs have been stable. The patient's condition is stable and appropriate for discharge from the emergency department. The patient will pursue further outpatient evaluation with the primary care physician or other designated or consulting physician as outlined in the discharge instructions. The patient and/or caregivers are agreeable to this plan of care and follow-up instructions have been explained in detail. The patient and/or caregivers have received these instruction. The patient/and or caregivers are aware that any significant change in condition or worsening of symptoms should prompt an immediate return to this or the closest emergency department or call 911.
[2020-09-16] MEDS ORDERED: TYLENOL 325 MG PO ONE (15:45)
[2020-09-16] MEDS ORDERED: TYLENOL 325 MG ONE (15:47)
[2020-09-16 19:02] VITALS: O2SAT 98
[2020-09-16 19:56] VITALS: BP 125/72; PULSE 104
--- NOTE | 2020-09-17 08:57 | XRAY ---
Indication: Bilateral leg swelling. 28 weeks . Two-dimensional sonogram and color Doppler imaging of the major venous vessels of the left and right leg was performed. Comparison: None No thrombus seen in the examined deep venous vessels of the left and right leg including greater saphenous vein. Veins demonstrate normal compressibility. Venous waveforms are normal with and without augmentation. Impression: Left and right legs negative for DVT. Comment: Preliminary report was given.
--- NOTE | 2020-09-17 09:01 | XRAY ---
Indication: Intermittent chest discomfort. Elevated d-dimer. 28 weeks . Multiple contiguous axial images obtained through the chest using 80 cc Isovue 370 contrast and PE protocol. Comparison: None Ordering clinician Dr. Nelson was made aware of IV contrast administration in this patient. He requested exam be performed. Patient consent also obtained. There is good opacification of the pulmonary arteries to include the lobar and segmental branches. No pulmonary embolus. Heart is not enlarged. Aorta is normal in course and caliber. No pathologic mediastinal/hilar lymphadenopathy. Lungs are inflated and clear. Bony thorax intact. Limited upper abdomen demonstrates incidental 2 cm left lobe hepatic hemangioma and 14 cm splenomegaly. Impression: 1. Negative pulmonary embolus. No acute cardiopulmonary abnormalities. 2. Incidental splenomegaly and hepatic hemangioma.
== END 2020-09-16 19:57 | disposition home or self-care (01) ==
LOC: ED 14:14
DX: R07.9 Chest pain, unspecified (principal); R00.0 Tachycardia, unspecified; R51.9 Headache, unspecified; R79.89 Other specified abnormal findings of blood chemistry; R60.9 Edema, unspecified; Z3A.27 27 weeks gestation of pregnancy; I10 Essential (primary) hypertension
CPT/HCPCS: 36000; 36415; 71045; 71260; 80053; 81001; 84484; 84550; 85025; 85379; 93005; 93041; 93970; 94760; 99284; A9270-GY

== ENCOUNTER 2020-09-26 08:30 | Observation (INO) | payer BC ==
[2020-09-26 10:31] LABS: Amphetamine,Urine NEGATIVE (NEGATIVE); Barbiturate,Urine NEGATIVE (NEGATIVE); Benzodiazepine,Urine NEGATIVE (NEGATIVE); Cocaine,Urine NEGATIVE (NEGATIVE); Methadone,Urine NEGATIVE (NEGATIVE); Opiate,Urine NEGATIVE (NEGATIVE); PCP,Urine NEGATIVE (NEGATIVE); THC,Urine NEGATIVE (NEGATIVE)
[2020-09-26 10:37] VITALS: BP 120/65; PULSE 106
[2020-09-26 10:55] LABS: Amourphous Crystal FEW /HPF (NEGATIVE); Appearance CLOUDY (CLEAR); Bacteria MANY /HPF (NEGATIVE); Bilirubin NEGATIVE (NEGATIVE); Blood NEGATIVE Ery/ul (0-5); Epithelial Cells RARE /HPF (FEW); Glucose 50 mg/dL (NEGATIVE); Granular Casts 0-2 /LPF (NEGATIVE); Ketones NEGATIVE (NEGATIVE); Leukocyte Esterase NEGATIVE (NEGATIVE); Mucus SLIGHT /HPF (NEGATIVE); Nitrite NEGATIVE (NEGATIVE); Protein,Urine Dip 30 (Negative); Specific Gravity 1.016 (1.005-1.025); Urobilinogen NEGATIVE mg/dL (0-1)
== END 2020-09-26 11:24 | disposition home or self-care (01) ==
LOC: LAB 08:30 → OB 09:32
PROVIDERS: ADMIT Obstetrics & Gynecology; ATTEND Obstetrics & Gynecology
DX: Z13.1 Encounter for screening for diabetes mellitus (principal)
CPT/HCPCS: 36415; 80307; 81001; 82951; 82952; 87086; G0378

== ENCOUNTER 2020-10-08 15:51 | Observation (INO) | payer BC ==
[2020-10-08 16:22] LABS: Hematocrit 36.3 % (35-47); Hemoglobin 12.1 gm/dl (12.0-16.0); Mean Cell Volume 88.3 fl (78-100); Mean Corpuscular Hemoglobin 29.4 pg (26-32); Mean Corpuscular Hgb Concent. 33.3 g/dl (32-36); Mean Platelet Volume 9.2 fl (7.5-11.0); Platelet Count 281 K/mm3 (150-450); Red Blood Count 4.11 M/mm3 (4.1-5.4); Red Cell Distribution Width 13.9 % (11.5-14.0); White Blood Count 15.7 K/mm3 (4.0-10.5)
[2020-10-08 16:26] LABS: Creatinine, Urine Random 34.3 mg/dl
[2020-10-08 16:30] LABS: ALBUMIN 3.7 g/dL (3.5-5.0); ALKALINE PHOSPHATASE 121 U/L (38-126); ANION GAP 11.2 MEQ/L (5-15); BLOOD UREA NITROGEN 4 mg/dL (7-17); CHLORIDE 105 mmol/L (98-107); Calcium 9.8 mg/dL (8.4-10.2); Carbon Dioxide 22 mmol/L (22-30); Creatinine 1 0.53 mg/dL (0.52-1.04); EST GLOMERULAR FILTRATION RATE > 60.0 ML/MIN; Glucose 102 mg/dL (74-106); Potassium 4.1 mmol/L (3.5-5.1); SGOT/AST 17 U/L (14-36); SGPT/ALT 13 U/L (0-35); SODIUM 134 mmol/L (137-145); Uric Acid 3.2 mg/dL (2.6-6.0)
[2020-10-08 17:46] VITALS: BP 110/73; PULSE 96
[2020-10-08 18:35] LABS: Eosinophil 3 % (0.00-3.0); Lymphocytes 15 % (24-44); Monocyte 3 % (0.0-12.0); Neutrophils 79 % (36.0-66.0); Platelet Estimate NORMAL (NORMAL); Total Cells Counted 100
== END 2020-10-08 17:23 | disposition home or self-care (01) ==
LOC: OB 15:51
PROVIDERS: ADMIT Obstetrics & Gynecology; ATTEND Obstetrics & Gynecology
DX: Z34.83 Encounter for supervision of other normal pregnancy, third trimester (principal); Z3A.30 30 weeks gestation of pregnancy
CPT/HCPCS: 36415; 80053; 81002; 82570; 84156; 84550; 85025; G0378

== ENCOUNTER 2020-10-15 09:35 | Observation (INO) | payer BC ==
[2020-10-15 10:22] LABS: Absolute Neutrophil Ct (ANC) 10.77 (1.4-6.9); BASOPHIL % 0.1 % (0.0-0.4); Basophil (Absolute #) 0.01 (0-0.4); Eosinophil % 0.8 % (0.00-5.0); Eosinophil (Absolute #) 0.11 (0-0.5); Hematocrit 36.4 % (35-47); Hemoglobin 11.8 gm/dl (12.0-16.0); Lymphocyte (Absolute #) 1.64 (1.0-4.6); Lymphocytes % 11.8 % (24.0-44.0); Mean Cell Volume 89.9 fl (78-100); Mean Corpuscular Hemoglobin 29.1 pg (26-32); Mean Corpuscular Hgb Concent. 32.4 g/dl (32-36); Mean Platelet Volume 9.1 fl (7.5-11.0); Monocyte (Absolute #) 1.34 (0.0-1.3); Monocytes % 9.7 % (0.0-12.0); Neutrophil % 77.6 % (36.0-66.0); Platelet Count 251 K/mm3 (150-450); Red Blood Count 4.05 M/mm3 (4.1-5.4); White Blood Count 13.9 K/mm3 (4.0-10.5)
[2020-10-15 10:28] LABS: Appearance SLIGHTLY CLOUDY (CLEAR); Bacteria RARE /HPF (NEGATIVE); Bilirubin NEGATIVE (NEGATIVE); Blood NEGATIVE Ery/ul (0-5); Epithelial Cells RARE /HPF (FEW); Glucose NEGATIVE (NEGATIVE); Ketones NEGATIVE (NEGATIVE); Leukocyte Esterase NEGATIVE (NEGATIVE); Mucus SLIGHT /HPF (NEGATIVE); Nitrite NEGATIVE (NEGATIVE); Protein,Urine Dip NEGATIVE (Negative); Specific Gravity 1.011 (1.005-1.025); Urobilinogen NEGATIVE mg/dL (0-1); WBC 0-2 /HPF (0-5)
[2020-10-15 10:43] LABS: ALBUMIN 3.4 g/dL (3.5-5.0); ALKALINE PHOSPHATASE 129 U/L (38-126); ANION GAP 10.9 MEQ/L (5-15); BLOOD UREA NITROGEN 5 mg/dL (7-17); CHLORIDE 104 mmol/L (98-107); Calcium 9.4 mg/dL (8.4-10.2); Carbon Dioxide 23 mmol/L (22-30); Creatinine 1 0.54 mg/dL (0.52-1.04); EST GLOMERULAR FILTRATION RATE > 60.0 ML/MIN; Glucose 93 mg/dL (74-106); Potassium 4.2 mmol/L (3.5-5.1); SGOT/AST 16 U/L (14-36); SGPT/ALT 12 U/L (0-35); SODIUM 134 mmol/L (137-145); Total Protein 6.7 g/dL (6.3-8.2)
[2020-10-15 11:16] VITALS: O2SAT 97
[2020-10-15 11:33] VITALS: BP 124/64; PULSE 100
== END 2020-10-15 11:40 | disposition home or self-care (01) ==
LOC: OB 09:35
PROVIDERS: ADMIT Obstetrics & Gynecology; ATTEND Obstetrics & Gynecology
DX: Z34.93 Encounter for supervision of normal pregnancy, unspecified, third trimester (principal); Z3A.31 31 weeks gestation of pregnancy
CPT/HCPCS: 36415; 80053; 81001; 82570; 84156; 84550; 85025

== ENCOUNTER 2020-10-20 15:43 | Observation (INO) | payer BC ==
[2020-10-20 16:37] LABS: Amphetamine,Urine NEGATIVE (NEGATIVE); Barbiturate,Urine NEGATIVE (NEGATIVE); Benzodiazepine,Urine NEGATIVE (NEGATIVE); Cocaine,Urine NEGATIVE (NEGATIVE); Methadone,Urine NEGATIVE (NEGATIVE); Opiate,Urine NEGATIVE (NEGATIVE); PCP,Urine NEGATIVE (NEGATIVE); THC,Urine NEGATIVE (NEGATIVE)
[2020-10-20 17:55] LABS: Appearance SLIGHTLY CLOUDY (CLEAR); Bacteria MANY /HPF (NEGATIVE); Bilirubin NEGATIVE (NEGATIVE); Blood NEGATIVE Ery/ul (0-5); Epithelial Cells RARE /HPF (FEW); Glucose >=500 mg/dL (NEGATIVE); Ketones NEGATIVE (NEGATIVE); Leukocyte Esterase NEGATIVE (NEGATIVE); Mucus SLIGHT /HPF (NEGATIVE); Nitrite NEGATIVE (NEGATIVE); Protein,Urine Dip NEGATIVE (Negative); RBC 0-2 /HPF (0-2); Specific Gravity 1.006 (1.005-1.025); Urobilinogen NEGATIVE mg/dL (0-1)
[2020-10-20 19:44] VITALS: BP 117/60; PULSE 103; O2SAT 97
== END 2020-10-20 19:00 | disposition home or self-care (01) ==
LOC: OB 15:43
PROVIDERS: ADMIT Obstetrics & Gynecology; ATTEND Obstetrics & Gynecology
DX: Z34.83 Encounter for supervision of other normal pregnancy, third trimester (principal); Z3A.32 32 weeks gestation of pregnancy
CPT/HCPCS: 59025; 80307; 81001; 82947; 87086; G0378

== ENCOUNTER 2020-10-30 18:36 | Observation (INO) | payer BC ==
[2020-10-30 19:46] LABS: Appearance SLIGHTLY CLOUDY (CLEAR); Bacteria FEW /HPF (NEGATIVE); Bilirubin NEGATIVE (NEGATIVE); Blood NEGATIVE Ery/ul (0-5); Epithelial Cells RARE /HPF (FEW); Glucose >=500 mg/dL (NEGATIVE); Ketones TRACE (NEGATIVE); Leukocyte Esterase NEGATIVE (NEGATIVE); Mucus SLIGHT /HPF (NEGATIVE); Nitrite NEGATIVE (NEGATIVE); Protein,Urine Dip NEGATIVE (Negative); Specific Gravity 1.012 (1.005-1.025); Urobilinogen NEGATIVE mg/dL (0-1)
[2020-10-30 19:49] LABS: Amphetamine,Urine NEGATIVE (NEGATIVE); Barbiturate,Urine NEGATIVE (NEGATIVE); Benzodiazepine,Urine NEGATIVE (NEGATIVE); Cocaine,Urine NEGATIVE (NEGATIVE); Methadone,Urine NEGATIVE (NEGATIVE); Opiate,Urine NEGATIVE (NEGATIVE); PCP,Urine NEGATIVE (NEGATIVE); THC,Urine NEGATIVE (NEGATIVE)
[2020-10-30] MEDS ORDERED: TYLENOL EXTRA STRENGTH 500 MG PO PRN (21:38)
[2020-10-30] MEDS ORDERED: TYLENOL EXTRA STRENGTH 500 MG ONE (21:42)
[2020-10-30 21:46] LABS: Creatinine, Urine Random 47.4 mg/dl
[2020-10-30 21:48] LABS: BASOPHIL % 0.1 % (0.0-0.4); Basophil (Absolute #) 0.01 (0-0.4); Eosinophil % 0.8 % (0.00-5.0); Hematocrit 38.6 % (35-47); Lymphocyte (Absolute #) 2.03 (1.0-4.6); Lymphocytes % 15.9 % (24.0-44.0); Mean Cell Volume 89.8 fl (78-100); Mean Corpuscular Hemoglobin 30.2 pg (26-32); Mean Corpuscular Hgb Concent. 33.7 g/dl (32-36); Mean Platelet Volume 9.2 fl (7.5-11.0); Monocyte (Absolute #) 1.22 (0.0-1.3); Monocytes % 9.6 % (0.0-12.0); Neutrophil % 73.6 % (36.0-66.0); Platelet Count 256 K/mm3 (150-450); Red Cell Distribution Width 14.4 % (11.5-14.0); White Blood Count 12.8 K/mm3 (4.0-10.5)
[2020-10-30 21:59] LABS: ALBUMIN 3.5 g/dL (3.5-5.0); ALKALINE PHOSPHATASE 135 U/L (38-126); ANION GAP 16.2 MEQ/L (5-15); BLOOD UREA NITROGEN 6 mg/dL (7-17); CHLORIDE 105 mmol/L (98-107); Calcium 9.4 mg/dL (8.4-10.2); Carbon Dioxide 18 mmol/L (22-30); Creatinine 1 0.47 mg/dL (0.52-1.04); EST GLOMERULAR FILTRATION RATE > 60.0 ML/MIN; Glucose 178 mg/dL (74-106); Potassium 3.9 mmol/L (3.5-5.1); SGOT/AST 20 U/L (14-36); SGPT/ALT 16 U/L (0-35); SODIUM 135 mmol/L (137-145); Total Protein 6.7 g/dL (6.3-8.2); Uric Acid 3.5 mg/dL (2.6-6.0)
[2020-10-30 22:49] VITALS: O2SAT 97
[2020-10-30 22:52] VITALS: BP 119/70; PULSE 104
== END 2020-10-30 22:35 | disposition home or self-care (01) ==
LOC: OB 18:36
PROVIDERS: ADMIT Family Medicine; ATTEND Family Medicine
DX: Z34.83 Encounter for supervision of other normal pregnancy, third trimester (principal); Z3A.33 33 weeks gestation of pregnancy
CPT/HCPCS: 36415; 59025; 80053; 80307; 81001; 82570; 82947; 83036; 84156; 84550; 85025; G0378; A9270-GY

== ENCOUNTER 2020-11-02 18:45 | Observation (INO) | payer BC ==
[2020-11-02 20:18] VITALS: O2SAT 99
[2020-11-02 20:26] LABS: Amourphous Crystal FEW /HPF (NEGATIVE); Amphetamine,Urine NEGATIVE (NEGATIVE); Appearance SLIGHTLY CLOUDY (CLEAR); Bacteria MODERATE /HPF (NEGATIVE); Barbiturate,Urine NEGATIVE (NEGATIVE); Benzodiazepine,Urine NEGATIVE (NEGATIVE); Bilirubin NEGATIVE (NEGATIVE); Blood NEGATIVE Ery/ul (0-5); Cocaine,Urine NEGATIVE (NEGATIVE); Epithelial Cells RARE /HPF (FEW); Glucose 50 mg/dL (NEGATIVE); Hyaline Casts 0-2 /LPF (0-2); Ketones NEGATIVE (NEGATIVE); Leukocyte Esterase NEGATIVE (NEGATIVE); Methadone,Urine NEGATIVE (NEGATIVE); Mucus SLIGHT /HPF (NEGATIVE); Nitrite NEGATIVE (NEGATIVE); Opiate,Urine NEGATIVE (NEGATIVE); PCP,Urine NEGATIVE (NEGATIVE); Protein,Urine Dip NEGATIVE (Negative); RBC 0-2 /HPF (0-2); THC,Urine NEGATIVE (NEGATIVE); Urobilinogen NEGATIVE mg/dL (0-1)
[2020-11-02 21:36] VITALS: BP 133/70; PULSE 101
== END 2020-11-02 21:15 | disposition home or self-care (01) ==
LOC: OB 18:45
PROVIDERS: ADMIT Obstetrics & Gynecology; ATTEND Obstetrics & Gynecology
DX: Z34.83 Encounter for supervision of other normal pregnancy, third trimester (principal); Z3A.34 34 weeks gestation of pregnancy
CPT/HCPCS: 59025; 80307; 81001; 82947; G0378

== ENCOUNTER 2020-11-05 09:58 | Observation (INO) | payer BC ==
[2020-11-05 10:39] LABS: Absolute Neutrophil Ct (ANC) 11.54 (1.4-6.9); BASOPHIL % 0.1 % (0.0-0.4); Basophil (Absolute #) 0.01 (0-0.4); Eosinophil % 0.6 % (0.00-5.0); Eosinophil (Absolute #) 0.09 (0-0.5); Hematocrit 36.4 % (35-47); Hemoglobin 12.4 gm/dl (12.0-16.0); Lymphocyte (Absolute #) 1.53 (1.0-4.6); Lymphocytes % 10.5 % (24.0-44.0); Mean Cell Volume 88.8 fl (78-100); Mean Corpuscular Hemoglobin 30.2 pg (26-32); Mean Corpuscular Hgb Concent. 34.1 g/dl (32-36); Mean Platelet Volume 9.4 fl (7.5-11.0); Monocyte (Absolute #) 1.39 (0.0-1.3); Monocytes % 9.5 % (0.0-12.0); Neutrophil % 79.3 % (36.0-66.0); Platelet Count 251 K/mm3 (150-450); Red Cell Distribution Width 14.6 % (11.5-14.0); White Blood Count 14.6 K/mm3 (4.0-10.5)
[2020-11-05 10:48] LABS: ALBUMIN 3.5 g/dL (3.5-5.0); ALKALINE PHOSPHATASE 156 U/L (38-126); ANION GAP 12.9 MEQ/L (5-15); BLOOD UREA NITROGEN 5 mg/dL (7-17); CHLORIDE 106 mmol/L (98-107); Calcium 9.6 mg/dL (8.4-10.2); Carbon Dioxide 21 mmol/L (22-30); Creatinine 1 0.48 mg/dL (0.52-1.04); Creatinine, Urine Random 85.4 mg/dl; EST GLOMERULAR FILTRATION RATE > 60.0 ML/MIN; Glucose 110 mg/dL (74-106); Potassium 4.1 mmol/L (3.5-5.1); SGOT/AST 20 U/L (14-36); SGPT/ALT 15 U/L (0-35); SODIUM 136 mmol/L (137-145); Total Protein 6.7 g/dL (6.3-8.2)
[2020-11-05 10:53] LABS: Appearance SLIGHTLY CLOUDY (CLEAR); Bacteria FEW /HPF (NEGATIVE); Bilirubin NEGATIVE (NEGATIVE); Blood NEGATIVE Ery/ul (0-5); Epithelial Cells RARE /HPF (FEW); Glucose NEGATIVE (NEGATIVE); Ketones NEGATIVE (NEGATIVE); Leukocyte Esterase NEGATIVE (NEGATIVE); Mucus SLIGHT /HPF (NEGATIVE); Nitrite NEGATIVE (NEGATIVE); Protein,Urine Dip 30 (Negative); RBC 0-2 /HPF (0-2); Specific Gravity 1.013 (1.005-1.025); Urobilinogen NEGATIVE mg/dL (0-1)
[2020-11-05 11:32] VITALS: BP 122/73; PULSE 100
== END 2020-11-05 11:55 | disposition home or self-care (01) ==
LOC: OB 09:58
PROVIDERS: ADMIT Obstetrics & Gynecology; ATTEND Obstetrics & Gynecology
DX: Z34.83 Encounter for supervision of other normal pregnancy, third trimester (principal); Z3A.34 34 weeks gestation of pregnancy
CPT/HCPCS: 36415; 59025; 80053; 81001; 82570; 84156; 84550; 85025; G0378

== ENCOUNTER 2020-11-11 17:17 | Observation (INO) | payer BC ==
[2020-11-11 19:17] VITALS: BP 119/77; PULSE 96; O2SAT 98
== END 2020-11-11 19:00 | disposition home or self-care (01) ==
LOC: OB 17:17
PROVIDERS: ADMIT Obstetrics & Gynecology; ATTEND Obstetrics & Gynecology
DX: Z34.83 Encounter for supervision of other normal pregnancy, third trimester (principal); Z3A.35 35 weeks gestation of pregnancy
CPT/HCPCS: G0378

== ENCOUNTER 2020-11-14 10:01 | Observation (INO) | payer BC ==
[2020-11-14 12:25] VITALS: BP 122/72; PULSE 87
== END 2020-11-14 11:30 | disposition home or self-care (01) ==
LOC: MED SURG 10:01
PROVIDERS: ADMIT Family Medicine; ATTEND Family Medicine
DX: Z34.83 Encounter for supervision of other normal pregnancy, third trimester (principal); Z3A.36 36 weeks gestation of pregnancy
CPT/HCPCS: 59025; G0378

== ENCOUNTER 2020-11-18 13:24 | Observation (INO) | payer BC ==
[2020-11-18 14:31] VITALS: PULSE 85; O2SAT 98
[2020-11-18 15:58] VITALS: BP 133/73
== END 2020-11-18 15:00 | disposition home or self-care (01) ==
LOC: MED SURG 13:24
PROVIDERS: ADMIT Obstetrics & Gynecology; ATTEND Obstetrics & Gynecology
DX: Z34.83 Encounter for supervision of other normal pregnancy, third trimester (principal); Z3A.36 36 weeks gestation of pregnancy
CPT/HCPCS: 59025; G0378

== ENCOUNTER 2020-11-25 12:00 | Observation (INO) | payer BC ==
[2020-11-25 15:21] LABS: Creatinine, Urine Random 95.8 mg/dl
[2020-11-25 16:42] VITALS: BP 145/86; PULSE 85; O2SAT 99
== END 2020-11-25 16:35 | disposition home or self-care (01) ==
LOC: OB 12:00
PROVIDERS: ADMIT Obstetrics & Gynecology; ATTEND Obstetrics & Gynecology
DX: Z34.83 Encounter for supervision of other normal pregnancy, third trimester (principal); Z3A.37 37 weeks gestation of pregnancy
CPT/HCPCS: 82570; 84156; G0378

== ENCOUNTER 2020-12-02 00:12 | Inpatient (IN) | payer BC ==
[2020-12-02] MEDS ORDERED: DEMEROL 50 MG IV PRN (00:38)
[2020-12-02 05:52] LABS: Hematocrit 39.1 % (35-47); Hemoglobin 13.3 gm/dl (12.0-16.0); Mean Cell Volume 90.3 fl (78-100); Mean Corpuscular Hemoglobin 30.7 pg (26-32); Platelet Count 253 K/mm3 (150-450); Red Blood Count 4.33 M/mm3 (4.1-5.4); Red Cell Distribution Width 14.3 % (11.5-14.0); White Blood Count 13.1 K/mm3 (4.0-10.5)
[2020-12-02] MEDS ORDERED: BICITRA 30 ML CUP ONE (05:53)
[2020-12-02 05:58] LABS: Appearance CLEAR (CLEAR); Bacteria RARE /HPF (NEGATIVE); Bilirubin NEGATIVE (NEGATIVE); Blood NEGATIVE Ery/ul (0-5); Epithelial Cells RARE /HPF (FEW); Glucose NEGATIVE (NEGATIVE); Ketones NEGATIVE (NEGATIVE); Leukocyte Esterase NEGATIVE (NEGATIVE); Mucus SLIGHT /HPF (NEGATIVE); Nitrite NEGATIVE (NEGATIVE); Protein,Urine Dip NEGATIVE (Negative); Urobilinogen NEGATIVE mg/dL (0-1)
[2020-12-02] MEDS ORDERED: CLINDAMYCIN-D5W 900 MG/50 ML*** 900 MG/50 ML BAG IV SCH (06:00)
[2020-12-02] MEDS: Lactated Ringers 1,000 ML IV SCH ×2 (06:00→06:34)
[2020-12-02 06:07] LABS: Amphetamine,Urine NEGATIVE (NEGATIVE); Barbiturate,Urine NEGATIVE (NEGATIVE); Benzodiazepine,Urine NEGATIVE (NEGATIVE); Cocaine,Urine NEGATIVE (NEGATIVE); Opiate,Urine NEGATIVE (NEGATIVE); PCP,Urine NEGATIVE (NEGATIVE); THC,Urine NEGATIVE (NEGATIVE)
[2020-12-02 06:10] LABS: PROTIME 11.3 SECONDS (9.95-12.35)
[2020-12-02 06:11] LABS: Methadone,Urine NEGATIVE (NEGATIVE)
[2020-12-02 06:12] LABS: PTT 34.1 SECONDS (25.3-37.0)
[2020-12-02] MEDS ORDERED: Pepcid 20 MG VIAL IV SCH (06:30)
[2020-12-02] MEDS ORDERED: SOD CITRATE-CITRIC ACID SOLN PO ONE (06:30)
[2020-12-02] MEDS ORDERED: Reglan 10 MG/2 ML IV SCH (06:30)
[2020-12-02] MEDS ORDERED: Lactated Ringers 1,000 ML IV ONE ×2 (06:32→07:12)
[2020-12-02 06:33] LABS: ABO TYPING A; RH TYPING POSITIVE
[2020-12-02 06:50] LABS: Antibody Screen NEGATIVE (NEGATIVE)
[2020-12-02] MEDS ORDERED: Astramorph-Pf 5 MG/10 ML ONE (07:17)
[2020-12-02] MEDS ORDERED: Pitocin 10 UNITS/ML ONE ×3 (07:19→09:16)
[2020-12-02] MEDS ORDERED: Narcan 0.4 MG/ML IV PRN (08:00)
[2020-12-02] MEDS ORDERED: KEFZOL 1 GM ONE (08:28)
[2020-12-02] MEDS ORDERED: BREVIBLOC 100 MG/10 ML IV ONE (08:31)
[2020-12-02] MEDS ORDERED: LOPRESSOR 5 MG/5 ML INJECTION IV ONE (08:45)
[2020-12-02] MEDS ORDERED: Versed 2 MG/2 ML Injection ONE (09:15)
[2020-12-02] MEDS ORDERED: Sodium Chloride 0.9% 1000 ML 1,000 ML ONE (09:16)
[2020-12-02] MEDS ORDERED: Zofran 4 MG/2 ML VIAL IV PRN (10:00)
[2020-12-02] MEDS ORDERED: CLARITIN 10 MG PO PRN (10:00)
[2020-12-02] MEDS ORDERED: Mylicon 80MG PO PRN (10:00)
[2020-12-02] MEDS ORDERED: Anucort-HC SUPPOSITORY PR PRN (10:00)
[2020-12-02] MEDS ORDERED: Nubain 10 MG/ML IV PRN (10:00)
[2020-12-02] MEDS ORDERED: BENADRYL 50 MG/ML IV PRN (10:00)
[2020-12-02] MEDS ORDERED: PERCOCET TABLET 5/325MG PO PRN (10:00)
[2020-12-02] MEDS ORDERED: TRANEXAMIC ACID 1000 MG/10 ML 1,000 MG in Sodium Chloride 0.9% 100 ML IVPB 100 ML IV ONE (10:00)
[2020-12-02] MEDS ORDERED: TYLENOL EXTRA STRENGTH 500 MG PO PRN (10:00)
[2020-12-02] MEDS ORDERED: Dulcolax 10 MG SUPP PR PRN (10:00)
[2020-12-02] MEDS ORDERED: LANSINOH 40 GM TOP PRN (10:00)
[2020-12-02] MEDS ORDERED: CORTISONE 1% CREAM TP PRN (10:00)
[2020-12-02] MEDS ORDERED: HOLD NARCOTIC ANALGESICS AND SEDATIVES X24 HR MC PRN (10:00)
[2020-12-02 10:15] LABS: Hematocrit 30.7 % (35-47); Hemoglobin 10.2 gm/dl (12.0-16.0); Mean Corpuscular Hemoglobin 30.9 pg (26-32); Mean Corpuscular Hgb Concent. 33.2 g/dl (32-36); Mean Platelet Volume 9.9 fl (7.5-11.0); Platelet Count 235 K/mm3 (150-450); Red Cell Distribution Width 14.1 % (11.5-14.0); White Blood Count 14.1 K/mm3 (4.0-10.5)
[2020-12-02 10:43] LABS: CROSS MATCH (PRBC) COMPATIBLE (COMPATIBLE)
[2020-12-02 10:53] LABS: Appearance CLEAR (CLEAR); Bilirubin NEGATIVE (NEGATIVE); Blood NEGATIVE Ery/ul (0-5); Glucose NEGATIVE (NEGATIVE); Ketones NEGATIVE (NEGATIVE); Leukocyte Esterase NEGATIVE (NEGATIVE); Mucus SLIGHT /HPF (NEGATIVE); Nitrite NEGATIVE (NEGATIVE); Protein,Urine Dip NEGATIVE (Negative); Urobilinogen NEGATIVE mg/dL (0-1); WBC 0-2 /HPF (0-5)
[2020-12-02 10:55] LABS: Bacteria FEW /HPF (NEGATIVE); Epithelial Cells RARE /HPF (FEW)
[2020-12-02] MEDS: Dextrose 5%-Lr IV Solution 1000 ML 1,000 ML IV SCH ×2 (11:30→18:38)
[2020-12-02] MEDS ORDERED: Colace 100 MG PO PRN (13:57)
[2020-12-02] MEDS ORDERED: MEDICATION INTERVENTION MC SCH (14:30)
[2020-12-02] MEDS: KEFZOL 1 GM** 3 G in Sodium Chloride 0.9% 50 ML 50 ML IV SCH (16:38)
[2020-12-02] MEDS: MOTRIN 400 MG PO PRN (16:50)
[2020-12-02 18:08] LABS: Absolute Neutrophil Ct (ANC) 15.02 (1.4-6.9); BASOPHIL % 0.1 % (0.0-0.4); Basophil (Absolute #) 0.02 (0-0.4); Eosinophil % 0.2 % (0.00-5.0); Eosinophil (Absolute #) 0.03 (0-0.5); Hematocrit 28.3 % (35-47); Hemoglobin 9.3 gm/dl (12.0-16.0); Lymphocyte (Absolute #) 1.53 (1.0-4.6); Lymphocytes % 8.5 % (24.0-44.0); Mean Cell Volume 93.1 fl (78-100); Mean Corpuscular Hemoglobin 30.6 pg (26-32); Mean Corpuscular Hgb Concent. 32.9 g/dl (32-36); Mean Platelet Volume 10.1 fl (7.5-11.0); Monocytes % 7.3 % (0.0-12.0); Neutrophil % 83.9 % (36.0-66.0); Platelet Count 234 K/mm3 (150-450); Red Blood Count 3.04 M/mm3 (4.1-5.4); Red Cell Distribution Width 14.2 % (11.5-14.0); White Blood Count 17.9 K/mm3 (4.0-10.5)
[2020-12-02] MEDS ORDERED: Compazine 10 MG/2 ML IV PRN (19:35)
[2020-12-02] MEDS ORDERED: MELATONIN 20 MG PO SCH (22:00)
[2020-12-02] MEDS ORDERED: ENOXAPARIN SODIUM SQ SCH (22:00)
[2020-12-02] MEDS: Colace 100 MG PO SCH ×2 (22:12→22:17)
[2020-12-02] MEDS: FERREX 150 PO SCH (22:17)
[2020-12-02] MEDS: Reglan 10 MG/2 ML IV SCH (22:18)
[2020-12-02] MEDS: ISOPTIN S.R. 240 MG PO SCH (22:18)
[2020-12-02] MEDS: ECOTRIN 81 MG PO SCH (22:19)
[2020-12-03] MEDS: KEFZOL 1 GM** 3 G in Sodium Chloride 0.9% 50 ML 50 ML IV SCH (00:53)
[2020-12-03] MEDS: Reglan 10 MG/2 ML IV SCH (00:57)
[2020-12-03] MEDS: MOTRIN 400 MG PO PRN ×3 (04:51→17:57)
[2020-12-03] MEDS: Dextrose 5%-Lr IV Solution 1000 ML 1,000 ML IV SCH ×2 (06:22→23:35)
--- NOTE | 2020-12-03 08:22 | PCM.NOTE ---
Date and Time: 12/03/20819 Subjective Assessment: pod 1 sp csection pt resting in bed and has not ambulated at this time. tolerating diet. vss afebrile abd; soft incision with dressing intact with minimal soiling uterus; firm lochia; mild hgb; 9.3 12/02/20 a/p sp csection chronic htn encouraged ambulation will start anticoagulating today with lovenox OBJECTIVE DATA Vital Signs: Vital Signs - 24 hr Pulse Resp BP Pulse Ox 12/03/20 05:00 98 12/03/20 03:00 99 12/02/20 19:00 100 12/02/20 18:00 100 H 18 100 12/02/20 17:00 100 H 18 100 12/02/20 16:00 100 12/02/20 15:00 100 12/02/20 14:15 101 H 18 113/64 98 12/02/20 14:00 98 12/02/20 13:25 106 H 18 97/52 98 12/02/20 13:00 98 12/02/20 12:00 103 H 18 124/61 98 12/02/20 11:40 103 H 18 124/61 100 12/02/20 11:25 96 H 20 105/59 100 12/02/20 11:15 96 H 20 97/55 100 12/02/20 11:00 100 12/02/20 10:45 92 H 22 116/55 100 Pain Assessment - Last Documented Pain Intensity 2 Pain Scale Used 0-10 Pain Scale Intake and Output: Intake & Output 11/30/20 12/01/20 12/02/20 12/03/20 11:59 11:59 11:59 11:59 Intake Total 1200 1200 Output Total 1000 2600 Balance 200 -1400 Weight 139.706 kg Lab Results: Lab Results-Last 24 Hours 12/02/20 12/02/20 12/02/20 Range/Units 05:40 05:40 08:21 WBC (4.0-10.5) K/mm3 RBC (4.1-5.4) M/mm3 Hgb (12.0-16.0) gm/dl Hct (35-47) % MCV (78-100) fl MCH (26-32) pg MCHC (32-36) g/dl RDW (11.5-14.0) % Plt Count (150-450) K/mm3 MPV (7.5-11.0) fl Gran % (36.0-66.0) % Eos # (Auto) (0-0.5) Absolute Lymphs (auto) (1.0-4.6) Absolute Monos (auto) (0.0-1.3) Lymphocytes % (24.0-44.0) % Monocytes % (0.0-12.0) % Eosinophils % (0.00-5.0) % Basophils % (0.0-0.4) % Absolute Granulocytes (1.4-6.9) Basophils # (0-0.4) Urine Color YELLOW (YELLOW) Urine Appearance CLEAR (CLEAR) Urine pH 8.0 (5-6) Ur Specific [place] 1.010 (1.005-1.025) Urine Protein NEGATIVE (Negative) Urine Ketones NEGATIVE (NEGATIVE) Urine Blood NEGATIVE (0-5) Mychal/ul Urine Nitrite NEGATIVE (NEGATIVE) Urine Bilirubin NEGATIVE (NEGATIVE) Urine Urobilinogen NEGATIVE (0-1) mg/dL Ur Leukocyte Esterase NEGATIVE (NEGATIVE) Urine WBC (Auto) 0-2 (0-5) /HPF Urine RBC (Auto) 3-5 (0-2) /HPF U Epithel Cells (Auto) RARE (FEW) /HPF Urine Bacteria (Auto) FEW (NEGATIVE) /HPF Urine Mucus (Auto) SLIGHT (NEGATIVE) /HPF Urine Glucose NEGATIVE (NEGATIVE) mg/dL ABO Group A Rh Factor POSITIVE Antibody Screen NEGATIVE (NEGATIVE) Crossmatch COMPATIBLE COMPATIBLE (COMPATIBLE) 12/02/20 12/02/20 Range/Units 10:11 17:55 WBC 14.1 H 17.9 H (4.0-10.5) K/mm3 RBC 3.30 L 3.04 L (4.1-5.4) M/mm3 Hgb 10.2 L D 9.3 L (12.0-16.0) gm/dl Hct 30.7 L 28.3 L (35-47) % MCV 93.0 93.1 (78-100) fl MCH 30.9 30.6 (26-32) pg MCHC 33.2 32.9 (32-36) g/dl RDW 14.1 H 14.2 H (11.5-14.0) % Plt Count 235 234 (150-450) K/mm3 MPV 9.9 10.1 (7.5-11.0) fl Gran % 83.9 H (36.0-66.0) % Eos # (Auto) 0.03 (0-0.5) Absolute Lymphs (auto) 1.53 (1.0-4.6) Absolute Monos (auto) 1.30 (0.0-1.3) Lymphocytes % 8.5 L (24.0-44.0) % Monocytes % 7.3 (0.0-12.0) % Eosinophils % 0.2 (0.00-5.0) % Basophils % 0.1 (0.0-0.4) % Absolute Granulocytes 15.02 H (1.4-6.9) Basophils # 0.02 (0-0.4) Urine Color (YELLOW) Urine Appearance (CLEAR) Urine pH (5-6) Ur Specific [place] (1.005-1.025) Urine Protein (Negative) Urine Ketones (NEGATIVE) Urine Blood (0-5) Mychal/ul Urine Nitrite (NEGATIVE) Urine Bilirubin (NEGATIVE) Urine Urobilinogen (0-1) mg/dL Ur Leukocyte Esterase (NEGATIVE) Urine WBC (Auto) (0-5) /HPF Urine RBC (Auto) (0-2) /HPF U Epithel Cells (Auto) (FEW) /HPF Urine Bacteria (Auto) (NEGATIVE) /HPF Urine Mucus (Auto) (NEGATIVE) /HPF Urine Glucose (NEGATIVE) mg/dL ABO Group Rh Factor Antibody Screen (NEGATIVE) Crossmatch (COMPATIBLE) Multi-Disciplinary Progress Notes: Multi-Disciplinary Progress Notes 12/02/20 09:31 Respiratory Note by Miladis Lucero RT PRESENT DURING . NO PROBLEMS NOTED. Initialized on 12/02/20 09:31 - END OF NOTE
[2020-12-03 08:39] LABS: Absolute Neutrophil Ct (ANC) 11.63 (1.4-6.9); BASOPHIL % 0.1 % (0.0-0.4); Basophil (Absolute #) 0.02 (0-0.4); Eosinophil % 0.6 % (0.00-5.0); Hemoglobin 8.1 gm/dl (12.0-16.0); Lymphocyte (Absolute #) 2.19 (1.0-4.6); Lymphocytes % 14.1 % (24.0-44.0); Mean Cell Volume 94.3 fl (78-100); Mean Corpuscular Hemoglobin 30.6 pg (26-32); Mean Corpuscular Hgb Concent. 32.4 g/dl (32-36); Mean Platelet Volume 9.6 fl (7.5-11.0); Monocyte (Absolute #) 1.62 (0.0-1.3); Monocytes % 10.4 % (0.0-12.0); Neutrophil % 74.8 % (36.0-66.0); Platelet Count 213 K/mm3 (150-450); Red Blood Count 2.65 M/mm3 (4.1-5.4); Red Cell Distribution Width 14.5 % (11.5-14.0); White Blood Count 15.6 K/mm3 (4.0-10.5)
[2020-12-03 10:00] LABS: ALBUMIN 2.4 g/dL (3.5-5.0); ALKALINE PHOSPHATASE 123 U/L (38-126); ANION GAP 8.3 MEQ/L (5-15); BLOOD UREA NITROGEN 6 mg/dL (7-17); CHLORIDE 105 mmol/L (98-107); Calcium 8.3 mg/dL (8.4-10.2); Carbon Dioxide 25 mmol/L (22-30); Creatinine 1 0.55 mg/dL (0.52-1.04); EST GLOMERULAR FILTRATION RATE > 60.0 ML/MIN; Glucose 86 mg/dL (74-106); Potassium 4.1 mmol/L (3.5-5.1); SGOT/AST 21 U/L (14-36); SGPT/ALT 13 U/L (0-35); SODIUM 134 mmol/L (137-145); Total Protein 4.9 g/dL (6.3-8.2)
[2020-12-03] MEDS ORDERED: NON-FORMULARY ITEM (Prenatal Vits W-Ca,Fe,Fa(<1mg) [Prenatal] 1 EACH) PO SCH (10:00)
[2020-12-03] MEDS ORDERED: NON-FORMULARY ITEM (Verapamil Hcl [Verapamil Er] 120 MG) PO SCH (10:00)
[2020-12-03] MEDS: THERAGRAN MULTIVITAMIN PO SCH (10:29)
[2020-12-03] MEDS: ISOPTIN S.R. 240 MG PO SCH (10:29)
[2020-12-03] MEDS: Colace 100 MG PO SCH ×2 (10:29→22:13)
[2020-12-03] MEDS: ATARAX 25 MG PO SCH (10:29)
[2020-12-03] MEDS: FERREX 150 PO SCH (10:29)
[2020-12-03] MEDS: ECOTRIN 81 MG PO SCH ×2 (10:29→22:58)
[2020-12-03] MEDS: Miralax Powder 17GM PACKET PO SCH (10:30)
[2020-12-03] MEDS: ENOXAPARIN SODIUM SQ SCH (10:31)
--- NOTE | 2020-12-03 10:41 | OP ---
SURGERY DATE/TIME: 12/02/2020811 PREOPERATIVE DIAGNOSES: 1) Intrauterine at 38 weeks and 4 days gestation with chronic hypertension, Class III obesity, and suspected macrosomia. 2) Multiparity desiring tubal sterilization. POSTOPERATIVE DIAGNOSES: 1) Intrauterine at 38 weeks and 4 days gestation with chronic hypertension, Class III obesity, and suspected macrosomia with uterine atony. 2) Multiparity desiring tubal sterilization. PROCEDURES: 1) Repeat section, low flap transverse uterine incision, Pfannenstiel skin incision. 2) Bilateral tubal sterilization. SURGEON: Laureano Pierce D.O. [employer] ADMINISTRATOR: Dr. Tanja Fragoso. ANESTHESIA: Spinal. ESTIMATED BLOOD LOSS: 3 liters. COMPLICATIONS: Uterine atony. INDICATIONS: The risks, benefits, indications and alternatives of the procedure were reviewed with the patient prior to procedure. The patient understood the risk of infection, bleeding, bowel injury, bladder injury, ureteral injury, possible future , ectopic that may be associated with this procedure, pelvic infection and clotting disorder. However, desires to have this procedure as a possible means to alleviate her current medical condition. DESCRIPTION OF PROCEDURE AND FINDINGS: At this point the patient is taken to the operating room where her spinal anesthesia was found to adequate. She was then prepared and draped in normal sterile fashion in the dorsal supine position with leftward tilt. A Pfannenstiel skin incision is made with a scalpel and carried through to the underlying layer of the fascia with a Bovie. The fascia was then incised in the midline and the incision extended laterally digitally. The superior aspect of the fascial incision was then grasped Bandar clamps elevated and the underlying rectus muscles dissected off bluntly. Attention is then turned to the inferior aspect of this incision which in similar fashion was grasped, tented up with Bandar clamps and the rectus muscles dissected off bluntly. The rectus muscles were then in the midline and the peritoneum identified, tented up and entered sharply with Metzenbaum scissors. The peritoneal incision was then extended superiorly and inferiorly with good visualization of the bladder. From this point the bladder blade was inserted and the lower uterine segment incised in transverse fashion with a scalpel. The uterine incision was then extended laterally digitally. The bladder blade was then removed and the 's head was delivered atraumatically and was noted to have nuchal cord x1 which was reduced. The nose and mouth were suctioned with bulb suction and the cord clamped and cut. The was then handed off to the awaiting nurses. The placenta was then removed manually. The uterus exteriorized and cleared of all clots and debris. The uterine incision was repaired with 1-0 chromic in running locked fashion. A second layer of the same suture was used to obtain excellent hemostasis. After closure of the second layer was obtained, the uterus appeared to be boggy and the uterus appeared to have hematoma at the incisional site where at this point an additional incision was made approximately 2 cm above the initial incision where another transverse was made and moderate to severe amount of clotted blood was noted and after the incision was opened it was noted that the lower uterine segment had continued to bleed. At this point a Fibrillar solution was placed on the lower uterine segment. After packing with the Fibrillar, there was minimal bleeding that was noted from this point. At this point the incision was then closed. The uterine incision was repaired with 1-0 chromic in running locked fashion. An additional second layer of the same suture was used to obtain excellent hemostasis. The uterus at this point the fallopian tube on the right was then grasped with a Arlington clamp and 3 cm segment of the tube was then ligated with free tie of 2-0 chromic suture and excised. Good hemostasis was noted. The same procedure was performed on the left side where the [place] clamp was used to grasp the tube approximately 4 cm from the corneal region and a 3 cm segment of the tube was then ligated with free tie of 2-0 chromic suture where again good hemostasis was noted. From this point the uterus was then returned to the abdomen. The gutters were cleared of all clots and the peritoneal muscle closed with 2-0 chromic suture in interrupted fashion. The fascia was re-approximated with 0 Vicryl in a running fashion. The subcutaneous layer was closed with 3-0 Vicryl and the skin was closed with INSORB eryn (absorbable eryn). The patient tolerated the procedure well. Sponge, lap, needle and instrument counts were correct x2. The patient was then taken to the recovery room in stable condition. The patient delivered a live baby girl at 0846 hours. 's 8 at 1 minute and 8 at 5 minutes. The weight of the baby was 10 pounds 3 ounces.
[2020-12-03 11:33] LABS: Slide Review 1 YES
[2020-12-03] MEDS: Venofer 100 MG/5 ML*** 300 MG in Sodium Chloride 0.9% 250 ML 250 ML IV SCH (13:10)
[2020-12-03 16:19] LABS: Absolute Neutrophil Ct (ANC) 10.11 (1.4-6.9); BASOPHIL % 0.2 % (0.0-0.4); Basophil (Absolute #) 0.03 (0-0.4); Eosinophil % 0.9 % (0.00-5.0); Eosinophil (Absolute #) 0.13 (0-0.5); Hematocrit 22.8 % (35-47); Hemoglobin 7.3 gm/dl (12.0-16.0); Lymphocyte (Absolute #) 2.55 (1.0-4.6); Lymphocytes % 17.7 % (24.0-44.0); Mean Corpuscular Hemoglobin 30.4 pg (26-32); Mean Platelet Volume 9.1 fl (7.5-11.0); Monocyte (Absolute #) 1.62 (0.0-1.3); Monocytes % 11.2 % (0.0-12.0); Platelet Count 207 K/mm3 (150-450); Red Cell Distribution Width 14.4 % (11.5-14.0); White Blood Count 14.4 K/mm3 (4.0-10.5)
[2020-12-03 18:23] LABS: Slide Review 1 YES
[2020-12-03] MEDS ORDERED: Sodium Chloride 0.9% 1000 ML 1,000 ML IV SCH (20:30)
[2020-12-03 20:49] VITALS: O2SAT 98
[2020-12-03] MEDS: NORCO 5/325 MG PO PRN (22:15)
[2020-12-04] MEDS: MOTRIN 400 MG PO PRN ×2 (01:37→14:24)
[2020-12-04 05:50] LABS: Absolute Neutrophil Ct (ANC) 9.98 (1.4-6.9); BASOPHIL % 0.2 % (0.0-0.4); Basophil (Absolute #) 0.03 (0-0.4); Eosinophil % 1.5 % (0.00-5.0); Eosinophil (Absolute #) 0.21 (0-0.5); Hematocrit 29.1 % (35-47); Hemoglobin 9.5 gm/dl (12.0-16.0); Lymphocyte (Absolute #) 2.29 (1.0-4.6); Lymphocytes % 16.3 % (24.0-44.0); Mean Cell Volume 95.4 fl (78-100); Mean Corpuscular Hemoglobin 31.1 pg (26-32); Mean Corpuscular Hgb Concent. 32.6 g/dl (32-36); Mean Platelet Volume 9.5 fl (7.5-11.0); Monocyte (Absolute #) 1.58 (0.0-1.3); Monocytes % 11.2 % (0.0-12.0); Neutrophil % 70.8 % (36.0-66.0); Platelet Count 232 K/mm3 (150-450); Red Blood Count 3.05 M/mm3 (4.1-5.4); Red Cell Distribution Width 15.1 % (11.5-14.0); White Blood Count 14.1 K/mm3 (4.0-10.5)
[2020-12-04] MEDS: NORCO 5/325 MG PO PRN (08:26)
[2020-12-04] MEDS: ATARAX 25 MG PO SCH (09:39)
[2020-12-04] MEDS: ISOPTIN S.R. 240 MG PO SCH (09:40)
[2020-12-04] MEDS: THERAGRAN MULTIVITAMIN PO SCH (09:40)
[2020-12-04] MEDS: FERREX 150 PO SCH (09:40)
[2020-12-04] MEDS: ENOXAPARIN SODIUM SQ SCH (09:40)
[2020-12-04] MEDS: ECOTRIN 81 MG PO SCH (09:40)
[2020-12-04] MEDS: Colace 100 MG PO SCH (09:40)
[2020-12-04] MEDS: Miralax Powder 17GM PACKET PO SCH (09:44)
--- NOTE | 2020-12-04 10:19 | PCM.NOTE ---
Date and Time: 12/04/20 1017 Subjective Assessment: pod 2 sp csection pt resting in bed and doing well, ambulating and tolerating diet. vss afebrile abd; soft incision with dressing intact dry with no soiling uterus; firm lochia; mild hgb; 9.5 a/p sp csection pod 2 with postop anemia pt transfused two units last night will repeat cbc at 1 pm today if hgb stable will dc home today and fu office in 1 wk OBJECTIVE DATA Vital Signs: Vital Signs - 24 hr Temp Pulse Resp BP Pulse Ox 12/04/20 02:00 98.4 F 106 H 19 120/73 98 12/04/20 01:45 98.4 F 106 H 20 120/73 98 12/03/20 20:00 97.8 F 101 H 19 122/60 98 12/03/20 14:00 103 H 18 112/62 Pain Assessment - Last Documented Pain Intensity [Anterior] 2 Pain Intensity 6 Pain Scale Used 0-10 Pain Scale Intake and Output: Intake & Output 12/01/20 12/02/20 12/03/20 12/04/20 11:59 11:59 11:59 11:59 Intake Total 1200 3160 3384 Output Total 1000 3600 Balance 200 -440 3384 Weight 139.706 kg Lab Results: Lab Results-Last 24 Hours 12/02/20 12/03/20 12/03/20 Range/Units 05:40 08:18 16:10 WBC 14.4 H (4.0-10.5) K/mm3 RBC 2.40 L (4.1-5.4) M/mm3 Hgb 7.3 L (12.0-16.0) gm/dl Hct 22.8 L (35-47) % MCV 95.0 (78-100) fl MCH 30.4 (26-32) pg MCHC 32.0 (32-36) g/dl RDW 14.4 H (11.5-14.0) % Plt Count 207 (150-450) K/mm3 MPV 9.1 (7.5-11.0) fl Gran % 70.0 H (36.0-66.0) % Eos # (Auto) 0.13 (0-0.5) Absolute Lymphs (auto) 2.55 (1.0-4.6) Absolute Monos (auto) 1.62 H (0.0-1.3) Lymphocytes % 17.7 L (24.0-44.0) % Monocytes % 11.2 (0.0-12.0) % Eosinophils % 0.9 (0.00-5.0) % Basophils % 0.2 (0.0-0.4) % Absolute Granulocytes 10.11 H (1.4-6.9) Basophils # 0.03 (0-0.4) Hep Bs Antigen Negative (Negative) Slides for Path Review YES YES 12/04/20 Range/Units 05:45 WBC 14.1 H (4.0-10.5) K/mm3 RBC 3.05 L (4.1-5.4) M/mm3 Hgb 9.5 L D (12.0-16.0) gm/dl Hct 29.1 L (35-47) % MCV 95.4 (78-100) fl MCH 31.1 (26-32) pg MCHC 32.6 (32-36) g/dl RDW 15.1 H (11.5-14.0) % Plt Count 232 (150-450) K/mm3 MPV 9.5 (7.5-11.0) fl Gran % 70.8 H (36.0-66.0) % Eos # (Auto) 0.21 (0-0.5) Absolute Lymphs (auto) 2.29 (1.0-4.6) Absolute Monos (auto) 1.58 H (0.0-1.3) Lymphocytes % 16.3 L (24.0-44.0) % Monocytes % 11.2 (0.0-12.0) % Eosinophils % 1.5 (0.00-5.0) % Basophils % 0.2 (0.0-0.4) % Absolute Granulocytes 9.98 H (1.4-6.9) Basophils # 0.03 (0-0.4) Hep Bs Antigen (Negative) Slides for Path Review
--- NOTE | 2020-12-04 10:23 | PCM.DS ---
Discharge Summary Date of Admission: 12/02/20 05:02 Admitting Physician: HEYDI MARTINEZ DO Consults: Consults on Case 12/02/20 06:00 Notify Physician OF ADMISSION 12/02/20 08:00 Notify Anesthesia Provider ROUTINE Primary Care Provider: MONET SANFORD Allergies Allergies miconazole [From Monistat 3] Allergy (Intermediate, Verified 11/18/20 14:36) Itching skin cleanser combination no.17 [From Monistat 3] Allergy (Intermediate, Verified 11/18/20 14:36) Itching Cephalosporins Allergy (Verified 12/02/20 05:17) Hospital Summary - Hospital Course Hospital Course: pod 2 sp csection pt admitted on december 02 for scheduled repeat csection secondary to chronic htn, class 3 obesity, and suspected macrosomia and underwent procedure without complication however did have uterine atony and ebl of 3 liters. during postop period pt did well able to ambulate however did have 2 units of prbc given for hgb of 7.3 and received iron transfusion on december 03. pt at this time with hgb of 9.5 and stable for discharge today. pt did receive daily lovenox and was instructed to take daily for the next 6 wks. pt was also given rx of norco upon discharge. all questions answered to her satisfaction and was advised to fu in office in 1 wk. - Vitals & Intake/Output Vital Signs: Vital Signs Temperature 98.4 F 12/04/20 02:00 Pulse Rate 106 H 12/04/20 02:00 Respiratory Rate 19 12/04/20 02:00 Blood Pressure 120/73 12/04/20 02:00 O2 Sat by Pulse Oximetry 98 12/04/20 02:00 Intake & Output: Intake & Output 12/01/20 12/02/20 12/03/20 12/04/20 11:59 11:59 11:59 11:59 Intake Total 1200 3160 3384 Output Total 1000 3600 Balance 200 -440 3384 Weight 139.706 kg - Lab Result Diagrams: 12/04/20 05:45 12/03/20 08:18 Lab Results-Last 24 Hrs: Lab Results-Last 24 Hours 12/02/20 12/03/20 12/03/20 Range/Units 05:40 08:18 16:10 WBC 14.4 H (4.0-10.5) K/mm3 RBC 2.40 L (4.1-5.4) M/mm3 Hgb 7.3 L (12.0-16.0) gm/dl Hct 22.8 L (35-47) % MCV 95.0 (78-100) fl MCH 30.4 (26-32) pg MCHC 32.0 (32-36) g/dl RDW 14.4 H (11.5-14.0) % Plt Count 207 (150-450) K/mm3 MPV 9.1 (7.5-11.0) fl Gran % 70.0 H (36.0-66.0) % Eos # (Auto) 0.13 (0-0.5) Absolute Lymphs (auto) 2.55 (1.0-4.6) Absolute Monos (auto) 1.62 H (0.0-1.3) Lymphocytes % 17.7 L (24.0-44.0) % Monocytes % 11.2 (0.0-12.0) % Eosinophils % 0.9 (0.00-5.0) % Basophils % 0.2 (0.0-0.4) % Absolute Granulocytes 10.11 H (1.4-6.9) Basophils # 0.03 (0-0.4) Hep Bs Antigen Negative (Negative) Slides for Path Review YES YES 12/04/20 Range/Units 05:45 WBC 14.1 H (4.0-10.5) K/mm3 RBC 3.05 L (4.1-5.4) M/mm3 Hgb 9.5 L D (12.0-16.0) gm/dl Hct 29.1 L (35-47) % MCV 95.4 (78-100) fl MCH 31.1 (26-32) pg MCHC 32.6 (32-36) g/dl RDW 15.1 H (11.5-14.0) % Plt Count 232 (150-450) K/mm3 MPV 9.5 (7.5-11.0) fl Gran % 70.8 H (36.0-66.0) % Eos # (Auto) 0.21 (0-0.5) Absolute Lymphs (auto) 2.29 (1.0-4.6) Absolute Monos (auto) 1.58 H (0.0-1.3) Lymphocytes % 16.3 L (24.0-44.0) % Monocytes % 11.2 (0.0-12.0) % Eosinophils % 1.5 (0.00-5.0) % Basophils % 0.2 (0.0-0.4) % Absolute Granulocytes 9.98 H (1.4-6.9) Basophils # 0.03 (0-0.4) Hep Bs Antigen (Negative) Slides for Path Review Micro Results-Entire Visit: Microbiology 12/02/20 08:21 Urine Culture - Final Catherized NO GROWTH - Procedures and Test Procedures and Tests throughout Hospitalization: Therapy Orders & Screens 12/02/20 09:32 Standby ROUTINE Comment: Diagnosis: VINAYAK REPEAT Final Diagnosis/Problem List - Final Discharge Diagnosis/Problem (1) delivery delivered Current Visit: Yes Status: Acute Code(s): O82 - ENCOUNTER FOR DELIVERY WITHOUT INDICATION (2) Chronic hypertension affecting Current Visit: Yes Status: Acute Code(s): O10.919 - UNSP PRE-EXISTING HTN COMP , UNSP TRIMESTER (3) macrosomia during in third trimester Current Visit: Yes Status: Acute Code(s): O36.63X0 - MATERNAL CARE FOR EXCESS GROWTH, THIRD TRIMESTER, UNSP - Discharge Disposition: Home, Self-Care Condition: Stable Prescriptions: No Action Hydroxyzine HCl 25 mg [Atarax 25 mg] 25 mg PO DAILY Vits W-Ca,Fe,FA(<1Mg) [] 1 each PO DAILY Melatonin 20 mg PO QHS Verapamil HCl [Verapamil ER] 120 mg PO DAILY Aspirin EC 81 mg [Ecotrin 81 mg] 81 mg PO BID Polyethylene Glycol 3350 17 gm [Miralax Powder 17GM PACKET] 17 g PO DAILY Docusate Sodium 100 mg [Colace 100 MG] 100 mg PO DAILY PRN PRN PRN Reason: Constipation Instructions: Pulmonary Embolism (Blood Clot in the Lungs), Deep Vein Thrombosis (Blood Clots in the Legs), Breast Care for the Nonbreastfeeding Woman, How to Prevent Blood Clots Follow up with: MONET SANFORD [Primary Care Provider] -
[2020-12-04 10:26] VITALS: BP 126/62; PULSE 113
--- NOTE | 2020-12-04 10:29 | PCM.DCORD ---
- Discharge Disposition: Home, Self-Care Condition: Stable Prescriptions: New Hydrocodone/Acetaminophen [Hydrocodone-Acetamin 5-325 mg] 1 each PO Q6HPRN PRN #20 tablet MDD 4 PRN Reason: Pain No Action Hydroxyzine HCl 25 mg [Atarax 25 mg] 25 mg PO DAILY Vits W-Ca,Fe,FA(<1Mg) [] 1 each PO DAILY Melatonin 20 mg PO QHS Verapamil HCl [Verapamil ER] 120 mg PO DAILY Aspirin EC 81 mg [Ecotrin 81 mg] 81 mg PO BID Polyethylene Glycol 3350 17 gm [Miralax Powder 17GM PACKET] 17 g PO DAILY Docusate Sodium 100 mg [Colace 100 MG] 100 mg PO DAILY PRN PRN PRN Reason: Constipation Instructions: Pulmonary Embolism (Blood Clot in the Lungs), Deep Vein Thrombosis (Blood Clots in the Legs), Breast Care for the Nonbreastfeeding Woman, How to Prevent Blood Clots Follow up with: MONET SANFORD [Primary Care Provider] -
[2020-12-04] MEDS: Venofer 100 MG/5 ML*** 300 MG in Sodium Chloride 0.9% 250 ML 250 ML IV SCH (12:26)
[2020-12-04 13:27] LABS: Hematocrit 29.5 % (35-47); Hemoglobin 9.7 gm/dl (12.0-16.0); Mean Cell Volume 95.5 fl (78-100); Mean Corpuscular Hemoglobin 31.4 pg (26-32); Mean Corpuscular Hgb Concent. 32.9 g/dl (32-36); Mean Platelet Volume 9.8 fl (7.5-11.0); Platelet Count 249 K/mm3 (150-450); Red Blood Count 3.09 M/mm3 (4.1-5.4); Red Cell Distribution Width 15.2 % (11.5-14.0); White Blood Count 15.7 K/mm3 (4.0-10.5)
[2020-12-04 14:38] LABS: Eosinophil 2 % (0.00-3.0); Hypochromia 1+; Lymphocytes 12 % (24-44); Monocyte 4 % (0.0-12.0); Neutrophils 82 % (36.0-66.0); Nucleated Red Blood Cell 1 %; Platelet Estimate NORMAL (NORMAL); Total Cells Counted 100
== END 2020-12-04 15:00 | disposition home or self-care (01) | DRG 785 ==
LOC: MED SURG 05:02
PROVIDERS: ADMIT Obstetrics & Gynecology; ATTEND Obstetrics & Gynecology
PROC: 10D00Z1 Extraction of Products of Conception, Low, Open Approach (ICD-10-PCS; principal; 2020-12-02)
PROC: 0UT70ZZ Resection of Bilateral Fallopian Tubes, Open Approach (ICD-10-PCS; 2020-12-02)
DX: O10.92 Unspecified pre-existing hypertension complicating childbirth (principal); O99.214 Obesity complicating childbirth; O66.2 Obstructed labor due to unusually large fetus; O62.2 Other uterine inertia; Z3A.38 38 weeks gestation of pregnancy; Z37.0 Single live birth; Z30.2 Encounter for sterilization
CPT/HCPCS: 36415; 36430; 58611; 59510; 62322; 80053; 80307; 81001; 85025; 85027; 85610; 85730; 86850; 86900; 86901; 86922; 87086; 87340; 88302; 94799; 96372; J0690; J1650; J1756; J2250; J2274; J2405; J2590; L0625; P9016; A9270-GY

== ENCOUNTER 2021-07-27 11:44 | Emergency (ER) | payer BC, SELFPAY ==
[2021-07-27] MEDS ORDERED: TORAdol 30 mg Injection IM ONE (12:11)
--- NOTE | 2021-07-27 12:15 | ERPHSYRPT ---
- History of Present Illness Historian: patient Exam Limitations: no limitations Patient Subjective Stated Complaint: PT states "Last night I had horrible lower abdominal pain and this morning my left side and lower back is killing me." Triage Nursing Assessment: Pt presented alert and oriented X 3, skin pwd. Pt ambulates with an upright steady gait, able to speak in clear full sentences. Pt in no apaprent respiratory distress. Timing/Duration: hour(s) (2 hours) Activities at Onset: rest Quality: aching, dullness Abdominal Pain Onset Location: flank (L flank) Pain Radiation: no radiation Severity of Pain-Max: moderate Severity of Pain-Current: moderate Modifying Factors: Improves With: nothing Associated Symptoms: back, No chest pain, No diaphoresis, No diarrhea, No fever/chills, No fatigue, No headache, No heartburn, No loss of appetite, No nausea, No neck pain, No rash, No shortness of breath, No syncope, No vomiting Previous symptoms: no prior history Hx Tetanus, Diphtheria Vaccination/Date Given: No Hx Influenza Vaccination/Date Given: Yes Hx Pneumococcal Vaccination/Date Given: No Immunizations Up to Date: Yes - History of Present Illness Physician History: 31 yo wf w L flank pain x 2 hours. Pain is 7/10, dull, and nothing makes better or worse. She denies N/V/D/dysuria/hematuria/melena/hematochezia. (KERRY ANTHONY) Allergies/Adverse Reactions: miconazole [From Monistat 3] Allergy (Intermediate, Verified 11/18/20 14:36) Itching skin cleanser combination no.17 [From Monistat 3] Allergy (Intermediate, Verified 11/18/20 14:36) Itching Cephalosporins Allergy (Verified 12/02/20 05:17) Home Medications: Hydroxyzine HCl 25 mg [Atarax 25 mg] 25 mg PO DAILY 06/14/19 [History] Melatonin 20 mg PO QHS 06/14/19 [History] Verapamil HCl [Verapamil ER] 120 mg PO DAILY 06/11/20 [History] Aspirin EC 81 mg [Ecotrin 81 mg] 81 mg PO BID 09/16/20 [History] Polyethylene Glycol 3350 17 gm [Miralax Powder 17GM PACKET] 17 g PO DAILY 11/02/20 [History] Docusate Sodium 100 mg [Colace 100 MG] 100 mg PO DAILY PRN PRN 12/02/20 [History] Sertraline HCl 50 mg [Zoloft 50 mg Tablet] 50 mg PO DAILY 07/27/21 [History] Travel Risk - International Travel Have you traveled outside of the country in past 3 weeks: No - Coronavirus Screening Are you exhibiting any of the following symptoms?: No Close contact with a COVID-19 positive Pt in past 14-21 Days: No - Vaccine Status Have you recieved a Covid-19 vaccination: Yes Media Reconciliation Specialist: Moderna - Vaccination Dates Date of 2cond Vaccination (if applicable): 12/2020 - Review of Systems Constitutional: No Symptoms Eyes: No Symptoms Ears, Nose, & Throat: No Symptoms Respiratory: No Symptoms Cardiac: No Symptoms Abdominal/Gastrointestinal: No Nausea, No Vomiting, No Diarrhea, No Constipation, No Hematemesis, No Hematochezia, No Melena, No Dysphagia, No Appetite Changes Genitourinary Symptoms: No Symptoms Musculoskeletal: No Symptoms Skin: No Symptoms Neurological: No Symptoms Psychological: No Symptoms Endocrine: No Symptoms Hematologic/Lymphatic: No Symptoms - Past Medical History Pertinent Past Medical History: Yes Neurological History: Migraines ENT History: No Pertinent History Cardiac History: Hypertension Respiratory History: Asthma Endocrine Medical History: No Pertinent History Musculoskeletal History: No Pertinent History GI Medical History: GERD, Other History: No Pertinent History Psycho-Social History: Anxiety, Depression Female Reproductive Disorders: No Pertinent History Other Medical History: CONSTIPATION. - Past Surgical History Past Surgical History: Yes Neuro Surgical History: No Pertinent History Cardiac: No Pertinent History Respiratory: No Pertinent History Gastrointestinal: No Pertinent History Genitourinary: No Pertinent History Musculoskeletal: No Pertinent History Female Surgical History: Section, Other Other Surgical History: excision of back cyst - Aug 2015, laporascopy, apr 27 2018. tubal - Social History Smoking Status: Never smoker Exposure to second hand smoke: No Drug Use: none Patient Lives Alone: No Significant Family History: no pertinent family hx - Female History Hx Last Menstrual Period: 07/09/2021 Hx Now: (tubal) - Physical Exam General Appearance: no apparent distress Eye Exam: PERRL/EOMI, eyes nml inspection Ears, Nose, Throat Exam: normal ENT inspection, TMs normal, pharynx normal, moist mucous membranes Neck Exam: normal inspection, non-tender, supple, full range of motion, No meningismus, No mass, No Brudzinski, No Kernig's Respiratory Exam: normal breath sounds, lungs clear, airway intact Cardiovascular Exam: regular rate/rhythm, normal heart sounds, normal peripheral pulses, No murmur Gastrointestinal/Abdomen Exam: soft, normal bowel sounds, tenderness (L flank ttp) Back Exam: CVA tenderness (Mild L) Extremity Exam: normal inspection, normal range of motion Neurologic Exam: alert, oriented x 3, cooperative, access clinician II-XII nml as tested, normal mood/affect, nml cerebellar function, nml station & gait, sensation nml, No motor deficits, No sensory deficit Skin Exam: normal color, warm, dry Lymphatic Exam: adenopathy SpO2 Interpretation: normal SpO2: 100 O2 Delivery: Room Air - Nursing Vital Signs Nursing Vital Signs: Initial Vital Signs Temperature 97.2 F 07/27/21 11:57 Pulse Rate 77 07/27/21 11:57 Respiratory Rate 20 07/27/21 11:57 Blood Pressure 137/87 07/27/21 11:57 O2 Sat by Pulse Oximetry 100 07/27/21 11:57 Pain Scale Pain Intensity 4 WNL (KERRY ANTHONY) - CT Exams Abdomen/Pelvis CT Interpretation: Discussed w/radiologist (Nothing acute per Rad) Ordered Tests: Active Orders 24 hr Category Date Time Status ABDOMEN AND PELVIS W/0 CONTRAS [CT] Stat Exams 07/27/21 13:04 Completed HCG,QUALITATIVE URINE Stat Lab 07/27/21 12:10 Completed UA W/RFX UR CULTURE Stat Lab 07/27/21 12:26 Completed Medication Summary Discontinued Medications Generic Name Dose Route Start Last Admin Trade Name Freq PRN Reason Stop Dose Admin Ketorolac Tromethamine 30 mg 07/27/21 12:11 07/27/21 12:20 Ketorolac Tromethamine 30 Mg/Ml Inj IM 07/27/21 12:12 30 mg STAT ONE Administration Ketorolac Tromethamine Confirm 07/27/21 12:17 Ketorolac Tromethamine 30 Mg/Ml Inj Administered 07/27/21 12:18 Dose 30 mg .ROUTE .STK-MED ONE Lab/Rad Data: Laboratory Results 07/27/21 07/27/21 Range/Units 12:26 12:10 Urine Color YELLOW (YELLOW) Urine Appearance SLIGHTLY CLOUDY (CLEAR) Urine pH 5.0 (5-6) Ur Specific Lyles 1.020 (1.005-1.025) Urine Protein NEGATIVE (Negative) Urine Ketones NEGATIVE (NEGATIVE) Urine Blood MODERATE (0-5) Mychal/ul Urine Nitrite NEGATIVE (NEGATIVE) Urine Bilirubin NEGATIVE (NEGATIVE) Urine Urobilinogen NEGATIVE (0-1) mg/dL Ur Leukocyte Esterase NEGATIVE (NEGATIVE) Urine WBC (Auto) 3-5 (0-5) /HPF Urine RBC (Auto) 0-2 (0-2) /HPF U Epithel Cells (Auto) FEW (FEW) /HPF Urine Bacteria (Auto) RARE (NEGATIVE) /HPF Urine Mucus (Auto) SLIGHT (NEGATIVE) /HPF Urine Culture Reflexed NO (NO) Urine Glucose NEGATIVE (NEGATIVE) mg/dL Urine HCG, Qual NEGATIVE (Negative) - Progress Progress: improved Counseled pt/family regarding: lab results, diagnosis, need for follow-up, rad results - Progress Progress Note: 07/27/21 13:54 Pain improved w 30mg IM Toradol (KERRY ANTHONY) - Departure Departure Disposition: Home Critical Care Time: No - Departure Clinical Impression: Flank pain Condition: Stable Referrals: MONET JACOBS [Primary Care Provider] - Follow up/PCP as directed Instructions: Flank Pain Additional Instructions: Follow up with your family MD Return to ER for increasing pain or temperature greater than 100.5
[2021-07-27] MEDS ORDERED: TORAdol 30 mg Injection ONE (12:17)
[2021-07-27 12:33] LABS: Appearance SLIGHTLY CLOUDY (CLEAR); Bacteria RARE /HPF (NEGATIVE); Bilirubin NEGATIVE (NEGATIVE); Blood MODERATE Ery/ul (0-5); Epithelial Cells FEW /HPF (FEW); Glucose NEGATIVE (NEGATIVE); Ketones NEGATIVE (NEGATIVE); Leukocyte Esterase NEGATIVE (NEGATIVE); Mucus SLIGHT /HPF (NEGATIVE); Nitrite NEGATIVE (NEGATIVE); Protein,Urine Dip NEGATIVE (Negative); RBC 0-2 /HPF (0-2); Urobilinogen NEGATIVE mg/dL (0-1)
[2021-07-27 13:12] VITALS: BP 138/98; PULSE 68
--- NOTE | 2021-07-27 13:34 | XRAY ---
Indication: Left flank pain. Multiple contiguous axial images obtained through the abdomen and pelvis without contrast using renal stone protocol. Comparison: July 17, 2014. Lung bases again demonstrates left lower lobe calcified granuloma. No infiltrate or effusion. Heart not enlarged. No renal calculus or evidence for obstructive uropathy in either system. Noncontrasted stomach and bowel loops appear nonobstructed with normal appendix. Mild diffuse scattered colonic fecal debris. No free fluid/air. Remaining liver, gallbladder, pancreas, spleen, adrenal glands, kidneys, ureters, bladder, uterus, and aorta appear unremarkable for noncontrast exam. Osseous structures intact. No ventral or inguinal hernias. Impression: 1. Continued negative renal calculus or evidence for obstructive uropathy. 2. Mild diffuse fecal stasis. 3. Remaining CT abdomen/pelvis without contrast exam is again negative.
[2021-07-27 13:57] VITALS: O2SAT 100
== END 2021-07-27 14:20 | disposition home or self-care (01) ==
LOC: ED 11:44
DX: R10.32 Left lower quadrant pain (principal); I10 Essential (primary) hypertension
CPT/HCPCS: 74176; 81001; 84703; 96372; 99284; J1885

== ENCOUNTER 2021-08-16 12:37 | Emergency (ER) | payer BC ==
[2021-08-16] MEDS ORDERED: Sodium Chloride 0.9% 1000 ML 1,000 ML IV STA (13:06)
[2021-08-16] MEDS ORDERED: solu-MEDROL 125 MG, Sterile H2O 10 ml 2 ML IV ONE ×2 (13:06)
[2021-08-16] MEDS ORDERED: DUONEB 0.5-3 MG/3 ml Neb IH ONE ×2 (13:06→13:07)
[2021-08-16 13:17] VITALS: O2SAT 98
[2021-08-16 13:50] LABS: Absolute Neutrophil Ct (ANC) 8.28 (1.4-6.9); Basophil (Absolute #) 0.02 (0-0.4); Eosinophil % 0.8 % (0.00-5.0); Hematocrit 45.4 % (35-47); Lymphocyte (Absolute #) 2.65 (1.0-4.6); Lymphocytes % 20.6 % (24.0-44.0); Mean Cell Volume 85.7 fl (78-100); Mean Corpuscular Hemoglobin 28.3 pg (26-32); Mean Platelet Volume 9.2 fl (7.5-11.0); Monocyte (Absolute #) 1.79 (0.0-1.3); Monocytes % 13.9 % (0.0-12.0); Neutrophil % 64.5 % (36.0-66.0); Platelet Count 375 K/mm3 (150-450); Red Cell Distribution Width 13.2 % (11.5-14.0); White Blood Count 12.8 K/mm3 (4.0-10.5)
[2021-08-16 13:51] LABS: Appearance SLIGHTLY CLOUDY (CLEAR); Bacteria RARE /HPF (NEGATIVE); Bilirubin NEGATIVE (NEGATIVE); Blood SMALL Ery/ul (0-5); Epithelial Cells RARE /HPF (FEW); Glucose NEGATIVE (NEGATIVE); Ketones NEGATIVE (NEGATIVE); Leukocyte Esterase NEGATIVE (NEGATIVE); Mucus SLIGHT /HPF (NEGATIVE); Nitrite NEGATIVE (NEGATIVE); Protein,Urine Dip NEGATIVE (Negative); RBC 0-2 /HPF (0-2); Urobilinogen NEGATIVE mg/dL (0-1)
[2021-08-16] MEDS ORDERED: Magnesium 1 Gm / 100 Ml D5W*** 100 ML IV ONE ×2 (13:55→14:33)
[2021-08-16] MEDS ORDERED: Sodium Chloride 0.9% 1000 ML 1,000 ML ONE (13:55)
[2021-08-16 13:57] LABS: ALBUMIN 4.5 g/dL (3.5-5.0); ALKALINE PHOSPHATASE 118 U/L (38-126); ANION GAP 13.2 MEQ/L (5-15); BLOOD UREA NITROGEN 16 mg/dL (7-17); CHLORIDE 102 mmol/L (98-107); Calcium 9.3 mg/dL (8.4-10.2); Carbon Dioxide 27 mmol/L (22-30); Creatinine 1 0.77 mg/dL (0.52-1.04); EST GLOMERULAR FILTRATION RATE > 60.0 ML/MIN; Glucose 70 mg/dL (74-106); Potassium 3.7 mmol/L (3.5-5.1); SGOT/AST 21 U/L (14-36); SGPT/ALT 29 U/L (0-35); SODIUM 139 mmol/L (137-145); Total Protein 7.8 g/dL (6.3-8.2)
[2021-08-16] MEDS: Magnesium 1 Gm / 100 Ml D5W*** 100 ML IV SCH ×2 (13:59→14:33)
[2021-08-16 14:06] VITALS: BP 123/80; PULSE 77
--- NOTE | 2021-08-16 14:59 | ERPHSYRPT ---
- History of Present Illness Time Seen by Provider: 08/16/21 12:55 Source: patient Exam Limitations: no limitations Patient Subjective Stated Complaint: Pt c/o of cough, headache, congestion for the past 7 days Triage Nursing Assessment: Pt brought self to the ER, vitals wnl, rates pain 6/10, productive cough sometimes with yellowish mucus, chest pain from coughing, congestion in chest and below eyes, symptoms began a week ago, covid positive, doesn't appear to be in any distress Physician History: Patient had a positive COVID test last week. Has a history of asthma. Feels like she is having an asthma exacerbation. No falls no trauma. No fever here. Patient has been taking albuterol at home. She has not been taking any steroids. She is not on any inhaled steroids. She has not had any outpatient monoclonal antibody. She has no chest pain, signs or symptoms of aortic dissection or PE. Timing/Duration: today Severity: moderate Modifying Factors: Improves With: medication Associated Symptoms: denies symptoms Allergies/Adverse Reactions: miconazole [From Monistat 3] Allergy (Intermediate, Verified 08/16/21 13:16) Itching skin cleanser combination no.17 [From Monistat 3] Allergy (Intermediate, Verified 08/16/21 13:16) Itching Cephalosporins Allergy (Verified 08/16/21 13:16) Home Medications: Hydroxyzine HCl 25 mg [Atarax 25 mg] 25 mg PO TID 06/14/19 [History] Melatonin 10 mg PO QHS 06/14/19 [History] Verapamil HCl [Verapamil ER] 120 mg PO DAILY 06/11/20 [History] Sertraline HCl 50 mg [Zoloft 50 mg Tablet] 50 mg PO DAILY 07/27/21 [History] Hx Tetanus, Diphtheria Vaccination/Date Given: No Hx Influenza Vaccination/Date Given: Yes Hx Pneumococcal Vaccination/Date Given: No Travel Risk - International Travel Have you traveled outside of the country in past 3 weeks: No - Coronavirus Screening Are you exhibiting any of the following symptoms?: Yes Symptoms: Cough: New Onset, Shortness of Breath, Headaches/Body Aches/Fatigue Close contact with a COVID-19 positive Pt in past 14-21 Days: No - Vaccine Status Have you recieved a Covid-19 vaccination: Yes Hospital Cook: Moderna - Vaccination Dates Date of 2cond Vaccination (if applicable): 12/2020 - Review of Systems Constitutional: No Fever, No Chills Eyes: No Symptoms Ears, Nose, & Throat: No Symptoms Respiratory: Dyspnea, Wheezing, Other, No Cough Cardiac: No Chest Pain, No Edema, No Syncope Abdominal/Gastrointestinal: No Abdominal Pain, No Nausea, No Vomiting, No D iarrhea Genitourinary Symptoms: No Dysuria Musculoskeletal: No Back Pain, No Neck Pain Skin: No Rash Neurological: No Dizziness, No Focal Weakness, No Sensory Changes Psychological: No Symptoms Endocrine: No Symptoms All Other Systems: Reviewed and Negative - Past Medical History Pertinent Past Medical History: Yes Neurological History: Migraines ENT History: No Pertinent History Cardiac History: Hypertension Respiratory History: Asthma Endocrine Medical History: No Pertinent History Musculoskeletal History: No Pertinent History GI Medical History: GERD, Other History: No Pertinent History Psycho-Social History: Anxiety, Depression Female Reproductive Disorders: No Pertinent History Other Medical History: CONSTIPATION. - Past Surgical History Past Surgical History: Yes Neuro Surgical History: No Pertinent History Cardiac: No Pertinent History Respiratory: No Pertinent History Gastrointestinal: No Pertinent History Genitourinary: No Pertinent History Musculoskeletal: No Pertinent History Female Surgical History: Section, Tubal Ligation, Other Other Surgical History: excision of back cyst - Aug 2015, laporascopy, apr 27 2018. tubal - Social History Smoking Status: Never smoker Exposure to second hand smoke: No Drug Use: none Patient Lives Alone: No Significant Family History: no pertinent family hx - Female History Hx Now: No - Nursing Vital Signs Nursing Vital Signs: Initial Vital Signs Pulse Rate 85 08/16/21 13:05 Blood Pressure 132/73 08/16/21 13:05 O2 Sat by Pulse Oximetry 98 08/16/21 13:05 Pain Scale Pain Intensity 6 - Physical Exam General Appearance: no apparent distress, alert Eye Exam: PERRL/EOMI, eyes nml inspection Ears, Nose, Throat Exam: normal ENT inspection, TMs normal, pharynx normal, moist mucous membranes Neck Exam: normal inspection, non-tender, supple, full range of motion Respiratory Exam: wheezing, other (Mild end expiratory wheezing), No respiratory distress Cardiovascular Exam: regular rate/rhythm, normal heart sounds, normal peripheral pulses Gastrointestinal/Abdomen Exam: soft, normal bowel sounds, No tenderness, No mass Back Exam: normal inspection, normal range of motion, No CVA tenderness, No vertebral tenderness Extremity Exam: normal inspection, normal range of motion, pelvis stable Neurologic Exam: alert, oriented x 3, cooperative, normal mood/affect, nml cerebellar function, nml station & gait, sensation nml, No motor deficits Skin Exam: normal color, warm, dry, No rash Lymphatic Exam: No adenopathy SpO2: 98 - Course Nursing assessment & vital signs reviewed: Yes EKG Interpreted by Me: Sinus Rhythm Ordered Tests: Active Orders 24 hr Category Date Time Status EKG-ER Only STAT Care 08/16/21 13:06 Active IV Insertion STAT Care 08/16/21 13:06 Active CHEST 1 VIEW (PORTABLE) Stat Exams 08/16/21 13:13 Taken CBC W DIFF Stat Lab 08/16/21 13:39 Completed CMP Stat Lab 08/16/21 13:40 Completed HCG QUALITATIVE,SERUM Stat Lab 08/16/21 13:39 Completed TROPONIN Q3H Lab 08/16/21 13:39 Completed TROPONIN Q3H Lab 08/16/21 16:15 Ordered TROPONIN Q3H Lab 08/16/21 19:15 Ordered TROPONIN Q3H Lab 08/16/21 22:15 Ordered TROPONIN Q3H Lab 08/17/21 01:15 Ordered UA W/RFX UR CULTURE Stat Lab 08/16/21 13:39 Completed Respiratory Nebulizer ONCE RT 08/16/21 13:37 Active Respiratory Therapy Assessment ONCE RT 08/16/21 13:58 Active Medication Summary Generic Name Dose Route Start Last Admin Trade Name Freq PRN Reason Stop Dose Admin Magnesium Sulfate/Dextrose 100 mls @ 100 mls/hr 08/16/21 13:15 08/16/21 14:33 Magnesium 1 Gm / 100 Ml D5w IV 08/16/21 15:14 100 mls/hr Q1H VINAYAK Administration Discontinued Medications Generic Name Dose Route Start Last Admin Trade Name Freq PRN Reason Stop Dose Admin Albuterol/Ipratropium 3 ml 08/16/21 13:06 08/16/21 13:17 Ipratropium/Albuterol Sulfate 3 Ml Ampul.Neb IH 08/16/21 13:07 3 ml STAT ONE Administration Albuterol/Ipratropium Confirm 08/16/21 13:07 Ipratropium/Albuterol Sulfate 3 Ml Ampul.Neb Administered 08/16/21 13:08 Dose 3 ml IH .STK-MED ONE Methylprednisolone Sodium 0 mg 08/16/21 13:06 Succinate 125 mg/ Sterile IV 08/16/21 13:07 Water 2 ml STAT ONE Sodium Chloride 1,000 mls @ 999 mls/hr 08/16/21 13:06 08/16/21 13:58 Sodium Chloride 0.9% 1000 Ml IV 08/16/21 14:06 999 mls/hr .Q1H1M STA Administration Sodium Chloride Confirm 08/16/21 13:55 Sodium Chloride 0.9% 1000 Ml Administered 08/16/21 13:56 Dose 1,000 mls @ ud .ROUTE .STK-MED ONE Lab/Rad Data: Laboratory Result Diagrams 08/16/21 13:39 08/16/21 13:40 Laboratory Results 08/16/21 08/16/21 08/16/21 Range/Units 13:40 13:39 13:39 WBC (4.0-10.5) K/mm3 RBC (4.1-5.4) M/mm3 Hgb (12.0-16.0) gm/dl Hct (35-47) % MCV (78-100) fl MCH (26-32) pg MCHC (32-36) g/dl RDW (11.5-14.0) % Plt Count (150-450) K/mm3 MPV (7.5-11.0) fl Gran % (36.0-66.0) % Eos # (Auto) (0-0.5) Absolute Lymphs (auto) (1.0-4.6) Absolute Monos (auto) (0.0-1.3) Lymphocytes % (24.0-44.0) % Monocytes % (0.0-12.0) % Eosinophils % (0.00-5.0) % Basophils % (0.0-0.4) % Absolute Granulocytes (1.4-6.9) Basophils # (0-0.4) Sodium 139 (137-145) mmol/L Potassium 3.7 (3.5-5.1) mmol/L Chloride 102 (98-107) mmol/L Carbon Dioxide 27 (22-30) mmol/L Anion Gap 13.2 (5-15) MEQ/L BUN 16 (7-17) mg/dL Creatinine 0.77 (0.52-1.04) mg/dL Estimated GFR > 60.0 ML/MIN Glucose 70 L (74-106) mg/dL Calcium 9.3 (8.4-10.2) mg/dL Total Bilirubin 0.50 (0.2-1.3) mg/dL AST 21 (14-36) U/L ALT 29 (0-35) U/L Alkaline Phosphatase 118 (38-126) U/L Troponin I < 0.012 (0.000-0.034) ng/mL Serum Total Protein 7.8 (6.3-8.2) g/dL Albumin 4.5 (3.5-5.0) g/dL Serum , Qual NEGATIVE (Negative) Urine Color (YELLOW) Urine Appearance (CLEAR) Urine pH (5-6) Ur Specific Brothers (1.005-1.025) Urine Protein (Negative) Urine Ketones (NEGATIVE) Urine Blood (0-5) Mychal/ul Urine Nitrite (NEGATIVE) Urine Bilirubin (NEGATIVE) Urine Urobilinogen (0-1) mg/dL Ur Leukocyte Esterase (NEGATIVE) Urine WBC (Auto) (0-5) /HPF Urine RBC (Auto) (0-2) /HPF U Epithel Cells (Auto) (FEW) /HPF Urine Bacteria (Auto) (NEGATIVE) /HPF Urine Mucus (Auto) (NEGATIVE) /HPF Urine Culture Reflexed (NO) Urine Glucose (NEGATIVE) mg/dL 08/16/21 08/16/21 Range/Units 13:39 13:39 WBC 12.8 H (4.0-10.5) K/mm3 RBC 5.30 (4.1-5.4) M/mm3 Hgb 15.0 (12.0-16.0) gm/dl Hct 45.4 (35-47) % MCV 85.7 (78-100) fl MCH 28.3 (26-32) pg MCHC 33.0 (32-36) g/dl RDW 13.2 (11.5-14.0) % Plt Count 375 (150-450) K/mm3 MPV 9.2 (7.5-11.0) fl Gran % 64.5 (36.0-66.0) % Eos # (Auto) 0.10 (0-0.5) Absolute Lymphs (auto) 2.65 (1.0-4.6) Absolute Monos (auto) 1.79 H (0.0-1.3) Lymphocytes % 20.6 L (24.0-44.0) % Monocytes % 13.9 H (0.0-12.0) % Eosinophils % 0.8 (0.00-5.0) % Basophils % 0.2 (0.0-0.4) % Absolute Granulocytes 8.28 H (1.4-6.9) Basophils # 0.02 (0-0.4) Sodium (137-145) mmol/L Potassium (3.5-5.1) mmol/L Chloride (98-107) mmol/L Carbon Dioxide (22-30) mmol/L Anion Gap (5-15) MEQ/L BUN (7-17) mg/dL Creatinine (0.52-1.04) mg/dL Estimated GFR ML/MIN Glucose (74-106) mg/dL Calcium (8.4-10.2) mg/dL Total Bilirubin (0.2-1.3) mg/dL AST (14-36) U/L ALT (0-35) U/L Alkaline Phosphatase (38-126) U/L Troponin I (0.000-0.034) ng/mL Serum Total Protein (6.3-8.2) g/dL Albumin (3.5-5.0) g/dL Serum , Qual (Negative) Urine Color YELLOW (YELLOW) Urine Appearance SLIGHTLY CLOUDY (CLEAR) Urine pH 5.0 (5-6) Ur Specific Brothers 1.020 (1.005-1.025) Urine Protein NEGATIVE (Negative) Urine Ketones NEGATIVE (NEGATIVE) Urine Blood SMALL (0-5) Mychal/ul Urine Nitrite NEGATIVE (NEGATIVE) Urine Bilirubin NEGATIVE (NEGATIVE) Urine Urobilinogen NEGATIVE (0-1) mg/dL Ur Leukocyte Esterase NEGATIVE (NEGATIVE) Urine WBC (Auto) 3-5 (0-5) /HPF Urine RBC (Auto) 0-2 (0-2) /HPF U Epithel Cells (Auto) RARE (FEW) /HPF Urine Bacteria (Auto) RARE (NEGATIVE) /HPF Urine Mucus (Auto) SLIGHT (NEGATIVE) /HPF Urine Culture Reflexed NO (NO) Urine Glucose NEGATIVE (NEGATIVE) mg/dL - Progress Progress: improved Progress Note: 08/16/21 15:06 We will treat patient has an asthma exacerbation with COVID. Chest x-ray, basic labs, fluids. We will also give magnesium, steroids, breathing treatment here. Chest x-ray shows no obvious pneumonia. No other obvious lab abnormalities. Patient feeling improved with medication. She is 100% on room air, no tachycardia, no other unstable vital signs. Plan at this point in time for discharge home with close follow-up to PCP. We will leave it up to her PCP if she qualifies for outpatient monoclonal antibodies. Otherwise return here for any new or changing symptoms. Patient is already on antibiotics. Plan of care was discussed with patient and all questions answered. The patient is agreeable to be discharged home and both verbal and printed discharge instructions were provided.The patient agreed to seek outpatient follow up as discussed. The patient was given strict instructions to return to the emergency department for worsening symptoms or any other emergent concerns. The patient verbalized understanding. - Departure Departure Disposition: In-patient Admission Clinical Impression: COVID-19, Asthma exacerbation Condition: Stable Critical Care Time: No Referrals: MONET JACOBS [Primary Care Provider] - Follow up/PCP as directed
[2021-08-16] MEDS ORDERED: solu-MEDROL ONE (15:14)
[2021-08-16 16:17] LABS: Slide Review 1 YES
--- NOTE | 2021-08-16 18:26 | XRAY ---
Indication: Cough. Suspect Covid 19. Comparison: September 16, 2020. Portable chest again demonstrates normal heart, lungs, and bony thorax.
== END 2021-08-16 15:24 | disposition home or self-care (01) ==
LOC: ED 12:37
DX: J45.901 Unspecified asthma with (acute) exacerbation (principal); U07.1 COVID-19; I10 Essential (primary) hypertension
CPT/HCPCS: 36000; 36415; 71045; 80053; 81001; 81025; 84484; 85025; 93005; 94640; 96360; 96375; 99284; J2930; J3475; A9270-GY